=== PATIENT | male | born 1960 | race Caucasian/White ===

== ENCOUNTER → 2020-01-11 14:47 | Outpatient (BNVA) | payer OTHER, SELFPAY | PROVIDERS: PCP Family Medicine; Referring Provider Family Medicine; Visit Provider Internal Medicine Cardiovascular Disease | DX: I71.2 Thoracic aortic aneurysm, without rupture (principal); R53.83 Other fatigue; I25.10 Atherosclerotic heart disease of native coronary artery without angina pectoris; I77.9 Disorder of arteries and arterioles, unspecified; E78.5 Hyperlipidemia, unspecified; Z88.0 Allergy status to penicillin; Z88.8 Allergy status to other drugs, medicaments and biological substances; Z79.899 Other long term (current) drug therapy | CPT/HCPCS: 93005 ==

== ENCOUNTER → 2021-02-07 08:16 | Outpatient (REF) | payer OTHER, SELFPAY ==
--- NOTE | 2021-02-07 08:21 | CA_ITS ---
Transthoracic Echocardiogram Patient (Last, First, Middle): Tj Guajardo L Gender: Male Date of : 1960 Age: 60 Procedure Date: 02/07/2021 Procedure Type: Transthoracic Echocardiogram Location: OP Height: 157.48 cm Weight: 79.38 kg BSA: 1.81 m2 Heart Rate: bpm BP: 127 / 50 mmHg Phlebotomist Prn: TAJ Referring MD: Maikel Barone MD Nib Inspector: Maikel Barone MD Symptoms: I71.2 - Thoracic aortic aneurysm, without rupture Study Quality: Fair ECG Rhythm: Sinus Conclusions: - 1. Normal LV systolic and diastolic function 2. Trivial aortic regurgitation 3. Mildly dilated ascending aorta at 4 cm 4. Normal RV systolic pressure 5. No pericardial effusion Findings Left Ventricle Normal left ventricular size, thickness, and systolic function. The visually estimated ejection fraction is between 60-65%. Spectral Doppler is indicative of a normal filling pattern. Right Ventricle Normal right ventricular cavity size and systolic function. Atria Both atria are normal in size. Interatrial shunt cannot be excluded. Aortic Valve The aortic valve was not well visualized. There is no aortic valve stenosis. There is trace (trivial) aortic valve regurgitation. Mitral Valve Likely normal mitral valve structure and function. There is trace mitral valve regurgitation. There is no mitral valve stenosis. Pulmonic Valve The pulmonic valve was not well visualized. Tricuspid Valve Likely normal tricuspid valve structure and function. There is trace tricuspid valve regurgitation. The right ventricular systolic pressure is normal. The right ventricular systolic pressure is 22 mmHg. Normal right atrial pressure. There is no evidence of pulmonary hypertension. Great Vessels The pulmonary artery was not well visualized. There is mild dilatation of the ascending aorta measuring 4.00 cm. Venous The inferior vena cava is normal in size and collapses greater than 50% with inspiration. Pericardium/Pleural There is no evidence of pericardial effusion. Prior Study Comparison No significant change compared to prior study dated: 01/26/2019. Measurements 2D Linear Measurements IVSd: 0.98 0.6-0.9/0.6-1.0 cm LVIDd: 4.36 3.9-5.3/4.2-5.9 cm LVIDd Index: 2.41 2.4-3.2/2.2-3.1 cm/m2 LVIDs: 2.72 2.0-3.6 cm LVPWd: 1.21 0.7-1.1 cm Ao Root: 3.20 2.1-3.5 cm LA Diam: 2.70 2.7-3.8/3.0-4.0 cm LAIDs Index: 1.49 1.5-2.3 cm/m2 LV Mass: 206.05 67-162/88-224 g LV Mass Index: 113.84 43-95/49-115 g/m2 LVOT Diam: 2.20 3.0+(-)1.3 cm 2D Systolic Function EF 4C: 62.90 >55% EF 2C: 62.30 >55% EF BiP: 62.40 >55% Mitral Valve MV Pk E: 0.66 MV PK A: 0.64 MV Decel Time: 241.00 E/A: 1.00 E'Lateral: 10.40 E'Medial: 8.81 E/E' Med: 7.40 E/E' Lat: 6.30 PHT: 71.00 MVA PHT: 3.10 Decel [place]: 2.72 Aortic Valve AoV Pk Allan: 1.40 AoV Pk Grad: 8.00 AI Pk Allan: 3.87 AI [place]: 0.66 LVOT LVOT Pk Allan: 0.98 LVOT Mn Allan: 0.67 LVOT VTI: 0.22 LVOT Pk Grad: 4.00 LVOT Mn Grad: 2.00 LVOT Diam: 2.20 LVOT Area: 3.80 Diastolic Function MV Pk E: 0.66 MV Pk A: 0.64 E/A: 1.00 E'Medial: 8.81 E/E' Med: 7.40 E' Laterial: 10.40 E/E' Lat: 6.30 Tricuspid Valve TR Pk Allan: 2.17 TR Pk Grad: 19.00 RA Press: 3.00 RVSP: 22.00 Great Vessels Aorta Ao Root-2D: 3.20 2.0-3.7 cm Ao Asc: 4.00 2.1-3.4 cm Ao Arch: 2.70 Updated in Other Vendor System with Status of Final Maikel Barone MD electronically signed on 02/09/2021 9:56:22 AM with status of Final
== END ==
LOC: HO.CARD 08:16
PROVIDERS: PCP Family Medicine; Visit Provider Internal Medicine Cardiovascular Disease
DX: I71.2 Thoracic aortic aneurysm, without rupture (principal); I25.10 Atherosclerotic heart disease of native coronary artery without angina pectoris
CPT/HCPCS: 93306

== ENCOUNTER → 2021-02-21 11:15 | Outpatient (BNVA) | payer OTHER, SELFPAY | PROVIDERS: PCP Family Medicine; Visit Provider Internal Medicine Cardiovascular Disease | DX: I71.2 Thoracic aortic aneurysm, without rupture (principal); I25.10 Atherosclerotic heart disease of native coronary artery without angina pectoris; R60.0 Localized edema | CPT/HCPCS: 93005 ==

== ENCOUNTER → 2021-08-16 09:00 | Outpatient (BNVA) | payer OTHER, SELFPAY | PROVIDERS: PCP Family Medicine; Visit Provider Internal Medicine Cardiovascular Disease | DX: Z13.89 Encounter for screening for other disorder (principal) | CPT/HCPCS: 93005 ==

== ENCOUNTER → 2021-09-04 14:00 | Outpatient (BNVA) | payer OTHER, SELFPAY | PROVIDERS: PCP Family Medicine; Visit Provider Internal Medicine Cardiovascular Disease | DX: I71.2 Thoracic aortic aneurysm, without rupture (principal); I25.10 Atherosclerotic heart disease of native coronary artery without angina pectoris | CPT/HCPCS: 93005 ==

== ENCOUNTER 2021-12-10 12:33 | Outpatient (REF) | payer OTHER, SELFPAY ==
--- NOTE | ~2021-12-10 | US_ITS ---
EXAMINATION: US EXTRACRANIAL CAROTID DUPLEX, BILATERAL CLINICAL INFORMATION: Transient ischemic attack COMPARISON: 01/19/2018 TECHNIQUE: Real-time ultrasound and Doppler techniques (integrating B-mode 2-D vascular images, Doppler spectral analysis and color-flow Doppler imaging) were utilized to interrogate the extracranial carotid arteries, the vertebral arteries and proximal subclavian arteries bilaterally. The degree of stenosis is determined by criteria similar to NASCET. FINDINGS: Right Side: 1. There is mild atherosclerotic plaque seen in the bifurcation/proximal ICA region. 2. The common carotid artery PSV proximally is 108 cm/s and distally 80.8 cm/s. 3. The proximal internal carotid artery velocities are 101 cm/s systolic and 35.4 cm/s diastolic. 4. The proximal external carotid artery PSV is 140 cm/s. 5. The vertebral artery shows antegrade flow. 6. The subclavian artery waveforms are normal. Left Side: 1. There is minimal atherosclerotic plaque seen in the bifurcation/proximal ICA region. 2. The common carotid artery PSV proximally is 114 cm/s and distally 99.8 cm/s. 3. The proximal internal carotid artery velocities are 85.6 cm/s systolic and 28.3 cm/s diastolic. 4. The proximal external carotid artery PSV is 136 cm/s. 5. The vertebral artery shows 44 flow. 6. The subclavian artery waveforms are normal. US/US carotid duplex BI IMPRESSION: 1. RIGHT: Minimal, non-hemodynamically significant stenosis of the proximal right internal carotid artery corresponding to a 0-49% stenosis by velocity criteria. 2. LEFT: Minimal, non-hemodynamically significant stenosis of the proximal left internal carotid artery corresponding to a 0-49% stenosis by velocity criteria. 3. There is no change in the category severity of disease when compared to the previous study dated 12/19/2017.
== END 2021-12-10 12:34 | disposition home or self-care (01) ==
LOC: HO.HMGCX 12:33
PROVIDERS: PCP Family Medicine; Visit Provider Psychiatry & Neurology Neurology
DX: R47.9 Unspecified speech disturbances (principal); Z86.73 Personal history of transient ischemic attack (TIA), and cerebral infarction without residual deficits
CPT/HCPCS: 93880

== ENCOUNTER → 2021-12-11 14:39 | Outpatient (REF) | payer OTHER, SELFPAY | LOC: HO.SL 14:39 | PROVIDERS: PCP Family Medicine; Visit Provider Psychiatry & Neurology Neurology | DX: G47.9 Sleep disorder, unspecified (principal); G47.10 Hypersomnia, unspecified; R06.83 Snoring | CPT/HCPCS: 95806 ==

== ENCOUNTER → 2022-02-04 12:43 | Outpatient (REF) | payer OTHER, SELFPAY ==
--- NOTE | 2022-02-04 12:46 | CA_ITS ---
Transthoracic Echocardiogram Patient (Last, First, Middle): Tj Guajardo L Gender: Male Date of : 1960 Age: 61 Procedure Date: 02/04/2022 Procedure Type: Transthoracic Echocardiogram Location: OP Height: 157.48 cm Weight: 90.72 kg BSA: 1.91 m2 Heart Rate: 66 bpm BP: 138 / 72 mmHg Associate Publisher: BRYANT Referring MD: Maikel Barone MD Symptoms: I71.2 - Thoracic aortic aneurysm, without rupture Study Quality: Adequate w contrast ECG Rhythm: Sinus Conclusions: - The left ventricular systolic function is normal. The visually estimated ejection fraction is between 60-65%. - No obvious valvular pathology seen on this study. - There is mild dilatation of the ascending aorta (4-4.1cm). Findings Procedure Information Contrast agent, definity, is being given per protocol without apparent complications. Left Ventricle Normal left ventricular cavity size. The left ventricular systolic function is normal. The visually estimated ejection fraction is between 60-65%. There is no evidence of regional wall motion abnormalities. Diastolic function is normal for age. There is mild septal asymmetric hypertrophy. Right Ventricle Normal right ventricular cavity size and systolic function. Atria Both atria are normal in size. Aortic Valve There is mild calcification of the aortic valve. There is no aortic valve stenosis. There is no aortic valve regurgitation. Mitral Valve The mitral valve appears normal. There is no mitral valve regurgitation. There is no mitral valve stenosis. Pulmonic Valve The pulmonic valve is likely normal. Great Vessels The aortic arch is normal in size. There is mild dilatation of the ascending aorta. Venous The inferior vena cava is normal in size and collapses greater than 50% with inspiration. Pericardium/Pleural There is no evidence of pericardial effusion. Prior Study Comparison No significant change compared to prior study dated: 02/07/2021. Recommendations, Care & Conclusions No obvious valvular pathology seen on this study. Measurements 2D Linear Measurements IVSd: 1.20 0.6-0.9/0.6-1.0 cm LVIDd: 3.61 3.9-5.3/4.2-5.9 cm LVIDd Index: 1.89 2.4-3.2/2.2-3.1 cm/m2 LVIDs: 2.61 2.0-3.6 cm LVPWd: 0.95 0.7-1.1 cm LA Diam: 3.20 2.7-3.8/3.0-4.0 cm LAIDs Index: 1.68 1.5-2.3 cm/m2 LV Mass: 149.51 67-162/88-224 g LV Mass Index: 78.28 43-95/49-115 g/m2 LVOT Diam: 2.00 3.0+(-)1.3 cm 2D Systolic Function EF 4C: 79.80 >55% EF 2C: 79.90 >55% Mitral Valve MV Pk E: 0.78 MV PK A: 0.77 MV Decel Time: 223.00 E/A: 1.00 E'Lateral: 8.92 E'Medial: 5.87 E/E' Med: 13.40 E/E' Lat: 8.80 PHT: 65.00 MVA PHT: 3.38 Decel [place]: 3.52 Aortic Valve AoV Pk Allan: 1.29 AoV Pk Grad: 7.00 LVOT LVOT Pk Allan: 1.29 LVOT Mn Allan: 0.90 LVOT VTI: 0.24 LVOT Pk Grad: 7.00 LVOT Mn Grad: 4.00 LVOT Diam: 2.00 LVOT Area: 3.14 Diastolic Function MV Pk E: 0.78 MV Pk A: 0.77 E/A: 1.00 E'Medial: 5.87 E/E' Med: 13.40 E' Laterial: 8.92 E/E' Lat: 8.80 Right Ventricle TAPSE (mm): 20.90 TVS' Allan: 12.40 Tricuspid Valve RA Press: 3.00 Great Vessels Aorta Sinus of Valsalva: 3.30 2.0-3.5 cm Ao Asc: 4.00 2.1-3.4 cm Ao Arch: 2.60 Ao Desc: 2.10 Pulmonary Veins Pulm Vein S/D 1.10 Pulmonary Valve PV Pk Allan: 1.15 Peak PV Grad: 5.00 Updated in Other Vendor System with Status of Final Lalo Oneill MD electronically signed on 02/05/2022 12:34:59 PM with status of Final
== END ==
LOC: HO.CARD 12:43
PROVIDERS: Visit Provider Internal Medicine Cardiovascular Disease
DX: I71.20 Thoracic aortic aneurysm, without rupture, unspecified (principal)
CPT/HCPCS: 93306; Q9957

== ENCOUNTER → 2022-05-06 20:30 | Outpatient (REF) | payer OTHER, SELFPAY | LOC: HO.SL 20:30 | PROVIDERS: Visit Provider Psychiatry & Neurology Neurology | DX: G47.9 Sleep disorder, unspecified (principal); G47.10 Hypersomnia, unspecified; G47.61 Periodic limb movement disorder; Z86.73 Personal history of transient ischemic attack (TIA), and cerebral infarction without residual deficits | CPT/HCPCS: 95810 ==

== ENCOUNTER → 2022-06-28 13:42 | Outpatient (BNVA) | payer OTHER, SELFPAY | PROVIDERS: PCP Family Medicine; Visit Provider Psychiatry & Neurology Neurology | DX: Z13.89 Encounter for screening for other disorder (principal) ==

== ENCOUNTER 2023-01-03 10:22 | Outpatient (AMB) | payer OTHER, SELFPAY ==
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
[2023-01-03 10:28] VITALS: BP 122/82; PULSE 61; RESP 16; O2SAT 94; BMI 35.7
== END 2023-01-03 11:06 | disposition home or self-care (01) ==
PROVIDERS: Visit Provider Psychiatry & Neurology Neurology
DX: I69.354 Hemiplegia and hemiparesis following cerebral infarction affecting left non-dominant side (principal); F06.70 Mild neurocognitive disorder due to known physiological condition without behavioral disturbance; F80.1 Expressive language disorder; R51.9 Headache, unspecified; G89.29 Other chronic pain; G47.9 Sleep disorder, unspecified; G47.10 Hypersomnia, unspecified; R06.83 Snoring; G51.0 Bell's palsy
CPT/HCPCS: 99214

== ENCOUNTER → 2023-01-03 10:22 | Outpatient (BNVA) | payer OTHER, SELFPAY | PROVIDERS: Visit Provider Psychiatry & Neurology Neurology | DX: R47.9 Unspecified speech disturbances (principal); Z86.73 Personal history of transient ischemic attack (TIA), and cerebral infarction without residual deficits; F09 Unspecified mental disorder due to known physiological condition; R51.9 Headache, unspecified; G89.29 Other chronic pain ==

== ENCOUNTER → 2023-01-16 19:30 | Outpatient (REF) | payer OTHER, SELFPAY | LOC: HO.SL 19:30 | PROVIDERS: PCP Family Medicine; Visit Provider Psychiatry & Neurology Neurology | DX: G47.10 Hypersomnia, unspecified (principal); G47.9 Sleep disorder, unspecified; R06.83 Snoring; R09.89 Other specified symptoms and signs involving the circulatory and respiratory systems | CPT/HCPCS: 95810 ==

== ENCOUNTER → 2023-01-16 21:55 | Outpatient (BNV) | payer OTHER, SELFPAY | PROVIDERS: PCP Family Medicine; Visit Provider Psychiatry & Neurology Neurology | DX: G47.61 Periodic limb movement disorder (principal) | CPT/HCPCS: 95810 ==

== ENCOUNTER → 2023-02-24 12:39 | Outpatient (REF) | payer OTHER, SELFPAY ==
--- NOTE | 2023-02-24 12:41 | CA_ITS ---
Transthoracic Echocardiogram Patient (Last, First, Middle): Tj Guajardo L Gender: Male Date of : 1960 Age: 62 Procedure Date: 02/24/2023 Procedure Type: Transthoracic Echocardiogram Location: OP Height: 157.48 cm Weight: 88.45 kg BSA: 1.89 m2 Heart Rate: bpm BP: 124 / 74 mmHg Snapper On: JOHN/SEAN Referring MD: Maikel Barone MD Symptoms: I71.2 - Thoracic aortic aneurysm, without rupture Study Quality: Fair ECG Rhythm: Sinus Conclusions: - The left ventricular systolic function is normal. The calculated ejection fraction is 62% by biplane method. - Trace to mild aortic regurgitation. - There is mild dilatation of the ascending aorta measuring 4.00 cm. Findings Left Ventricle Normal left ventricular cavity size. The left ventricular systolic function is normal. The calculated ejection fraction is 62% by biplane method. There is no evidence of regional wall motion abnormalities. Diastolic function is normal for age. There is mild septal asymmetric hypertrophy. LV peak GLS 16.6%. Right Ventricle Normal right ventricular cavity size and systolic function. Atria Both atria are normal in size. Aortic Valve There is a normal trileaflet aortic valve. There is mild calcification of the aortic valve. There is no aortic valve stenosis. Trace to mild aortic regurgitation. Mitral Valve The mitral valve appears normal. There is no mitral valve regurgitation. There is no mitral valve stenosis. Pulmonic Valve The pulmonic valve is likely normal. Tricuspid Valve There is no tricuspid valve regurgitation. Tricuspid regurgitation envelope is inadequate for calculation of right ventricular systolic pressure. Great Vessels There is mild dilatation of the ascending aorta measuring 4.00 cm. Venous The inferior vena cava is normal in size and collapses greater than 50% with inspiration. Pericardium/Pleural There is no evidence of pericardial effusion. Prior Study Comparison No significant change compared to prior study dated: 02/04/2022. Measurements 2D Linear Measurements IVSd: 1.21 0.6-0.9/0.6-1.0 cm LVIDd: 4.29 3.9-5.3/4.2-5.9 cm LVIDd Index: 2.27 2.4-3.2/2.2-3.1 cm/m2 LVIDs: 3.42 2.0-3.6 cm LVPWd: 0.73 0.7-1.1 cm LA Diam: 2.70 2.7-3.8/3.0-4.0 cm LAIDs Index: 1.43 1.5-2.3 cm/m2 LV Mass: 169.00 67-162/88-224 g LV Mass Index: 89.42 43-95/49-115 g/m2 LVOT Diam: 2.00 3.0+(-)1.3 cm 2D Systolic Function EF 4C: 60.20 >55% EF 2C: 64.90 >55% EF BiP: 62.30 >55% Mitral Valve MV Pk E: 0.66 MV PK A: 0.68 MV Decel Time: 253.00 E/A: 1.00 E'Lateral: 8.49 E'Medial: 5.22 E/E' Med: 12.70 E/E' Lat: 7.80 PHT: 74.00 MVA PHT: 2.97 Decel [place]: 2.62 Aortic Valve AoV Pk Allan: 1.32 AoV Mn Allan: 0.94 AoV VTI: 0.29 AoV Pk Grad: 7.00 Aov Mn Grad: 4.00 CASSIE Cont.VTI: 2.28 LVOT LVOT Pk Allan: 1.04 LVOT Mn Allan: 0.70 LVOT VTI: 0.21 LVOT Pk Grad: 4.00 LVOT Mn Grad: 2.00 LVOT Diam: 2.00 LVOT Area: 3.14 Diastolic Function MV Pk E: 0.66 MV Pk A: 0.68 E/A: 1.00 E'Medial: 5.22 E/E' Med: 12.70 E' Laterial: 8.49 E/E' Lat: 7.80 Right Ventricle TAPSE (mm): 22.60 TVS' Allan: 12.80 Tricuspid Valve RA Press: 3.00 Great Vessels Aorta Sinus of Valsalva: 3.30 2.0-3.[address] [place]: 2.57 1.7-3.4 cm Ao Asc: 4.00 2.1-3.4 cm Updated in Other Vendor System with Status of Final Lalo nOeill MD electronically signed on 02/25/2023 12:51:44 PM with status of Final
== END ==
LOC: HO.CARD 12:39
PROVIDERS: PCP Family Medicine; Visit Provider Internal Medicine Cardiovascular Disease
DX: I71.20 Thoracic aortic aneurysm, without rupture, unspecified (principal)
CPT/HCPCS: 93306; 93356

== ENCOUNTER → 2023-02-24 12:41 | Outpatient (BNV) | payer OTHER, SELFPAY | PROVIDERS: PCP Family Medicine; Visit Provider Internal Medicine | DX: I35.1 Nonrheumatic aortic (valve) insufficiency (principal) | CPT/HCPCS: 93306 ==

== ENCOUNTER 2023-03-18 09:33 | Outpatient (AMB) | payer OTHER, SELFPAY ==
--- NOTE | 2023-03-18 09:40 | MHC.OFFVIS ---
Intake Vital Signs 03/18/23 09:41 Height 5 ft 2 in Weight 189 lb 9.561 oz BMI 34.7 BP 124/82 Blood Pressure Location Lt brachial Position Sitting Pulse 66 Intake Visit Reasons: 1 year follow-up with ekg Intake Note: 1 year follow-up with ekg after echo Installer Helper Required: No Puncher And Fastener: Puncher And Fastener Present Accompanied by: Spouse Allergies duloxetine Allergy (Mild, Verified 01/03/23 10:27) Chest Pain hydrochlorothiazide Allergy (Mild, Verified 01/03/23 10:27) Palpitations morphine [Morphine] Allergy (Mild, Unverified 01/03/23 10:27) NAUSEA & VOMITING TO NARCOTICS, nausea, vomiting melatonin Allergy (Unknown, Verified 01/03/23 10:27) migraines nebivolol [Bystolic] Allergy (Unknown, Verified 01/03/23 10:27) hypotension nortriptyline Allergy (Unknown, Verified 01/03/23 10:27) dizziness oxycodone [Percocet] Allergy (Unknown, Verified 01/03/23 10:27) nausea,vomiting penicillin V Allergy (Unknown, Verified 01/03/23 10:27) hives topiramate Allergy (Unknown, Verified 01/03/23 10:27) dizziness meperidine [From Demerol] Adverse Reaction (Mild, Unverified 01/03/23 10:27) NAUSEA & VOMITING TO NARCOTICS Medication List - Last Reconciled 03/18/23 by Maikel Barone MD albuterol sulfate 90 mcg/actuation (ProAir HFA) 1 inh inhalation QID allopurinol 300 mg PO DAILY aspirin 81 mg PO DAILY buspirone 7.5 mg PO BID cyclobenzaprine 5 mg PO BEDTIME epinephrine IM gabapentin 200 mg (2 x 100 mg) PO BEDTIME 30 days ketorolac 10 mg PO TID PRN losartan 25 mg PO DAILY magnesium oxide 400 mg PO BEDTIME meclizine 25 mg PO DAILY PRN ondansetron HCl 4 mg PO Q8H riboflavin (vitamin B2) 400 mg PO DAILY rosuvastatin 20 mg PO DAILY sertraline 200 mg PO DAILY HPI HPI Comments History of Present Illness Details Doc comes for follow-up, accompanied by his . He was admitted in December with UTI related sepsis related to procedure. He subsequently another UTI. Patient denies any cardiac complaints. Blood pressure is generally well controlled. He is most recent echocardiogram shows stable ascending aortic aneurysm at 4 cm. Has leg edema mostly in the right lower extremity being followed by vascular surgery. Denies any exertional chest pain. No heart failure symptoms. [facility] Medical History Snoring Cerebrovascular accident Anxiety Depression Cognitive dysfunction Sleep disorder GERD (gastroesophageal reflux disease) Chronic headaches Kidney stones Thoracic aortic aneurysm PVCs (premature ventricular contractions) CAD (coronary artery disease) Hyperlipidemia Left-sided carotid artery disease CAD (coronary artery disease) Thoracic aortic aneurysm Surgical History History of lithotripsy S/P right knee surgery H/O elbow surgery S/P left knee surgery Hx of cardiac cath (~2012) Family History Father Dementia Mother Heart disease Brother CVD (cardiovascular disease) Social History Alcohol intake: never Patient Tobacco Use Status: Former Tobacco user Tobacco use type: Cigarette Gender identity: Male Review of Systems Const Denies chills, Denies fatigue, Denies fever(s), Denies frequent falls, Denies weakness, Denies weight gain and Denies weight loss ENT Denies dizziness Card Denies chest pain, Denies leg edema, Denies lightheadedness, Denies palpitations, Denies dyspnea, Denies dyspnea on exertion, Denies orthopnea and Denies other (loss of consciousness) Resp Denies cough, Denies dyspnea and Denies dyspnea on exertion GI Denies hematochezia and Denies change in stool character Musc Denies abnormal gait, Denies muscle weakness, Denies numbness, Denies radiating pain into limb and Denies tingling Neuro Denies abnormal gait, Denies dizziness, Denies frequent falls, Denies numbness, Denies tingling and Denies weakness Endo Denies fatigue and Denies palpitations Physical Exam Vital Signs: Last Vital Signs Pulse 66 03/18/23 09:41 BP 124/82 03/18/23 09:41 BMI result Body Mass Index 34.7 Const General: cooperative, healthy appearing, comfortable, no acute distress, well developed, alert and awake Nutritional Appearance: obese Orientation/consciousness: patient oriented x3 Limitations: no limitations Eyes General: appearance normal, both eyes and all related structures Neck Neck: Yes full ROM, Yes trachea midline, Yes supple and Yes no JVD Carotids: other ( No carotid bruit) Chest Chest palpation & inspection: normal inspection of the chest Resp Effort & Inspection: normal respiratory effort Auscultation: clear to auscultation bilaterally Cardio Jugular venous distension: no JVD Rate: regular rate Rhythm: regular rhythm Heart sounds: S1 normal heart sound present and S2 normal heart sound present Peripheral pulses: Peripheral pulses 2+ throughout GI Inspection: Yes normal to inspection Auscultation: normal bowel sounds Skin General skin exam: no rashes or lesions noted, elasticity normal and turgor normal Neuro General: patient oriented x3 and no focal motor deficits Extrem General: Yes no clubbing, cyanosis or edema Psych Appearance: grossly normal Office Procedures EKG Details: EKG shows normal sinus rhythm with low-voltage QRS with Q-waves in lead 3 and AVF consistent with pseudo infarct pattern inferior wall due to body habitus [id number], Complete Assessment & Plan Assessment & Plan (1) Thoracic aortic aneurysm: Code(s): I71.2 - Thoracic aortic aneurysm, without rupture Plan: Patient with mild thoracic aortic aneurysm which has remained stable at least last 5 years. Will follow every 2 years now. Management of ascending aortic aneurysm was discussed. No surgical intervention recommended. Continue aggressive blood pressure control at this point in time. (2) CAD (coronary artery disease): Code(s): I25.10 - Atherosclerotic heart disease of [place] coronary artery without angina pectoris Plan: CAD nonobstructive with no current cardiac symptoms. Continue low-dose aspirin therapy. Continue high-intensity statin therapy. Target goal LDL closer to 60 mg/dL. Continue heart healthy lifestyle with regular physical activity. Continue participate in weight loss. Continue aggressive blood pressure control. See below (3) Labile blood pressure: Code(s): R09.89 - Other specified symptoms and signs involving the circulatory and respiratory systems Plan: Labile blood pressure which has been difficult control, currently controlled on low-dose losartan therapy. Stress mitigation strategies was discussed. Low-salt diet was discussed. Advised to maintain adequate hydration. Follow up in the clinic in 2 years time, sooner p.r.n.. Thank you for allowing me to partake in his care Coding Level of Care Code Est Pt Level 4 (28481) Diagnoses Thoracic aortic aneurysm I71.2 CAD (coronary artery disease) I25.10 Labile blood pressure R09.89 CPT Codes EKG - CPT: 28619-[id number], Complete ([id number])
[2023-03-18 09:41] VITALS: BP 124/82; PULSE 66; BMI 34.7
== END 2023-03-18 10:01 | disposition home or self-care (01) ==
PROVIDERS: PCP Family Medicine; Visit Provider Internal Medicine Cardiovascular Disease
DX: I71.20 Thoracic aortic aneurysm, without rupture, unspecified (principal); I25.10 Atherosclerotic heart disease of native coronary artery without angina pectoris; R09.89 Other specified symptoms and signs involving the circulatory and respiratory systems
CPT/HCPCS: 93010; 99214

== ENCOUNTER → 2023-03-18 09:33 | Outpatient (BNVA) | payer OTHER, SELFPAY | PROVIDERS: PCP Family Medicine; Visit Provider Internal Medicine Cardiovascular Disease | DX: I71.20 Thoracic aortic aneurysm, without rupture, unspecified (principal); I25.10 Atherosclerotic heart disease of native coronary artery without angina pectoris; R09.89 Other specified symptoms and signs involving the circulatory and respiratory systems; Z79.82 Long term (current) use of aspirin; Z79.899 Other long term (current) drug therapy | CPT/HCPCS: 93005 ==

== ENCOUNTER 2023-08-12 10:14 | Outpatient (AMB) | payer MEDICAID, SELFPAY ==
[2023-08-12 10:30] VITALS: BP 138/82; BMI 34.7
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
== END 2023-08-12 11:03 | disposition home or self-care (01) ==
PROVIDERS: PCP Family Medicine; Visit Provider Psychiatry & Neurology Neurology
DX: I69.328 Other speech and language deficits following cerebral infarction (principal); I69.318 Other symptoms and signs involving cognitive functions following cerebral infarction; R51.9 Headache, unspecified; G89.29 Other chronic pain; G47.9 Sleep disorder, unspecified; G25.81 Restless legs syndrome; G47.61 Periodic limb movement disorder
CPT/HCPCS: 99214; G2211

== ENCOUNTER → 2023-08-12 10:14 | Outpatient (BNVA) | payer MEDICAID, SELFPAY | PROVIDERS: PCP Family Medicine; Visit Provider Psychiatry & Neurology Neurology | DX: R51.9 Headache, unspecified (principal); G89.29 Other chronic pain; R47.9 Unspecified speech disturbances; G25.81 Restless legs syndrome; G47.61 Periodic limb movement disorder; G47.9 Sleep disorder, unspecified; F09 Unspecified mental disorder due to known physiological condition; Z86.73 Personal history of transient ischemic attack (TIA), and cerebral infarction without residual deficits | CPT/HCPCS: 99212 ==

== ENCOUNTER 2024-02-02 07:21 | Outpatient (AMB) | payer MEDICARE, MEDICAID, SELFPAY ==
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
[2024-02-02 07:33] VITALS: BP 134/88; BMI 34.7
== END 2024-02-02 08:08 | disposition home or self-care (01) ==
PROVIDERS: PCP Family Medicine; Visit Provider Psychiatry & Neurology Neurology
DX: G43.E19 Chronic migraine with aura, intractable, without status migrainosus (principal); R47.9 Unspecified speech disturbances; Z86.73 Personal history of transient ischemic attack (TIA), and cerebral infarction without residual deficits; G25.81 Restless legs syndrome; G47.61 Periodic limb movement disorder; R41.89 Other symptoms and signs involving cognitive functions and awareness
CPT/HCPCS: 99214; G2211

== ENCOUNTER → 2024-02-02 07:21 | Outpatient (BNVA) | payer MEDICARE, MEDICAID, SELFPAY | PROVIDERS: PCP Family Medicine; Visit Provider Psychiatry & Neurology Neurology | DX: G43.E19 Chronic migraine with aura, intractable, without status migrainosus (principal); G47.61 Periodic limb movement disorder; G25.81 Restless legs syndrome; R47.9 Unspecified speech disturbances; F09 Unspecified mental disorder due to known physiological condition; Z86.73 Personal history of transient ischemic attack (TIA), and cerebral infarction without residual deficits | CPT/HCPCS: 99212 ==

== ENCOUNTER 2024-02-24 13:14 | Outpatient (AMB) | payer MEDICARE, MEDICAID, SELFPAY ==
--- NOTE | 2024-02-24 13:15 | MHC.OFFVIS ---
Intake Visit Reasons: BOTOX Intake Note: Patient presents for botox Allergies duloxetine Allergy (Mild, Verified 02/02/24 07:38) Chest Pain hydrochlorothiazide Allergy (Mild, Verified 02/02/24 07:38) Palpitations morphine [Morphine] Allergy (Mild, Unverified 02/02/24 07:38) NAUSEA & VOMITING TO NARCOTICS, nausea, vomiting melatonin Allergy (Unknown, Verified 02/02/24 07:38) migraines nebivolol [Bystolic] Allergy (Unknown, Verified 02/02/24 07:38) hypotension nortriptyline Allergy (Unknown, Verified 02/02/24 07:38) dizziness oxycodone [Percocet] Allergy (Unknown, Verified 02/02/24 07:38) nausea,vomiting penicillin V Allergy (Unknown, Verified 02/02/24 07:38) hives topiramate Allergy (Unknown, Verified 02/02/24 07:38) dizziness meperidine [From Demerol] Adverse Reaction (Mild, Unverified 02/02/24 07:38) NAUSEA & VOMITING TO NARCOTICS HPI Comments Details: ? 63y/o male comes for treatment of migraines with botox. ??? Most frequent reported adverse reactions following injection of botox for chronic migraine include neck pain (9%), headache(5%), eyelid ptosis(4%), migraine(4%), muscular weakness(4%), musculuskeletal stiffness(4%), bronchitis(3%), injection site pain (3%), musculoskeletal pain(3%), myalgia(3%), facial paresis(2%), HTN(2%) and muscle spasms(2%) were discussed in detail. ??? Botulinum toxin typeA 200units Lot no [id number] expiration Nov 2025 was diluted with 4 cc of normal saline . ??? Muscles injected- ??? Frontalis 4 sites ??? Procerus 1 site ??? Historiographer- 2 sites ??? Temporalis- 8 sites ??? Occipitalis- 6 sites ??? Cervical paraspinals- 4 sites ??? Trapezius- 6 sites- 10 units each ??? 5 units each in 31 site ??? Total use- 185units ??? Discarded-15units FOR[facility]LY [facility], [facility] Medical History Chronic migraine with aura Restless legs syndrome (RLS) Snoring Cerebrovascular accident Anxiety Depression Cognitive dysfunction Sleep disorder GERD (gastroesophageal reflux disease) Chronic headaches Kidney stones Thoracic aortic aneurysm PVCs (premature ventricular contractions) CAD (coronary artery disease) Hyperlipidemia Left-sided carotid artery disease CAD (coronary artery disease) Thoracic aortic aneurysm Surgical History History of lithotripsy S/P right knee surgery H/O elbow surgery S/P left knee surgery Hx of cardiac cath (~2012) Family History Father Dementia Mother Heart disease Brother CVD (cardiovascular disease) Social History Alcohol intake: never Patient Tobacco Use Status: Former Tobacco user Tobacco use type: Cigarette Gender identity: Male Review of Systems ENT Reports Normal hearing present Neuro Reports Normal hearing present Physical Exam Const General: cooperative, comfortable and anxious Nutritional Appearance: obese Orientation/consciousness: patient oriented x3 HEENT Head: Yes normal to inspection, Yes normocephalic and Yes atraumatic Eyes Pupils: Equal, round and reactive pupils present Neuro Other: speech is better General: patient oriented x3 and gait normal Cranial nerves: Yes CN's II-XII intact bilaterally, Yes Facial sensation intact/muscles of mastication intact, Yes Equal, round and reactive pupils present, Yes Bilaterally intact EOM present, Yes Nystagmus not present, Yes Normal facial strength present, Yes Midline tongue present, Yes Symmetric palate elevation present, Yes Normal hearing present and Yes Ability to bilaterally elevate shoulders present Gait exam (Neuro): Normal gait present Motor exam (neuro): 5/5 motor strength present throughout and Normal motor muscle tone present throughout Psych Affect: Anxious affect present and Depressed mood present Office Procedures Botulinum toxin Injection 14812 - Migraine Procedure code (CPT) selection complete Office Meds onabotulinumtoxinA 200 unit solution for injection Performing Provider: Mahogany Townsend MD Performing Location: [facility] Administered by: Mahogany Townsend MD on 02/24/24 13:58 Dose Route Admin Location Dispensed Lot Number Expiration Date [facility] Industrial Relations Counselor 185 unit subcut 200 units [id number] ALLERGAN/BOTOX Comments: see HPI Assessment & Plan Assessment & Plan (1) Chronic migraine with aura: Code(s): G43.E09 - Chronic migraine with aura, not intractable, without status migrainosus Category: Medical Qualifiers: Status migrainosus presence: without status migrainosus Intractability: intractable Qualified Code(s): G43.E19 - Chronic migraine with aura, intractable, without status migrainosus Plan Patient tolerated the procedure well He will call with any side effects Orders: Orders AMB Botulinum toxin Injection Today G43.E19 - Chronic migraine with aura, intractable, without status migrainosus Medications: New onabotulinumtoxinA 200 units subcut ONCE 1 ea 0RF migraine G43.E19 - Chronic migraine with aura, intractable, without status migrainosus Coding Level of Care Code Est Pt Level 1 (49035) Diagnoses Intractable chronic migraine with aura and without status migrainosus G43.E19 Status migrainosus presence: without status migrainosus Intractability: intractable CPT Codes Botox Injection - Botox 3: 88139 - Migraine ([id number])
== END 2024-02-24 13:36 | disposition home or self-care (01) ==
PROVIDERS: PCP Family Medicine; Visit Provider Psychiatry & Neurology Neurology
DX: G43.E19 Chronic migraine with aura, intractable, without status migrainosus (principal)
CPT/HCPCS: 64615

== ENCOUNTER → 2024-02-24 13:14 | Outpatient (BNVA) | payer MEDICARE, MEDICAID, SELFPAY | PROVIDERS: PCP Family Medicine; Visit Provider Psychiatry & Neurology Neurology | DX: G43.E19 Chronic migraine with aura, intractable, without status migrainosus (principal) | CPT/HCPCS: 64615; 99211; J0585 ==

== ENCOUNTER 2024-05-20 13:20 | Outpatient (AMB) | payer MEDICARE, MEDICAID, SELFPAY ==
--- NOTE | 2024-05-20 13:30 | A.OFFVIS_ITS ---
Vital Signs 05/20/24 13:31 05/20/24 13:52 05/20/24 13:53 05/20/24 13:55 Height 5 ft 1 in Weight 191 lb 12.835 oz BMI 36.2 BP 124/68 134/66 129/65 127/69 Blood Pressure Location Lt brachial Lt brachial Lt brachial Lt brachial Position Sitting Supine Sitting Standing Pulse 62 67 66 Pulse Source Pulse Oximeter Pulse Oximeter Pulse Oximeter Intake Visit Reasons: f/u erratic bp and increased sob Allergies duloxetine Allergy (Mild, Verified 02/02/24 07:38) Chest Pain hydrochlorothiazide Allergy (Mild, Verified 02/02/24 07:38) Palpitations morphine [Morphine] Allergy (Mild, Unverified 02/02/24 07:38) NAUSEA & VOMITING TO NARCOTICS, nausea, vomiting melatonin Allergy (Unknown, Verified 02/02/24 07:38) migraines nebivolol [Bystolic] Allergy (Unknown, Verified 02/02/24 07:38) hypotension nortriptyline Allergy (Unknown, Verified 02/02/24 07:38) dizziness oxycodone [Percocet] Allergy (Unknown, Verified 02/02/24 07:38) nausea,vomiting penicillin V Allergy (Unknown, Verified 02/02/24 07:38) hives topiramate Allergy (Unknown, Verified 02/02/24 07:38) dizziness meperidine [From Demerol] Adverse Reaction (Mild, Unverified 02/02/24 07:38) NAUSEA & VOMITING TO NARCOTICS Medication List - Last Reconciled 05/20/24 by Jose Juan Lake NP albuterol sulfate 90 mcg/actuation (ProAir HFA) 1 inh inhalation QID allopurinol 300 mg PO DAILY aspirin 81 mg PO DAILY buspirone 7.5 mg PO BID coenzyme Q10 (Co Q-10) 200 mg PO DAILY cyclobenzaprine 5 mg PO BEDTIME epinephrine IM gabapentin 100 mg PO .qhs ketorolac 10 mg PO TID PRN losartan 50 mg PO DAILY magnesium oxide 400 mg PO BEDTIME meclizine 25 mg PO DAILY PRN ondansetron HCl 4 mg PO Q8H riboflavin (vitamin B2) 400 mg PO DAILY rosuvastatin 20 mg PO DAILY sertraline 150 mg PO DAILY HPI Comments Details: This is a 64-year-old male patient with a history of hypertension, coronary artery disease, aortic aneurysm, and obesity presenting with complaints of shortness of breath on exertion and dizziness. Patient reports that his blood pressure has also been fluctuating ranging from the 120s to 150s systolic. He was previously on losartan 25 mg but his primary care provider increased the dosage to 50 mg yesterday. The patient describes that his dizziness is nonpositional and random in nature. In addition he has been experiencing pins and needles sensation throughout his body for which he is under the care of neurology. The patient denies any other associated symptoms of exertional chest pain, palpitations, fatigue, orthopnea, PND, leg edema, presyncope, or syncope. Patient reports being compliant with his medications. FORMERLY [facility] Medical History Chronic migraine with aura Restless legs syndrome (RLS) Snoring Cerebrovascular accident Anxiety Depression Cognitive dysfunction Sleep disorder GERD (gastroesophageal reflux disease) Chronic headaches Kidney stones Thoracic aortic aneurysm PVCs (premature ventricular contractions) CAD (coronary artery disease) Hyperlipidemia Left-sided carotid artery disease CAD (coronary artery disease) Thoracic aortic aneurysm Surgical History History of lithotripsy S/P right knee surgery H/O elbow surgery S/P left knee surgery Hx of cardiac cath (~2012) Family History Father Dementia Mother Heart disease Brother CVD (cardiovascular disease) Social History Alcohol intake: never Patient Tobacco Use Status: Former Tobacco user Tobacco use type: Cigarette Gender identity: Male Review of Systems Const Denies weakness ENT Denies dizziness Card Denies chest pain, Denies chest pain with activity, Denies syncope, Denies rapid heart rate, Denies pedal edema, Denies edema, Denies leg edema, Reports lightheadedness, Denies palpitations, Reports dyspnea, Denies dyspnea on exertion and Denies orthopnea Resp Denies cough, Reports dyspnea and Denies dyspnea on exertion GI Denies hematochezia and Denies change in stool character Musc Denies abnormal gait, Denies muscle cramps, Denies muscle weakness, Denies numbness, Denies radiating pain into limb and Denies tingling Neuro Denies abnormal gait, Denies dizziness, Denies syncope, Denies numbness, Denies tingling and Denies weakness Endo Denies palpitations Physical Exam Vital Signs: Last Vital Signs Pulse 66 05/20/24 13:55 BP 127/69 05/20/24 13:55 BMI result Body Mass Index 36.2 Const General: cooperative, healthy appearing, comfortable and no acute distress Orientation/consciousness: patient oriented x3 HEENT Head: Yes normal to inspection Neck Neck: Yes normal visual inspection, Yes trachea midline and Yes supple Chest Chest palpation & inspection: normal inspection of the chest Resp Effort & Inspection: normal respiratory effort Auscultation: clear to auscultation bilaterally, no crackles, no rales, no rhonchi and no wheezes Cardio Jugular venous distension: no JVD Palpation: normal PMI Rate: regular rate Rhythm: regular rhythm Heart sounds: S1 normal heart sound present, S2 normal heart sound present, no click, no gallops, no murmurs and no rubs Peripheral pulses: Peripheral pulses 2+ throughout GI Inspection: Yes normal to inspection Palpation (GI): Soft to palpation Auscultation: normal bowel sounds Skin General skin exam: no rashes or lesions noted Neuro General: patient oriented x3 Extrem General: Yes normal to inspection, No no pedal edema and No calf tenderness Psych Appearance: grossly normal Mental Status: mental status grossly normal Speech and movement: Normal speech and movement present Office Procedures EKG Details: EKG today shows normal sinus rhythm, rate 63 beats per minute, low-voltage QRS, nonspecific T-wave changes, [place], [place] [id number]-[id number], Complete Assessment & Plan Assessment & Plan (1) Dyspnea: Code(s): R06.00 - Dyspnea, unspecified Category: Medical (2) Dizziness: Code(s): R42 - Dizziness and giddiness Category: Medical (3) Thoracic aortic aneurysm: Code(s): I71.2 - Thoracic aortic aneurysm, without rupture Category: Medical (4) CAD (coronary artery disease): Code(s): I25.10 - Atherosclerotic heart disease of [place] coronary artery without angina pectoris Category: Medical (5) Labile blood pressure: Code(s): R09.89 - Other specified symptoms and signs involving the circulatory and respiratory systems Category: Medical Plan 02/24/2023-echo study showed a normal EF of 62%, trace to mild aortic regurgitation, mild dilation of the ascending aorta at 4 cm. Patient's symptoms are concerning given his significant risk factors. We will proceed with an exercise stress test to evaluate for any ischemic changes. Additionally, we will repeat an echocardiogram to look for any wall motion abno rmalities, valvular dysfunction, and to monitor the aortic aneurysm. The patient is clinically euvolemic today. His orthostatic blood pressures were negative. Continue losartan 50 mg daily with a goal less than 130/80. Patient's most recent LDL at his PCP was 67, within the goal of less than 70. Continue Crestor. The patient mentioned that a previous provider had recommended a loop recorder due to concerns about a potential arrhythmia. No records of this. However, we will proceed with a 3 day Holter monitor to assess for any arrhythmic activity. Advised with the patient to continue with his weight loss management through diet and exercise. Patient will follow up with completion of these tests. In the interim, patient will call us with any concerns or change in symptoms. This note was generated using voice recognition software. While every effort has been made to ensure accuracy and proper internet e commerce specialist, there may be occasional errors that could affect the content or meaning of the described symptoms. Orders: Orders ECG 3 day holter monitor Today R00.2 - Palpitations, R06.00 - Dyspnea, unspecified AMB EKG-In Office Today R42 - Dizziness and giddiness CA echo transthoracic complete Today I71.2 - Thoracic aortic aneurysm, without rupture CA stress test Today R06.00 - Dyspnea, unspecified Coding Level of Care Code Est Pt Level 4 (62416) Complex EM visit Add On G2211 Diagnoses Dyspnea R06.00 Dizziness R42 Thoracic aortic aneurysm I71.2 CAD (coronary artery disease) I25.10 Labile blood pressure R09.89 CPT Codes EKG - CPT: 77531-[id number], Complete ([id number]) Time Spent (min) 34 Comment Time spent in reviewing the chart, test results, assessment, counseling and documentation.
[2024-05-20 13:31] VITALS: BP 124/68; BMI 36.2
[2024-05-20 13:52] VITALS: BP 134/66; PULSE 62
[2024-05-20 13:53] VITALS: BP 129/65; PULSE 67
[2024-05-20 13:55] VITALS: BP 127/69; PULSE 66
--- OUTSIDE RECORDS SUMMARY | 2024-05-20 16:09 | XMS_ITS | Encounter Summary ---
Author Organization [facility], Address [address] [place] [address] Phone Care Team Providers Care Information Technology Instructor Name Role Phone Emely Cid MD Primary Care Provider [phone] Encounter Details Date Type Department Care Team (Late st Contact Info) Description 04/24/2023 Documentation Only [facility], [address] [place] [phone] Gina York [address] [place] [phone] Social History Tobacco Use Types Packs/Day Years Used Date Smoking Tobacco: Former Cigarettes 3 18 0 03/17/1976 - 07/15/1989 Smokeless Tobacco: Never Alcohol Use Standard Drinks/Week Comments Not Currently 4 (1 standard drink = 0.6 oz pur e alcohol) Week Sex and Gender Information Value Date Recorded Sex Assigned at Not on file Legal Sex Male 5:13 PM EST Gender Identity Not on file Sexual Orientation Not on file documented as of this encounter Plan of Treatment Not on file documented as of this encounter Visit Diagnoses Not on filedocumented in this encounter Care Teams Information Technology Instructor Relationship Specialty Start Date End Date Emely Cid MD [address] [place] [phone] PCP - General Family Medicine 09/11/22 documented as of this encounter
--- OUTSIDE RECORDS SUMMARY | 2024-05-20 16:09 | XMS_ITS | Clinical Summary ---
Author Organization [facility], Address [address] [address] Phone Care Team Providers Care Chief Operations Officer Name Role Phone Emely Cid MD Primary Care Provider Allergies Active Allergy Reactions Criticality Noted Date Comments Atorvastatin Other (see comments) 12/06/2020 Bee Venom Anaphylaxis High 12/13/2022 Celecoxib 03/20/2021 Desipramine Medium 12/06/2020 Other reaction(s): Urinary Retention Fluticasone 12/06/2020 Fluticasone-Salmeterol 12/13/2022 Other reaction(s): headaches Gabapentin 12/06/2020 Hydrochlorothiazide 12/06/2020 Melatonin 12/13/2022 Other reaction(s): migraines Meloxicam Hives Medium 12/06/2020 Meperidine GI intolerance 02/10/2018 Morphine GI intolerance 02/10/2018 Nebivolol Other (see comments) Medium 12/06/2020 Nebivolol Hcl 12/13/2022 Other reaction(s): low bp Nortriptyline 12/06/2020 Other reaction(s): extreme diziness Oxycodone-Acetaminophen 12/06/2020 Penicillins Anaphylaxis High 02/10/2018 Other reaction(s): anaphlaxis Topiramate 12/06/2020 Other reaction(s): extreme dizziness Medications acetaminophen-c odeine (TYLENOL with CODEINE #3) 300-30 MG per tablet Take 1 tablet by mouth every 6 (six) hours if needed 12/02/2022 Active allopurinol (ZYLOPRIM) 300 MG tablet Take 300 mg by mouth 1 (one) time each day 11/15/2022 Active aspirin (ST CHAN) 81 MG EC tablet Take 81 mg by mouth in the morning. 05/01/2021 Active busPIRone (BUSPAR) 7.5 MG tablet TAKE 1 TO 2 TABLETS BY MOUTH AT BEDTIME 09/24/2022 Active coenzyme Q-10 200 MG capsule Take 200 mg by mouth in the morning. Active gabapentin (NEURONTIN) 100 MG capsule Take 200 mg by mouth every night 11/29/2022 Active losartan (COZAAR) 25 MG tablet Take 25 mg by mouth 1 (one) time each day 11/07/2022 Active magnesium oxide 400 (240 Mg) MG tablet Take 1 tablet by mouth at bed time 11/29/2022 Active phenazopyridine (PYRIDIUM) 200 MG tablet TAKE 1 TABLET BY MOUTH THREE TIMES DAILY FOR 7 DAYS 12/02/2022 Active rosuvastatin (CRESTOR) 20 MG tablet Take 20 mg by mouth 1 (one) time each day 11/22/2022 Active sertraline (ZOLOFT) 100 MG tablet Take 100 mg by mouth 1 (one) time each day 11/07/2022 Active tamsulosin (Flomax) 0.4 MG 24 hr capsule Take 0.4 mg by mouth 02/28/2017 Active Riboflavin 400 MG capsule Take by mouth Active Active Problems Problem Noted Date Diagnosed Date Nephrolithiasis 12/13/2022 Hypertension 12/13/2022 Immunizations Name Administration Dates Next Due Influenza (IM) Preservative Free 01/15/2015,12/15 Influenza Split Preservative Free ID 12/04/2011 Influenza, Quadrivalent, Preservative Free 12/02,11/01/2016,01/04/2016 Influenza, Quadrivalent, With Preservative 11/16,11/24/2018,10/29/2017 Influenza, Unspecified 12/22/2013 Pfizer SARS-COV-2 07/30/2020,07/09/2020 Shingrix 10/24/2019,05/17/2019 Td 08/23/2020 Tdap 03/21/2010 Family History Medical History Relation Comments Cancer Brother Dementia Father Heart disease Father Hypertension Father Anemia Mother Heart disease Mother Hypertension Mother Autoimmune disease Sister Relation Status Comments Brother Father Mother Sister Social History Tobacco Use Types Packs/Day Years Used Date Smoking Tobacco: Former Cigarettes 3 18 0 03/17/1976 - 07/15/1989 Smokeless Tobacco: Never Tobacco Cessation:Counseling Given: Not Answered Alcohol Use Standard Drinks/Week Comments Not Currently 4 (1 standard drink = 0.6 oz pur e alcohol) Week Sex and Gender Information Value Date Recorded Sex Assigned at Not on file Legal Sex Male 5:13 PM EST Gender Identity Not on file Sexual Orientation Not on file Plan of Treatment Health Maintenance Due Date Last Done Comments Pneumococcal Vaccine: Pediatrics (0 to 5 Years) and At-Risk Patients (6 to 64 Years) (1 of 2 - PCV) 1968 Colorectal Cancer Screening: Annual FOBT 2011 Colorectal Cancer Screening: Colonoscopy 2011 Colorectal Cancer Screening: Sigmoidoscopy 2011 Influenza Vaccine (#1) 2023 0, 11/24/2018, 12/02/2017, Additional history exists Hepatitis B Vaccine Aged Out No longe r eligible based on patient's age to complete this topic Insurance [address] [place] [id number] Care Teams Chief Operations Officer Relationship Specialty Start Date End Date Emely Cid MD [address] [place] [address] PCP - General Family Medicine 09/11/22
--- OUTSIDE RECORDS SUMMARY | 2024-05-20 16:09 | XMS_ITS | Encounter Summary ---
Author Organization [facility], Address [address] [place] [address] Phone Care Team Providers Care Global Climate Change Analyst Name Role Phone Emely Cid MD Primary Care Provider [phone] Encounter Details Date Type Department Care Team (Late st Contact Info) Description 12/13/2022 Documentation Only [facility], [address] [place] [phone] Lis Martinez [address] [place] [phone] Social History Tobacco Use Types Packs/Day Years [...] on filedocumented in this encounter Care Teams Global Climate Change Analyst Relationship Specialty Start Date End Date Emely Cid MD [address] [place] [address] PCP - General Family Medicine 09/11/22 documented as of this encounter
--- OUTSIDE RECORDS SUMMARY | 2024-05-20 16:09 | XMS_ITS | Encounter Summary ---
Author Organization [facility], Address [address] [place] [address] Phone Care Team Providers Care Newspaper Reporter Name Role Phone Emely Cid MD Primary Care Provider [phone] Encounter Details Date Type Department Care Team (Late st Contact Info) Description 09/13/2022 Documentation Only [facility], - [address] [place] [address] Emely Cid MD [address] [place] [phone] Social History Tobacco Use Types Packs/Day Years Used Date Smoking Tobacco: Never Assessed Sex and Gender Information Value Date Recorded Sex Assigned at Not on file Legal Sex Male 5:13 PM EST Gender Identity Not on file Sexual Orientation Not on file documented as of this encounter Plan of Treatment Not on file documented as of this encounter Visit Diagnoses Not on filedocumented in this encounter Care Teams Newspaper Reporter Relationship Specialty Start Date End Date Emely Cid MD [address] [place] [phone] PCP - General Family Medicine 09/11/22 documented as of this encounter
== END 2024-05-20 14:28 | disposition home or self-care (01) ==
PROVIDERS: PCP Family Medicine
DX: R06.00 Dyspnea, unspecified (principal); R42 Dizziness and giddiness; I71.20 Thoracic aortic aneurysm, without rupture, unspecified; I25.10 Atherosclerotic heart disease of native coronary artery without angina pectoris; R09.89 Other specified symptoms and signs involving the circulatory and respiratory systems
CPT/HCPCS: 93010; 99214; G2211

== ENCOUNTER → 2024-05-20 13:20 | Outpatient (BNVA) | payer MEDICARE, MEDICAID, SELFPAY | PROVIDERS: PCP Family Medicine | DX: I10 Essential (primary) hypertension (principal); I25.10 Atherosclerotic heart disease of native coronary artery without angina pectoris; I71.20 Thoracic aortic aneurysm, without rupture, unspecified; E66.9 Obesity, unspecified; R06.00 Dyspnea, unspecified; R42 Dizziness and giddiness; R09.89 Other specified symptoms and signs involving the circulatory and respiratory systems; R00.2 Palpitations; Z68.36 Body mass index [BMI] 36.0-36.9, adult | CPT/HCPCS: 93005; 99212 ==

== ENCOUNTER 2024-06-08 08:15 | Outpatient (AMB) | payer MEDICARE, MEDICAID, SELFPAY ==
--- NOTE | 2024-06-08 08:23 | MHC.OFFVIS ---
Intake Visit Reasons: Botox Allergies duloxetine Allergy (Mild, Verified 02/02/24 07:38) Chest Pain hydrochlorothiazide Allergy (Mild, Verified 02/02/24 07:38) Palpitations morphine [Morphine] Allergy (Mild, Unverified 02/02/24 07:38) NAUSEA & VOMITING TO NARCOTICS, nausea, vomiting melatonin Allergy (Unknown, Verified 02/02/24 07:38) migraines nebivolol [Bystolic] Allergy (Unknown, Verified 02/02/24 07:38) hypotension nortriptyline Allergy (Unknown, Verified 02/02/24 07:38) dizziness oxycodone [Percocet] Allergy (Unknown, Verified 02/02/24 07:38) nausea,vomiting penicillin V Allergy (Unknown, Verified 02/02/24 07:38) hives topiramate Allergy (Unknown, Verified 02/02/24 07:38) dizziness meperidine [From Demerol] Adverse Reaction (Mild, Unverified 02/02/24 07:38) NAUSEA & VOMITING TO NARCOTICS [facility] Medical History Chronic migraine with aura Restless legs syndrome (RLS) Snoring Cerebrovascular accident Anxiety Depression Cognitive dysfunction Sleep disorder GERD (gastroesophageal reflux disease) Chronic headaches Kidney stones Thoracic aortic aneurysm PVCs (premature ventricular contractions) CAD (coronary artery disease) Hyperlipidemia Left-sided carotid artery disease CAD (coronary artery disease) Thoracic aortic aneurysm Surgical History History of lithotripsy S/P right knee surgery H/O elbow surgery S/P left knee surgery Hx of cardiac cath (~2012) Family History Father Dementia Mother Heart disease Brother CVD (cardiovascular disease) Social History Alcohol intake: never Patient Tobacco Use Status: Former Tobacco user Tobacco use type: Cigarette Gender identity: Male Coding
--- NOTE | 2024-06-08 08:24 | MHC.OFFVIS ---
Vital Signs 06/08/24 08:27 Height 5 ft 1 in Weight 193 lb BMI 36.5 Intake Visit Reasons: Botox Intake Note: Patient presents for botox injection Practice supplied Allergies duloxetine Allergy (Mild, Verified 06/08/24 08:27) Chest Pain hydrochlorothiazide Allergy (Mild, Verified 06/08/24 08:27) Palpitations morphine [Morphine] Allergy (Mild, Unverified 06/08/24 08:27) NAUSEA & VOMITING TO NARCOTICS, nausea, vomiting melatonin Allergy (Unknown, Verified 06/08/24 08:27) migraines nebivolol [Bystolic] Allergy (Unknown, Verified 06/08/24 08:27) hypotension nortriptyline Allergy (Unknown, Verified 06/08/24 08:27) dizziness oxycodone [Percocet] Allergy (Unknown, Verified 06/08/24 08:27) nausea,vomiting penicillin V Allergy (Unknown, Verified 06/08/24 08:27) hives topiramate Allergy (Unknown, Verified 06/08/24 08:27) dizziness meperidine [From Demerol] Adverse Reaction (Mild, Unverified 06/08/24 08:27) NAUSEA & VOMITING TO NARCOTICS PFSH Medical History Chronic migraine with aura Restless legs syndrome (RLS) Snoring Cerebrovascular accident Anxiety Depression Cognitive dysfunction Sleep disorder GERD (gastroesophageal reflux disease) Chronic headaches Kidney stones Thoracic aortic aneurysm PVCs (premature ventricular contractions) CAD (coronary artery disease) Hyperlipidemia Left-sided carotid artery disease CAD (coronary artery disease) Thoracic aortic aneurysm Surgical History History of lithotripsy S/P right knee surgery H/O elbow surgery S/P left knee surgery Hx of cardiac cath (~2012) Family History Father Dementia Mother Heart disease Brother CVD (cardiovascular disease) Social History Alcohol intake: never Patient Tobacco Use Status: Former Tobacco user Tobacco use type: Cigarette Gender identity: Male Coding
[2024-06-08 08:27] VITALS: BMI 36.5
--- NOTE | 2024-06-08 08:31 | MHC.OFFVIS ---
Vital Signs 06/08/24 08:27 Height 5 ft 1 in Weight 193 lb BMI 36.5 Intake Visit Reasons: Botox Allergies duloxetine Allergy (Mild, Verified 06/08/24 08:27) Chest Pain hydrochlorothiazide Allergy (Mild, Verified 06/08/24 08:27) Palpitations morphine [Morphine] Allergy (Mild, Unverified 06/08/24 08:27) NAUSEA & VOMITING TO NARCOTICS, nausea, vomiting melatonin Allergy (Unknown, Verified 06/08/24 08:27) migraines nebivolol [Bystolic] Allergy (Unknown, Verified 06/08/24 08:27) hypotension nortriptyline Allergy (Unknown, Verified 06/08/24 08:27) dizziness oxycodone [Percocet] Allergy (Unknown, Verified 06/08/24 08:27) nausea,vomiting penicillin V Allergy (Unknown, Verified 06/08/24 08:27) hives topiramate Allergy (Unknown, Verified 06/08/24 08:27) dizziness meperidine [From Demerol] Adverse Reaction (Mild, Unverified 06/08/24 08:27) NAUSEA & VOMITING TO NARCOTICS Medication List - Last Reconciled 06/08/24 by Mahogany Townsend MD albuterol sulfate 90 mcg/actuation (ProAir HFA) 1 inh inhalation QID allopurinol 300 mg PO DAILY aspirin 81 mg PO DAILY buspirone 7.5 mg PO BID coenzyme Q10 (Co Q-10) 200 mg PO DAILY cyclobenzaprine 5 mg PO BEDTIME epinephrine IM gabapentin 100 mg PO .qhs ketorolac 10 mg PO TID PRN losartan 50 mg PO DAILY magnesium oxide 400 mg PO BEDTIME meclizine 25 mg PO DAILY PRN ondansetron HCl 4 mg PO Q8H riboflavin (vitamin B2) 400 mg PO DAILY rosuvastatin 20 mg PO DAILY sennosides (senna) 8.6 - 17.2 mg PO Q OTHER DAY sertraline 150 mg PO DAILY HPI Comments Details: ??64y/o male comes for treatment of migraines with botox. Most frequent reported adverse reactions following injection of botox for chronic migraine include neck pain (9%), headache(5%), eyelid ptosis(4%), migraine(4%), muscular weakness(4%), musculuskeletal stiffness(4%), bronchitis(3%), injection site pain (3%), musculoskeletal pain(3%), myalgia(3%), facial paresis(2%), HTN(2%) and muscle spasms(2%) were discussed in detail. Migraine days prior to botox- 20 How long do the migraines last-2-3 days Intensity of lgmscejn-4-17 ER visits related to dxwvogwu-8-1 Effectiveness of botox from last two treatment(s)- this is his first treatment Botulinum toxin typeA 200units Lot no [id number] expiration June 2023 was diluted with 4 cc of normal saline . Muscles injected- Frontalis 4 sites Procerus 1 site Piece Dyeing Machine Tender- 2 sites Temporalis- 8 sites Occipitalis- 6 sites Cervical paraspinals- 4 sites Trapezius- 6 sites- 10 units each 5 units each in 31 site Total use- 185units Discarded-15units [facility] Medical History Chronic migraine with aura Restless legs syndrome (RLS) Snoring Cerebrovascular accident Anxiety Depression Cognitive dysfunction Sleep disorder GERD (gastroesophageal reflux disease) Chronic headaches Kidney stones Thoracic aortic aneurysm PVCs (premature ventricular contractions) CAD (coronary artery disease) Hyperlipidemia Left-sided carotid artery disease CAD (coronary artery disease) Thoracic aortic aneurysm Surgical History History of lithotripsy S/P right knee surgery H/O elbow surgery S/P left knee surgery Hx of cardiac cath (~2012) Family History Father Dementia Mother Heart disease Brother CVD (cardiovascular disease) Social History Alcohol intake: never Patient Tobacco Use Status: Former Tobacco user Tobacco use type: Cigarette Gender identity: Male Review of Systems ENT Reports Normal hearing present Neuro Reports Normal hearing present Physical Exam Vital Signs: BMI result Body Mass Index 36.5 Const General: cooperative, comfortable and anxious Nutritional Appearance: obese Orientation/consciousness: patient oriented x3 HEENT Head: Yes normal to inspection, Yes normocephalic and Yes atraumatic Eyes Pupils: Equal, round and reactive pupils present Neuro Other: speech is better General: patient oriented x3 and gait normal Cranial nerves: Yes CN's II-XII intact bilaterally, Yes Facial sensation intact/muscles of mastication intact, Yes Equal, round and reactive pupils present, Yes Bilaterally intact EOM present, Yes Nystagmus not present, Yes Normal facial strength present, Yes Midline tongue present, Yes Symmetric palate elevation present, Yes Normal hearing present and Yes Ability to bilaterally elevate shoulders present Gait exam (Neuro): Normal gait present Motor exam (neuro): 5/5 motor strength present throughout and Normal motor muscle tone present throughout Psych Affect: Anxious affect present and Depressed mood present Office Procedures Botulinum toxin Injection 11951 - Migraine Procedure code (CPT) selection complete Office Meds onabotulinumtoxinA 200 unit solution for injection Performing Provider: Mahogany Townsend MD Performing Location: [facility] Administered by: Mahogany Townsend MD on 06/08/24 08:46 Dose Route Admin Location Dispensed Lot Number Expiration Date [facility] Crew Trainer 200 unit subcut 200 units [id number] 06/15/26 6927-2781-83 ALLERGAN/BOTOX Comments: see HPI Assessment & Plan Assessment & Plan (1) Chronic migraine with aura: Code(s): G43.E09 - Chronic migraine with aura, not intractable, without status migrainosus Category: Medical Qualifiers: Status migrainosus presence: without status migrainosus Intractability: intractable Qualified Code(s): G43.E19 - Chronic migraine with aura, intractable, without status migrainosus Plan Patinet tolerated the procedure well He will call with any side effects Orders: Orders AMB Botulinum toxin Injection Today G43.E19 - Chronic migraine with aura, intractable, without status migrainosus Medications: New onabotulinumtoxinA 200 units subcut ONCE 1 ea 0RF Migraine G43.E19 - Chronic migraine with aura, intractable, without status migrainosus Coding Level of Care Code Est Pt Level 1 (19340) Diagnoses Intractable chronic migraine with aura and without status migrainosus G43.E19 Status migrainosus presence: without status migrainosus Intractability: intractable CPT Codes Botox Injection - Botox 3: 00565 - Migraine ([id number])
== END 2024-06-08 08:45 | disposition home or self-care (01) ==
LOC: HO.HSMS 08:16
PROVIDERS: PCP Family Medicine; Visit Provider Psychiatry & Neurology Neurology
DX: G43.E19 Chronic migraine with aura, intractable, without status migrainosus (principal)
CPT/HCPCS: 64615

== ENCOUNTER → 2024-06-08 08:15 | Outpatient (BNVA) | payer MEDICARE, MEDICAID, SELFPAY | PROVIDERS: PCP Family Medicine; Visit Provider Psychiatry & Neurology Neurology | DX: G43.E19 Chronic migraine with aura, intractable, without status migrainosus (principal) | CPT/HCPCS: 64615; 99211; J0585 ==

== ENCOUNTER → 2024-06-17 07:46 | Outpatient (REF) | payer MEDICARE, MEDICAID, SELFPAY ==
--- NOTE | 2024-06-17 07:48 | CA_ITS ---
Transthoracic Echocardiogram Patient (Last, First, Middle): Tj Guajardo L Gender: Male Date of : 1960 Age: 64 Procedure Date: 06/17/2024 Procedure Type: Transthoracic Echocardiogram Location: OP Height: 154.94 cm Weight: 87.54 kg BSA: 1.86 m2 Heart Rate: 65 bpm BP: 127 / 68 mmHg Mixed Crop Farmer: SB/RC Referring MD: Jose Juan Lake NP Symptoms: I71.2 - Thoracic aortic aneurysm, without rupture Study Quality: Fair ECG Rhythm: Sinus Conclusions: - The left ventricular systolic function is normal. The calculated ejection fraction is 62% by biplane method. - No obvious valvular pathology seen on this study. - There is mild dilatation of the ascending aorta measuring 4.10 cm. Findings Procedure Information The quality of the study was technically difficult. The study quality is limited by lung artifact. Left Ventricle Normal left ventricular cavity size. The left ventricular systolic function is normal. The calculated ejection fraction is 62% by biplane method. There is no evidence of regional wall motion abnormalities. Diastolic function is normal for age. There is mild septal asymmetric hypertrophy. Right Ventricle Normal right ventricular cavity size and systolic function. Atria Both atria are normal in size. Aortic Valve There is a normal trileaflet aortic valve. There is no aortic valve stenosis. There is no aortic valve regurgitation. Mitral Valve The mitral valve appears normal. There is no mitral valve regurgitation. There is no mitral valve stenosis. Pulmonic Valve The pulmonic valve is likely normal. Tricuspid Valve Normal tricuspid valve structure. There is no tricuspid valve regurgitation. Tricuspid regurgitation envelope is inadequate for calculation of right ventricular systolic pressure. Great Vessels The aortic arch is normal in size. There is mild dilatation of the ascending aorta measuring 4.10 cm. Venous The inferior vena cava is normal in size and collapses less than 50% with inspiration. Pericardium/Pleural There is no evidence of pericardial effusion. Prior Study Comparison No significant change compared to prior study dated: 02/24/2023. Recommendations, Care & Conclusions No obvious valvular pathology seen on this study. Measurements 2D Linear Measurements IVSd: 1.03 0.6-0.9/0.6-1.0 cm LVIDd: 4.05 3.9-5.3/4.2-5.9 cm LVIDd Index: 2.18 2.4-3.2/2.2-3.1 cm/m2 LVIDs: 2.60 2.0-3.6 cm LVPWd: 0.76 0.7-1.1 cm LA Diam: 3.10 2.7-3.8/3.0-4.0 cm LAIDs Index: 1.67 1.5-2.3 cm/m2 LV Mass: 137.95 67-162/88-224 g LV Mass Index: 74.17 43-95/49-115 g/m2 LVOT Diam: 1.90 3.0+(-)1.3 cm 2D Systolic Function EF 4C: 56.90 >55% EF 2C: 63.60 >55% EF BiP: 61.60 >55% Mitral Valve MV Pk E: 0.73 MV PK A: 0.81 MV Decel Time: 235.00 E/A: 0.90 E'Lateral: 9.36 E'Medial: 6.20 E/E' Med: 11.80 E/E' Lat: 7.80 PHT: 69.00 MVA PHT: 3.19 Decel Peach: 3.12 Aortic Valve AoV Pk Allan: 1.26 AoV Pk Grad: 6.00 CASSIE: 2.77 LVOT LVOT Pk Allan: 1.18 LVOT Mn Allan: 0.84 LVOT VTI: 0.25 LVOT Pk Grad: 6.00 LVOT Mn Grad: 3.00 LVOT Diam: 1.90 LVOT Area: 2.84 Diastolic Function MV Pk E: 0.73 MV Pk A: 0.81 E/A: 0.90 E'Medial: 6.20 E/E' Med: 11.80 E' Laterial: 9.36 E/E' Lat: 7.80 Right Ventricle TAPSE (mm): 18.50 TVS' Allan: 12.00 Tricuspid Valve RA Press: 3.00 Great Vessels Aorta Sinus of Valsalva: 3.20 2.0-3.5 cm Ao Asc: 4.10 2.1-3.4 cm Ao Arch: 3.40 Pulmonary Valve PV Pk Allan: 0.77 Peak PV Grad: 2.00 Updated in Other Vendor System with Status of Final Lalo Oneill MD electronically signed on 06/19/2024 10:25:37 AM with status of Final
--- OUTSIDE RECORDS SUMMARY | 2024-06-17 07:48 | XMS_ITS | Clinical Summary ---
Author Organization [facility], Address [address] [address] Phone Care Team Providers Care On Air Personality Name Role Phone Emely Cid MD Primary [...] age to complete this topic Insurance Unit [address] [place] [id number] Care Teams On Air Personality Relationship Specialty Start Date End Date Emely Cid MD [address] [place] [address] PCP - General Family Medicine 09/11/22
--- OUTSIDE RECORDS SUMMARY | 2024-06-17 07:48 | XMS_ITS | Encounter Summary ---
Author Organization [facility] [place], Address [address] [place] [address] Phone Care Team Providers Care Towel Sewer Name Role Phone Emely Cid MD Primary Care Provider [phone] Encounter Details Date Type Department Care Team (Late st Contact Info) Description 09/13/2022 Documentation Only [facility], - [address] [place] [address] Emely Cid MD [address] [place] [phone] Social History Tobacco Use Types Packs/Day Years [...] on filedocumented in this encounter Care Teams Towel Sewer Relationship Specialty Start Date End Date Emely Cid MD [address] [place] [phone] PCP - General Family Medicine 09/11/22 documented as of this encounter
--- OUTSIDE RECORDS SUMMARY | 2024-06-17 07:48 | XMS_ITS | Encounter Summary ---
Author Organization [facility], Address [address] [place] [address] Phone Care Team Providers Care Director Search Name Role Phone Emely Cid MD Primary Care Provider Encounter Details Date Type Department Care Team (Late st Contact Info) Description 04/24/2023 Documentation Only [facility], [address] [place] [phone] Gina York [address] [place] [phone] Social History Tobacco Use Types Packs/Day Years [...] on filedocumented in this encounter Care Teams Director Search Relationship Specialty Start Date End Date Emely Cid MD [address] [place] [phone] PCP - General Family Medicine 09/11/22 documented as of this encounter
== END ==
LOC: HO.CARD 07:46
PROVIDERS: PCP Family Medicine
DX: I71.20 Thoracic aortic aneurysm, without rupture, unspecified (principal); R00.2 Palpitations; R06.00 Dyspnea, unspecified
CPT/HCPCS: 93242; 93306

== ENCOUNTER → 2024-06-17 07:48 | Outpatient (BNV) | payer MEDICARE, MEDICAID, SELFPAY | PROVIDERS: PCP Family Medicine; Visit Provider Internal Medicine | DX: I36.1 Nonrheumatic tricuspid (valve) insufficiency (principal) | CPT/HCPCS: 93306 ==

== ENCOUNTER 2024-09-07 07:51 | Outpatient (AMB) | payer MEDICARE, MEDICAID, SELFPAY ==
--- OUTSIDE RECORDS SUMMARY | 2024-09-07 07:54 | XMS_ITS | Encounter Summary ---
Author Organization [facility] [place], Address [address] [place] [address] Phone Care Team Providers Care Junior Manufacturing Engineer Name Role Phone Emely Cid MD Primary Care Provider Encounter Details Date Type Department Care Team (Late st Contact Info) Description 12/13/2022 Documentation Only [facility], [address] [place] [phone] Lis Martinez [address] [place] [phone] Social History Tobacco Use Types Packs/Day Years [...] on filedocumented in this encounter Care Teams Junior Manufacturing Engineer Relationship Specialty Start Date End Date Emely Cid MD [address] [place] [address] PCP - General Family Medicine 09/11/22 documented as of this encounter
--- NOTE | 2024-09-07 07:55 | MHC.OFFVIS ---
Vital Signs 09/07/24 08:34 Height 5 ft 1 in BP 124/82 Blood Pressure Location Rt brachial Position Sitting Pulse 62 Pulse Source Pulse Oximeter Pulse Oximetry (%) 96 Oxygen Delivery Method Room Air Intake Visit Reasons: Botox Intake Note: Patient presents for botox injection. pharmacy supplied Allergies duloxetine Allergy (Mild, Verified 09/07/24 08:35) Chest Pain hydrochlorothiazide Allergy (Mild, Verified 09/07/24 08:35) Palpitations morphine (Morphine) Allergy (Mild, Unverified 09/07/24 08:35) NAUSEA & VOMITING TO NARCOTICS, nausea, vomiting melatonin Allergy (Unknown, Verified 09/07/24 08:35) migraines nebivolol (Bystolic) Allergy (Unknown, Verified 09/07/24 08:35) hypotension nortriptyline Allergy (Unknown, Verified 09/07/24 08:35) dizziness oxycodone (Percocet) Allergy (Unknown, Verified 09/07/24 08:35) nausea,vomiting penicillin V Allergy (Unknown, Verified 09/07/24 08:35) hives topiramate Allergy (Unknown, Verified 09/07/24 08:35) dizziness meperidine (From Demerol) Adverse Reaction (Mild, Unverified 09/07/24 08:35) NAUSEA & VOMITING TO NARCOTICS Medication List - Last Reconciled 09/07/24 by Mahogany Townsend MD albuterol sulfate 90 mcg/actuation (ProAir HFA) 1 inh inhalation QID allopurinol 300 mg PO DAILY aspirin 81 mg PO DAILY buspirone 7.5 mg PO BID coenzyme Q10 (Co Q-10) 200 mg PO DAILY cyclobenzaprine 5 mg PO BEDTIME epinephrine IM gabapentin 100 mg PO .qhs ketorolac 10 mg PO TID PRN losartan 50 mg PO BID magnesium oxide 400 mg PO BEDTIME meclizine 25 mg PO DAILY PRN ondansetron HCl 4 mg PO Q8H riboflavin (vitamin B2) 400 mg PO DAILY rosuvastatin 20 mg PO DAILY sennosides (senna) 8.6 - 17.2 mg PO Q OTHER DAY sertraline 150 mg PO DAILY HPI Comments Details: ??64y/o male comes for treatment of migraines with botox. Most frequent reported adverse reactions following injection of botox for chronic migraine include neck pain (9%), headache(5%), eyelid ptosis(4%), migraine(4%), muscular weakness(4%), musculuskeletal stiffness(4%), bronchitis(3%), injection site pain (3%), musculoskeletal pain(3%), myalgia(3%), facial paresis(2%), HTN(2%) and muscle spasms(2%) were discussed in detail. Migraine days prior to botox- 20 How long do the migraines last-2-3 days Intensity of zcfdwbko-2-89 ER visits related to suwsxddw-5-2 Effectiveness of botox from last two treatment(s)- this is his first treatment Botulinum toxin typeA 200units Lot no [id number] expiration June 2023 was diluted with 4 cc of normal saline . Muscles injected- Frontalis 4 sites Procerus 1 site Grocery Carrier- 2 sites Temporalis- 8 sites Occipitalis- 6 sites Cervical paraspinals- 4 sites Trapezius- 6 sites- 10 units each 5 units each in 31 site Total use- 185units Discarded-15units [facility] Medical History Chronic migraine with aura Restless legs syndrome (RLS) Snoring Cerebrovascular accident Anxiety Depression Cognitive dysfunction Sleep disorder GERD (gastroesophageal reflux disease) Chronic headaches Kidney stones Thoracic aortic aneurysm PVCs (premature ventricular contractions) CAD (coronary artery disease) Hyperlipidemia Left-sided carotid artery disease CAD (coronary artery disease) Thoracic aortic aneurysm Surgical History History of lithotripsy S/P right knee surgery H/O elbow surgery S/P left knee surgery Hx of cardiac cath (~2012) Family History Father Dementia Mother Heart disease Brother CVD (cardiovascular disease) Social History Alcohol intake: never Patient Tobacco Use Status: Former Tobacco user Tobacco use type: Cigarette Gender identity: Male Review of Systems ENT Reports Normal hearing present Neuro Reports Normal hearing present Physical Exam Vital Signs: Last Vital Signs Pulse 62 09/07/24 08:34 BP 124/82 09/07/24 08:34 Pulse Ox 96 09/07/24 08:34 Oxygen Delivery Method Room Air 09/07/24 08:34 Const General: cooperative, comfortable and anxious Nutritional Appearance: obese Orientation/consciousness: patient oriented x3 HEENT Head: Yes normal to inspection, Yes normocephalic and Yes atraumatic Eyes Pupils: Equal, round and reactive pupils present Neuro Other: speech is better General: patient oriented x3 and gait normal Cranial nerves: Yes CN's II-XII intact bilaterally, Yes Facial sensation intact/muscles of mastication intact, Yes Equal, round and reactive pupils present, Yes Bilaterally intact EOM present, Yes Nystagmus not present, Yes Normal facial strength present, Yes Midline tongue present, Yes Symmetric palate elevation present, Yes Normal hearing present and Yes Ability to bilaterally elevate shoulders present Gait exam (Neuro): Normal gait present Motor exam (neuro): 5/5 motor strength present throughout and Normal motor muscle tone present throughout Psych Affect: Anxious affect present and Depressed mood present Office Procedures Botulinum toxin Injection 49349 - Migraine Procedure code (CPT) selection complete Office Meds onabotulinumtoxinA 200 unit solution for injection Performing Provider: Mahogany Townsend MD Performing Location: [facility] Administered by: Mahogany Townsend MD on 09/07/24 09:59 Dose Route Admin Location Dispensed Lot Number Expiration Date [facility] Logistics Clerk 185 unit subcut 200 units [id number] ALLERGAN/BOTOX Total Dispensed Waste 200 units 7.5 % Assessment & Plan Assessment & Plan (1) Chronic migraine with aura: Code(s): G43.E09 - Chronic migraine with aura, not intractable, without status migrainosus Category: Medical Qualifiers: Status migrainosus presence: without status migrainosus Intractability: intractable Qualified Code(s): G43.E19 - Chronic migraine with aura, intractable, without status migrainosus Plan Patinet tolerated the procedure well He will call with any side effects Orders: Orders AMB Botulinum toxin Injection Today G43.E19 - Chronic migraine with aura, intractable, without status migrainosus Coding Level of Care Code Est Pt Level 1 (30199) Diagnoses Intractable chronic migraine with aura and without status migrainosus G43.E19 Status migrainosus presence: without status migrainosus Intractability: intractable CPT Codes Botox Injection - Botox 3: 93486 - Migraine ([id number])
[2024-09-07 08:34] VITALS: BP 124/82; PULSE 62; O2SAT 96
== END 2024-09-07 08:51 | disposition home or self-care (01) ==
LOC: HO.HSMS 07:51
PROVIDERS: PCP Family Medicine; Visit Provider Psychiatry & Neurology Neurology
DX: G43.E19 Chronic migraine with aura, intractable, without status migrainosus (principal)
CPT/HCPCS: 64615

== ENCOUNTER → 2024-09-07 07:51 | Outpatient (BNVA) | payer MEDICARE, MEDICAID, SELFPAY | PROVIDERS: PCP Family Medicine; Visit Provider Psychiatry & Neurology Neurology | DX: G43.E19 Chronic migraine with aura, intractable, without status migrainosus (principal) | CPT/HCPCS: 64615; 99211; J0585 ==

== ENCOUNTER → 2024-09-28 07:39 | Outpatient (REF) | payer MEDICARE, MEDICAID, SELFPAY ==
--- OUTSIDE RECORDS SUMMARY | 2024-09-28 07:41 | XMS_ITS | Encounter Summary ---
Author Organization [facility] [place], Address [address] [place] [address] Phone Care Team Providers Care Manager Rn Name Role Phone Emely Cid MD Primary Care Provider Encounter Details Date Type Department Care Team (Late st Contact Info) Description 12/13/2022 Documentation Only [facility], [address] [place] [phone] Lis Martinez [address] [place] [phone] Social History Tobacco Use Types Packs/Day Years [...] on filedocumented in this encounter Care Teams Manager Rn Relationship Specialty Start Date End Date Emely Cid MD [address] [place] [address] PCP - General Family Medicine 09/11/22 documented as of this encounter
--- NOTE | 2024-09-28 07:42 | CA_ITS ---
Acquisition Time: 2024-09-28 08:02:41 Total Exercise Time: 00:06:24 Test Indications: Dyspnea,Dizzy Spells Medications: SEE H&P Protocol: KIERSTEN Max HR: 112 BPM 70% of Pred: 158 BPM Max BP: 128/74 mmHG Max Work Load: 7.4 METS Exercise stress test with exercise 6 mins 24 secs of Kiersten Protocol, achieving 65% MPHR, with rports of SOB and fatigue, no chest pain, with isolated PVCs, with normotensive response to exercise. Nondiagnostic EKG for ischemia due to suboptimal HR. In recovery, pt feeling back to baseline. Will order pharmacological stress test. Test reviewed with Dr. Oneill. Referred By: Jose Juan Lake Electronically Signed By: Jose Juan Lake
== END ==
LOC: HO.CARD 07:39
PROVIDERS: PCP Family Medicine
DX: R06.00 Dyspnea, unspecified (principal)
CPT/HCPCS: 93017

== ENCOUNTER → 2024-09-28 07:42 | Outpatient (BNV) | payer MEDICARE, MEDICAID, SELFPAY | PROVIDERS: PCP Family Medicine | DX: R06.02 Shortness of breath (principal); I49.3 Ventricular premature depolarization | CPT/HCPCS: 93016; 93018 ==

== ENCOUNTER → 2024-10-07 08:45 | Outpatient (REF) | payer MEDICARE, MEDICAID, SELFPAY ==
--- NOTE | ~2024-10-07 | NM_ITS ---
Lexiscan Myocardial perfusion study Indication: Abnormal stress test evaluate for myocardial ischemia Technique: The patient was brought in for a Lexiscan perfusion study on 10/07/2024 and was injected 0.4 mg of Lexiscan intravenously. Within a minute of this injection 30 mCi of sestamibi was given intravenously. Images were obtained using the SPECT gamma camera interlaced with the gating device. Images were obtained in supine position. Resting perfusion study was performed on 10/08/2024. Patient was administered 30 mCi of sestamibi intravenously at rest. Images were then obtained in supine position. Images obtained without without CT attenuation. Total DLP 112 mGy-cm Images were processed with the software and compared side to side in short axis, horizontal long axis and vertical long axis views. Findings: The stress perfusion study showed nonattenuated images show mildly reduced uptake in the basal and mid inferolateral as well as basal and mid inferior wall of the LV myocardium. Remainder of the LV myocardium is normally perfused. Attenuated corrected images show mildly reduced uptake in the apex of the LV myocardium.. The gated study shows normal LV systolic function with calculated LVEF of 53%. LV cavity is normal in size. The gated study shows normal systolic wall thickening and contraction of segments. Resting study shows no change in perfusion pattern compared to stress perfusion study. Gating at rest reveals normal systolic wall motion with ejection fraction at 57%. The findings are consistent with known reversible defect suggestive of ischemia. Likely normal myocardial perfusion. NM/NM cardiolite stress test Impression: 1. Myocardial perfusion imaging study shows likely normal myocardial perfusion 2. Gated LVEF is 57% 3. Transient ischemic dilatation not present Nondiagnostic changes on EKG. Electronically signed by: Maikel Barone MD 10/08/2024 01:50 PM EDT
--- NOTE | 2024-10-07 08:49 | CA_ITS ---
Acquisition Time: 2024-10-07 09:07:10 Total Exercise Time: 00:02:00 Test Indications: CAD PVC'S Medications: SEE H&P Protocol: LEXISCAN Max HR: 104 BPM 65% of Pred: 158 BPM Max BP: 122/68 mmHG Max Work Load: 1.6 METS Pharmacological stress test with Lexiscan while pt walked slow on treadmill, with reports of SOB and lightheadedness, without any arrythmias, with normotensive repsonse to injection. Nondiagnostic EKG for ischemia. In recovery, pt feeling back to baseline. Nuclear images pending. Test reviewed with Dr. Chaney. Referred By: Jose Juan Lake Electronically Signed By: Jose Juan Lake
--- OUTSIDE RECORDS SUMMARY | 2024-10-07 09:10 | XMS_ITS | Encounter Summary ---
Author Organization [facility], Address [address] [place] [address] Phone Care Team Providers Care Care Professionals Name Role Phone Emely Cid MD Primary Care Provider Encounter Details Date Type Department Care Team (Late st Contact Info) Description 12/13/2022 Documentation Only [facility], [address] [place] [phone] Lis Martinez [address] [place] [phone] Social History Tobacco Use Types Packs/Day Years [...] on filedocumented in this encounter Care Teams Care Professionals Relationship Specialty Start Date End Date Emely Cid MD [address] [place] [address] PCP - General Family Medicine 09/11/22 documented as of this encounter
--- OUTSIDE RECORDS SUMMARY | 2024-10-07 09:11 | XMS_ITS | Encounter Summary ---
Author Organization [facility] Address [address] [place] [address] [place] [address] Phone Care Team Providers Care Labor Supervisor Name Role Phone Emely Cid MD Unavailable Bravo Coulter MD, [place] Unavailable Melissa Mendez MD Unavailable [phone] Conrado De Luna MD Unavailable [phone] Manpreet Cali CAUSTIC STRENGTH INSPECTOR Unavailable Derek Webster MD Unavailable [phone] Emely Cid MD Primary Care Provider [phone] Emely Cid MD Primary Care Provider Reason for Referral * MRI/CAT Scan - Closed Specialty Diagnoses / Procedures Referred By Zeeshan rick Referred To Contact Radiology Diagnoses Kidney stone Pre-op exam Unspecified renal colic Generalized abdominal pain Procedures CT Abdomen/Pelvis CT Abdomen/Pelvis Rosalia Mcclelland MD Phone: tel: fax: [email or web address] Referral ID Status Reason Start Date Expiration Date Visits Re quested Visits Authorized [id number] Closed 04/14/2019 06/13/2019 1 1 Encounter Details Date Type Department Care Team (Late st Contact Info) Description 04/14/2019 Ancillary Orders Virtual Department [address] [place] [address] Rosalia Mcclelland MD [address] [place] [address], [address] [place] [phone] [email or web address] Kidney stone; Pre-op exam; Unspecified renal colic; Generalized abdominal pain Social History Tobacco Use Types Packs/Day Years Used Date Smoking Tobacco: Unknown Smokeless Tobacco: Never Alcohol Use Standard Drinks/Week Comments No 0 (1 standard drink = 0.6 oz pur e alcohol) Sex and Gender Information Value Date Recorded Sex Assigned at Male 02/10/2018 9:05 AM EST Legal Sex Male 5:54 PM EST Gender Identity Male 02/10/2018 9:05 AM EST Sexual Orientation Straight 02/10/2018 9: 05 AM EST documented as of this encounter Plan of Treatment Not on file documented as of this encounter Results * CT ABDOMEN/PELVIS WITHOUT CONTRAST (04/15/2019 8:53 AM EST) Anatomical Region Laterality Modality Abdomen, Pelvis Computed Tomogra phy 04/15/2019 9:42 AM EST Impressions 04/15/2019 9:50 AM EST Right nephrolithiasis as above. No ureteral calculi. TOTAL CTDIvol: 7.8 mGy POS - [id number] Narrative 04/15/2019 9:50 AM EST HISTORY: Nephrolithiasis. Renal colic COMPARISON: Radiographs November 18, 2018. CT abdomen and pelvis October 29, 2017 TECHNIQUE: Unenhanced CT obtained from above the kidneys through the inferior pubic rami. Sagittal and coronal reformats generated. Automated exposure control utilized. FINDINGS: Unenhanced imaging has diminished sensitivity for inflammatory or neoplastic processes. Costophrenic angles: No findings of concern. Liver and spleen: No findings of concern in the included portions. Biliary tree and pancreas: Status post cholecystectomy. No worrisome biliary dilatation. No pancreatic finding of concern. Adrenals and : No adrenal masses. No renal masses for unenhanced technique. The upper pole the right kidney there is a very faint calcification consistent with early stone. Towards the interpolar region is a 4 x 5 mm non-obstructing stone in the lower pole is a 1 mm stone, at 3 mm stone and a 2 mm stone. No definite stones are seen on the left. No ureteral stones. No bladder stone. Prostate does not appear prominently enlarged. Visualized testicle is unremarkable. Bowel: A few scattered diverticula. Note is for colitis or diverticulitis. No gross small bowel pathology identified. Nodes: No adenopathy detected for technique. Vascular: Some regional atherosclerotic changes of the aorta and iliacs but no dominant aneurysm or iliac aneurysm is seen. Soft tissues: No findings of concern. Bones: Minor SI joint degenerative change. Slight disc height loss L3-4. No compression deformity or bony destructive lesions identified. Fairly prominent impingement change noted anteriorly at the proximal right femur. Procedure Note Aysha Marshall MD - 04/15/2019 HISTORY: Nephrolithiasis. Renal colic COMPARISON: Radiographs November 18, 2018. CT abdomen and pelvis 2017 TECHNIQUE: Unenhanced CT obtained from above the kidneys through theinferior pubic rami. Sagittal and coronal reformats generated. Automatedexposure control utilized. FINDINGS: Unenhanced imaging has diminished sensitivity for inflammatory orneoplastic processes. Costophrenic angles: No findings of concern. Liver and spleen: No findings of concern in the included portions. Biliary tree and pancreas: Status post cholecystectomy. No worrisomebiliary dilatation. No pancreatic finding of concern. Adrenals and : No adrenal masses. No renal masses for unenhancedtechnique. The upper pole the right kidney there is a very faintcalcification consistent with early stone. Towards the interpolar regionis a 4 x 5 mm non-obstructing stone in the lower pole is a 1 mm stone, at3 mm stone and a 2 mm stone. No definite stones are seen on the left. Noureteral stones. No bladder stone. Prostate does not appear prominentlyenlarged. Visualized testicle is unremarkable. Bowel: A few scattered diverticula. Note is for colitis or diverticulitis.No gross small bowel pathology identified. Nodes: No adenopathy detected for technique. Vascular: Some regional atherosclerotic changes of the aorta and iliacsbut no dominant aneurysm or iliac aneurysm is seen. Soft tissues: No findings of concern. Bones: Minor SI joint degenerative change. Slight disc height loss L3-4.No compression deformity or bony destructive lesions identified. Fairlyprominent impingement change noted anteriorly at the proximal rightfemur. IMPRESSION: Right nephrolithiasis as above. No ureteral calculi. TOTAL CTDIvol: 7.8 mGy POS - [id number] Rosalia Mcclelland MD IMG CT ABD/PELVIS Final Result documented in this encounter Visit Diagnoses Diagnosis Kidney stone Calculus of kidney Pre-op exam Unspecified renal colic Generalized abdominal pain Abdominal pain, generalized Kidney stone Calculus of kidney Pre-op exam Unspecified renal colic Generalized abdominal pain Abdominal pain, generalized documented in this encounter Care Teams Labor Supervisor Relationship Specialty Start Date End Date Emely Cid MD PCP - General 01/21/17 02/25/23 Emely Cid MD [address] [place] [phone] [email or web address] [email or web address] - General Family Medicine 02/26/23 Emely Cid MD Historical LMR Provider 01/02/17 Bravo Coulter MD, [place] [address] [place] [address] Historical LMR Provider 01/02/17 03/24/21 Melissa Mendez MD [address] [place] [address] Historical LMR Provider 01/02/17 Conrado De Luna MD [address] [facility], [address] [place] [address] Historical LMR Provider 01/02/17 03/24/21 Manpreet Cali CAUSTIC STRENGTH INSPECTOR [address] [facility], 2nd [place] [address] Historical LMR Provider 01/02/17 03/24/21 Derek Webster MD [address] [place] [address] [email or web address] Historical LMR Provider 01/02/17 03/24/21 documented as of this encounter Additional Source Comments The information contained in this document represents components of the legal health record. It is not the complete legal health record.[facility]
== END ==
LOC: HO.CARD 08:45
PROVIDERS: PCP Family Medicine
DX: R94.39 Abnormal result of other cardiovascular function study (principal); I25.10 Atherosclerotic heart disease of native coronary artery without angina pectoris
CPT/HCPCS: 78452; 93017; A9500; J0280; J2785

== ENCOUNTER → 2024-10-07 08:49 | Outpatient (BNV) | payer MEDICARE, MEDICAID, SELFPAY | PROVIDERS: PCP Family Medicine | DX: R06.02 Shortness of breath (principal); R42 Dizziness and giddiness | CPT/HCPCS: 78452; 93016; 93018 ==

== ENCOUNTER 2024-10-21 14:36 | Outpatient (AMB) | payer MEDICARE, MEDICAID, SELFPAY ==
--- OUTSIDE RECORDS SUMMARY | 2024-10-21 14:39 | XMS_ITS | Encounter Summary ---
Author Organization [facility], Address [address] [place] [address] Phone Care Team Providers Care Brazing Machine Operator Name Role Phone Emely Cid MD Primary Care Provider [phone] Encounter Details Date Type Department Care Team (Late st Contact Info) Description 12/13/2022 Documentation Only [facility], [address] [place] [phone] Lis Martinez [address] [place] [phone] Social History Tobacco Use Types Packs/Day Years [...] on filedocumented in this encounter Care Teams Brazing Machine Operator Relationship Specialty Start Date End Date Emely Cid MD [address] [place] [address] PCP - General Family Medicine 09/11/22 documented as of this encounter
--- OUTSIDE RECORDS SUMMARY | 2024-10-21 14:39 | XMS_ITS | Encounter Summary ---
Author Organization [facility] Address [address] [place] [address] [place] [address] Phone Care Team Providers Care Joint Terminal Attack Controller Name Role Phone Emely Cid MD Unavailable Bravo Coulter MD, [place] Unavailable Melissa Mendez MD Unavailable [phone] Conrado De Luna MD Unavailable [phone] Manpreet Cali CYLINDER PRESS OPERATOR Unavailable Derek Webster MD Unavailable [phone] Emely Cid MD Primary Care Provider [phone] Emely Cid MD Primary Care Provider [phone] Reason for Referral * MRI/CAT Scan - Closed Specialty Diagnoses / Procedures Referred By Zeeshan rick Referred To Contact Radiology Diagnoses Kidney stone Pre-op exam Unspecified renal colic Generalized abdominal pain Procedures CT Abdomen/Pelvis CT Abdomen/Pelvis Rosalia Mcclelland MD Phone: tel: fax: [email or web address] Referral ID Status Reason Start Date Expiration Date Visits Re quested Visits Authorized [id number] Closed 04/14/2019 06/13/2019 1 1 Encounter Details Date Type Department Care Team (Late st Contact Info) Description 04/14/2019 Ancillary Orders Virtual Department [address] [place] [address] Rosalia Mcclelland MD [address] [place] [address], [address] [place] [phone] [email or web address] Kidney stone; Pre-op exam; Unspecified [...] generalized documented in this encounter Care Teams Joint Terminal Attack Controller Relationship Specialty Start Date End Date Emely Cid MD PCP - General 01/21/17 02/25/23 Emely Cid MD [address] [place] [phone] [email or web address] PCP - General Family Medicine 02/26/23 Emely Cid MD Historical LMR Provider 01/02/17 Bravo Coulter MD, MS [address] [place] [address] Historical LMR Provider 01/02/17 03/24/21 Melissa Mendez MD [address] [place] [address] Historical LMR Provider 01/02/17 Conrado De Luna MD [address] [facility], [address] [place] [address] [email or web address] Historical LMR Provider 01/02/17 03/24/21 Manpreet Cali CYLINDER PRESS OPERATOR [address] [facility], 2nd [place] [address] [email or web address] Historical LMR Provider 01/02/17 03/24/21 Derek Webster MD [address] [place] [address] [email or web address] Historical LMR Provider 01/02/17 03/24/21 documented as of this encounter Additional Source Comments The information contained in this document represents components of the legal health record. It is not the complete legal health record.[facility]
--- NOTE | 2024-10-21 15:30 | MHC.OFFVIS ---
Vital Signs 10/21/24 15:32 Height 5 ft 1 in Weight 189 lb 9.561 oz BMI 35.8 BP 110/60 Blood Pressure Location Rt brachial Position Sitting Pulse 60 Pulse Source Pulse Oximeter Intake Visit Reasons: f/up after testing Intake Note: f/dd-zwutdaw-amht, stress Digital Artist Required: No Accompanied by: Spouse Allergies duloxetine Allergy (Mild, Verified 09/07/24 08:35) Chest Pain hydrochlorothiazide Allergy (Mild, Verified 09/07/24 08:35) Palpitations morphine (Morphine) Allergy (Mild, Unverified 09/07/24 08:35) NAUSEA & VOMITING TO NARCOTICS, nausea, vomiting melatonin Allergy (Unknown, Verified 09/07/24 08:35) migraines nebivolol (Bystolic) Allergy (Unknown, Verified 09/07/24 08:35) hypotension nortriptyline Allergy (Unknown, Verified 09/07/24 08:35) dizziness oxycodone (Percocet) Allergy (Unknown, Verified 09/07/24 08:35) nausea,vomiting penicillin V Allergy (Unknown, Verified 09/07/24 08:35) hives topiramate Allergy (Unknown, Verified 09/07/24 08:35) dizziness meperidine (From Demerol) Adverse Reaction (Mild, Unverified 09/07/24 08:35) NAUSEA & VOMITING TO NARCOTICS Medication List - Last Reconciled 10/21/24 by Jose uJan Lake NP albuterol sulfate 90 mcg/actuation (ProAir HFA) 1 inh inhalation QID allopurinol 300 mg PO DAILY aspirin 81 mg PO DAILY buspirone 7.5 mg PO BID coenzyme Q10 (Co Q-10) 200 mg PO DAILY cyclobenzaprine 5 mg PO BEDTIME epinephrine IM gabapentin 100 mg PO .qhs 90 days MDD 100mg ketorolac 10 mg PO TID PRN losartan 50 mg PO BID magnesium oxide 400 mg PO BEDTIME meclizine 25 mg PO DAILY PRN ondansetron HCl 4 mg PO Q8H riboflavin (vitamin B2) 400 mg PO DAILY rosuvastatin 20 mg PO DAILY sennosides (senna) 8.6 - 17.2 mg PO Q OTHER DAY sertraline 150 mg PO DAILY HPI Comments Details: This is a 64-year-old male patient coming in for a follow-up visit, accompanied by his . Patient with a history of hypertension, nonobstructive coronary artery disease, and aortic aneurysm. Patient was previously seen in the office where he has been reporting some shortness of breath, palpitations, and feeling fatigued following which patient underwent a stress test, echo study, and a Holter study. Today, patient is here to review the results for it. Patient continues to report ongoing exertional shortness of breath, dizziness, and feeling fatigued. Patient states that he feels frustrated because he is usually very active and is able to do more than he is able to now. Patient states that now due to the fatigue when he gets the symptoms he usually has to sit down or rest. Patient is denying any orthopnea, PND, leg edema, presyncope, or syncope. Patient is reporting compliance with all his medications. [facility] Medical History Chronic migraine with aura Restless legs syndrome (RLS) Snoring Cerebrovascular accident Anxiety Depression Cognitive dysfunction Sleep disorder GERD (gastroesophageal reflux disease) Chronic headaches Kidney stones Thoracic aortic aneurysm PVCs (premature ventricular contractions) CAD (coronary artery disease) Hyperlipidemia Left-sided carotid artery disease CAD (coronary artery disease) Thoracic aortic aneurysm Surgical History History of lithotripsy S/P right knee surgery H/O elbow surgery S/P left knee surgery Hx of cardiac cath (~2012) Family History Father Dementia Mother Heart disease Brother CVD (cardiovascular disease) Social History Alcohol intake: never Patient Tobacco Use Status: Former Tobacco user Tobacco use type: Cigarette Gender identity: Male Review of Systems Const Denies chills, Denies fatigue, Denies fever(s), Denies frequent falls, Denies weakness, Denies weight gain and Denies weight loss ENT Denies dizziness Card Denies chest pain, Denies leg edema, Denies lightheadedness, Denies palpitations, Denies dyspnea and Denies dyspnea on exertion Resp Denies cough, Denies dyspnea and Denies dyspnea on exertion GI Denies hematochezia Musc Denies abnormal gait, Denies muscle weakness, Denies numbness, Denies radiating pain into limb and Denies tingling Neuro Denies abnormal gait, Denies dizziness, Denies frequent falls, Denies numbness, Denies tingling and Denies weakness Endo Denies fatigue and Denies palpitations Physical Exam Vital Signs: Last Vital Signs Pulse 60 10/21/24 15:32 BP 110/60 10/21/24 15:32 BMI result Body Mass Index 35.8 Const General: cooperative, healthy appearing, comfortable and no acute distress Orientation/consciousness: patient oriented x3 HEENT Head: Yes normal to inspection Neck Neck: Yes normal visual inspection, Yes trachea midline and Yes supple Chest Chest palpation & inspection: normal inspection of the chest Resp Effort & Inspection: normal respiratory effort Auscultation: clear to auscultation bilaterally, no crackles, no rales, no rhonchi and no wheezes Cardio Jugular venous distension: no JVD Palpation: normal PMI Rate: regular rate Rhythm: regular rhythm Heart sounds: S1 normal heart sound present, S2 normal heart sound present, no click, no gallops, no murmurs and no rubs Peripheral pulses: Peripheral pulses 2+ throughout GI Inspection: Yes normal to inspection Palpation (GI): Soft to palpation Auscultation: normal bowel sounds Skin General skin exam: no rashes or lesions noted Neuro General: patient oriented x3 Extrem General: Yes normal to inspection, No no pedal edema and No calf tenderness Psych Appearance: grossly normal Mental Status: mental status grossly normal Speech and movement: Normal speech and movement present Assessment & Plan Assessment & Plan (1) Dyspnea: Code(s): R06.00 - Dyspnea, unspecified Category: Medical (2) Dizziness: Code(s): R42 - Dizziness and giddiness Category: Medical (3) CAD (coronary artery disease): Code(s): I25.10 - Atherosclerotic heart disease of [place] coronary artery without angina pectoris Category: Medical (4) Thoracic aortic aneurysm: Code(s): I71.2 - Thoracic aortic aneurysm, without rupture Category: Medical (5) Labile blood pressure: Code(s): R09.89 - Other specified symptoms and signs involving the circulatory and respiratory systems Category: Medical Plan Patient had undergone a cardiac catheterization back in 2018 that showed nonobstructive coronary artery disease. 06/17/2024-echo study showed a normal LV systolic function with the ejection fraction at 62%, with mild dilation of the ascending aorta measuring at 4.10 cm. 06/17/2024-patient underwent Holter study that showed a baseline normal sinus rhythm with an average heart rate of 63 beats per minute. Patient's reported symptoms of shortness of breath, dizziness, and palpitations correlated with a sinus rhythm. 10/07/2024-patient underwent myocardial perfusion study that showed normal perfusion. Given ongoing symptoms and multiple risk factors, we will proceed with a coronary CTA to assess the extent of coronary artery disease and ischemic changes. We will monitor the aortic aneurysm periodically. Blood pressure today is well-controlled. Patient brings a log of blood pressures from home and systolic pressure stable ranging between 110s - 120s. Continue current regimen without any changes medications. Most recent LDL within goal. Continue statin therapy with an LDL goal less than 70. Advised heart healthy diet, regular exercise as tolerated, med compliance, and aggressive management of vascular risk factors. Follow up after completion of the coronary CTA. The interim, patient will call the office with any concerns or change in symptoms. Advised to seek ER care in case of exertional chest pain not resolved with rest. This note was generated using voice recognition software. While every effort has been made to ensure accuracy and proper photoengraving etcher, there may be occasional errors that could affect the content or meaning of the described symptoms. Orders: Orders Basic Metabolic Panel Today I25.10 - Atherosclerotic heart disease of [place] coronary artery without angina pectoris CT Cardiac Coronary Angio Today I25.10 - Atherosclerotic heart disease of [place] coronary artery without angina pectoris Coding Level of Care Code Est Pt Level 4 (10485) Complex EM visit Add On G2211 Diagnoses Dyspnea R06.00 Dizziness R42 CAD (coronary artery disease) I25.10 Thoracic aortic aneurysm I71.2 Labile blood pressure R09.89 Time Spent (min) 32 Comment Time spent in reviewing the chart, test results, assessment, counseling and documentation.
[2024-10-21 15:32] VITALS: BP 110/60; PULSE 60; BMI 35.8
== END 2024-10-21 16:07 | disposition home or self-care (01) ==
LOC: HO.HCS 14:37
PROVIDERS: PCP Family Medicine
DX: R06.00 Dyspnea, unspecified (principal); R42 Dizziness and giddiness; I25.10 Atherosclerotic heart disease of native coronary artery without angina pectoris; I71.20 Thoracic aortic aneurysm, without rupture, unspecified; R09.89 Other specified symptoms and signs involving the circulatory and respiratory systems
CPT/HCPCS: 99214; G2211

== ENCOUNTER → 2024-10-21 14:36 | Outpatient (BNVA) | payer MEDICARE, MEDICAID, SELFPAY | PROVIDERS: PCP Family Medicine | DX: I25.10 Atherosclerotic heart disease of native coronary artery without angina pectoris (principal); I71.20 Thoracic aortic aneurysm, without rupture, unspecified; R06.00 Dyspnea, unspecified; R42 Dizziness and giddiness; R09.89 Other specified symptoms and signs involving the circulatory and respiratory systems | CPT/HCPCS: 99212 ==

== ENCOUNTER 2024-10-28 11:14 | Outpatient (REF) | payer MEDICARE, MEDICAID, SELFPAY ==
[2024-10-28 12:17] LABS: Anion Gap 11 (12-20); Blood Urea Nitrogen 15 mg/dL (9-16); Calcium 9.2 mg/dL (8.4-10.2); Carbon Dioxide 27 mmol/L (22-29); Chloride 108 mmol/L (96-108); Estimated Glomerular Filt Rate > 60; Potassium 4.3 mmol/L (3.3-5.1); Sodium 142 mmol/L (135-145)
--- OUTSIDE RECORDS SUMMARY | 2024-10-28 12:22 | XMS_ITS | Encounter Summary ---
Author Organization [facility] Address [address] [place] [address] [place] [address] Phone Care Team Providers Care Molded Rubber Goods Cutter Name Role Phone Emely Cid MD Unavailable Bravo Coulter MD, [place] Unavailable Melissa Mendez MD Unavailable Conrado De Luna MD Unavailable [phone] Manpreet Cali DINING ROOM COORDINATOR Unavailable Derek Webster MD Unavailable [phone] Emely Cid MD Primary Care Provider [phone] Emely Cid MD Primary Care Provider Reason for Referral * MRI/CAT Scan - Closed Specialty Diagnoses / Procedures Referred By Zeeshan rick Referred To Contact Radiology Diagnoses Kidney stone Pre-op exam Unspecified renal colic Generalized abdominal pain Procedures CT Abdomen/Pelvis CT Abdomen/Pelvis Rosalia Mcclelland MD Phone: tel: fax: [email or web address] Referral ID Status Reason Start Date Expiration Date Visits Re quested Visits Authorized [id number] Closed 04/14/2019 06/13/2019 1 1 Encounter Details Date Type Department Care Team (Late st Contact Info) Description 04/14/2019 Ancillary Orders Virtual Department [address] [place] [address] Rosalia Mcclelland MD [address] [place] [address], [address] [place] [address] [email or web address] Kidney stone; Pre-op exam; Unspecified [...] generalized documented in this encounter Care Teams Molded Rubber Goods Cutter Relationship Specialty Start Date End Date Emely Cid MD PCP - General 01/21/17 02/25/23 Emely Cid MD [address] [place] [phone] [email or web address] PCP - General Family Medicine 02/26/23 Emely Cid MD Historical LMR Provider 01/02/17 Bravo Coulter MD, MS [address] [place] [address] Historical LMR Provider 01/02/17 03/24/21 Melissa Mendez MD [address] [place] [address] Historical LMR Provider 01/02/17 Conrado De Luna MD [address] [facility], [address] [place] [address] [email or web address] Historical LMR Provider 01/02/17 03/24/21 Manpreet Cali DINING ROOM COORDINATOR 15 [facility], 2nd [place] [address] [email or web address] Historical LMR Provider 01/02/17 03/24/21 Derek Webster MD [address] [place] [address] [email or web address] Historical LMR Provider 01/02/17 03/24/21 documented as of this encounter Additional Source Comments The information contained in this document represents components of the legal health record. It is not the complete legal health record.[facility]
--- OUTSIDE RECORDS SUMMARY | 2024-10-28 12:22 | XMS_ITS | Encounter Summary ---
Author Organization [facility], Address [address] [place] [address] Phone Care Team Providers Care Finish Opener Name Role Phone Emely Cid MD Primary Care Provider Encounter Details Date Type Department Care Team (Late st Contact Info) Description 12/13/2022 Documentation Only [facility], [address] [place] [phone] Lis Martinez [address] [place] [phone] Social History Tobacco Use Types Packs/Day Years [...] on filedocumented in this encounter Care Teams Finish Opener Relationship Specialty Start Date End Date Emely Cid MD [address] [place] [address] PCP - General Family Medicine 09/11/22 documented as of this encounter
== END 2024-10-28 11:15 | disposition home or self-care (01) ==
LOC: HO.LAB 11:14
PROVIDERS: PCP Family Medicine
DX: I25.10 Atherosclerotic heart disease of native coronary artery without angina pectoris (principal)
CPT/HCPCS: 36415; 80048

== ENCOUNTER 2024-12-08 10:57 | Outpatient (REF) | payer MEDICARE, MEDICAID, SELFPAY ==
[2024-12-08 13:03] LABS: Anion Gap 11 (12-20); Blood Urea Nitrogen 17 mg/dL (9-16); Calcium 9.2 mg/dL (8.4-10.2); Carbon Dioxide 24 mmol/L (22-29); Chloride 110 mmol/L (96-108); Estimated Glomerular Filt Rate > 60; Potassium 3.8 mmol/L (3.3-5.1); Sodium 141 mmol/L (135-145)
--- OUTSIDE RECORDS SUMMARY | 2024-12-08 14:10 | XMS_ITS | Encounter Summary ---
Author Organization [facility] Address [address] [place] [address] [place] [address] Phone Care Team Providers Care Risk Control Officer Name Role Phone Emely Cid MD Unavailable Bravo Coulter MD, [place] Unavailable Melissa Mendez MD Unavailable Conrado De Luna MD Unavailable [phone] Manpreet Cali PRINCIPAL SOFTWARE ENGINEER Unavailable [phone] Derek Webster MD Unavailable [phone] Emely Cid MD Primary Care Provider [phone] Emely Cid MD Primary Care Provider Reason for Referral * MRI/CAT Scan - Closed Specialty Diagnoses / Procedures Referred By Zeeshan rick Referred To Contact Radiology Diagnoses Kidney stone Pre-op exam Unspecified renal colic Generalized abdominal pain Procedures CT Abdomen/Pelvis CT Abdomen/Pelvis Rosalia Mcclelland MD Phone: tel: fax: [email or web address] Referral ID Status Reason Start Date Expiration Date Visits Re quested Visits Authorized [id number] Closed 04/14/2019 06/13/2019 1 1 Encounter Details Date Type Department Care Team (Late st Contact Info) Description 04/14/2019 Ancillary Orders Virtual Department [address] [place] [address] Rosalia Mcclelland MD [address] [place] [address], [address] [place] [address] [email or web address] Kidney stone; Pre-op exam; Unspecified [...] generalized documented in this encounter Care Teams Risk Control Officer Relationship Specialty Start Date End Date Emely Cid MD PCP - General 01/21/17 02/25/23 Emely Cid MD [address] [place] [phone] [email or web address] PCP - General Family Medicine 02/26/23 Emely Cid MD Historical LMR Provider 01/02/17 Bravo Coulter MD, MS [address] [place] [address] Historical LMR Provider 01/02/17 03/24/21 Melissa Mendez MD [address] [place] [address] Historical LMR Provider 01/02/17 Conrado De Luna MD [address] [facility], [address] [place] [address] [email or web address] Historical LMR Provider 01/02/17 03/24/21 Manpreet Cali PRINCIPAL SOFTWARE ENGINEER [address] [facility], 2nd [place] [address] [email or web address] Historical LMR Provider 01/02/17 03/24/21 Derek Webster MD [address] [place] [address] [email or web address] Historical LMR Provider 01/02/17 03/24/21 documented as of this encounter Additional Source Comments The information contained in this document represents components of the legal health record. It is not the complete legal health record.[facility]
--- OUTSIDE RECORDS SUMMARY | 2024-12-08 14:10 | XMS_ITS | Encounter Summary ---
Author Organization [facility] Address [address] [place] [address] [place] [address] Phone Care Team Providers Care Skills Instructor Name Role Phone Emely Cid MD Unavailable [phone] Bravo Coulter MD, [place] Unavailable [phone] Melissa Mendez MD Unavailable [phone] Conrado De Luna MD Unavailable [phone] Manpreet Cali CNP Unavailable Derek Webstre MD Unavailable [phone] Emely Cid MD Primary Care Provider [phone] Emely Cid MD Primary Care Provider [phone] Encounter Details Date Type Department Care Team (Late st Contact Info) Description 09/15/2018 Transcribe Orders Virtual Department [address] [place] [address] Rosalia Mcclelland MD [address] [facility], [address] [place] [address] [email or web address] Calculus of kidney (Primary Dx); Cyst of kidney, acquired Social History Tobacco Use Types Packs/Day Years [...] documented as of this encounter Results * XR ABDOMEN 1 VIEW (11/18/2018 8:32 AM EDT) Anatomical Region Laterality Modality Abdomen Radiographic Francisca ging 11/18/2018 8:49 AM EDT Impressions 11/18/2018 8:54 AM EDT Limited evaluation of the right renal fossa due to superimposed stool. No radiopaque urinary tract calculi identified. POS - [id number] Narrative 11/18/2018 8:54 AM EDT HISTORY: As above. COMPARISON: CT abdomen pelvis 10/29/2017. ABDOMEN RADIOGRAPH FINDINGS: Two supine views obtained. Image heart is normal. Lung bases are clear. Stable mild left hemidiaphragm elevation. Right upper quadrant cholecystectomy clips. Moderate right colonic stool volume. No bowel distention. Mild lower thoracic spine multilevel disc space narrowing and bilateral iliac crest enthesopathy. Stool obscures the right renal fossa. No radiopaque urinary tract calculi. Procedure Note Len Grande MD - 11/18/2018 HISTORY: As above. COMPARISON: CT abdomen pelvis 10/29/2017. ABDOMEN RADIOGRAPH FINDINGS: Two supine views obtained. Image heart is normal. Lung bases are clear.Stable mild left hemidiaphragm elevation. Right upper quadrantcholecystectomy clips. Moderate right colonic stool volume. No boweldistention. Mild lower thoracic spine multilevel disc space narrowing andbilateral iliac crest enthesopathy. Stool obscures the right renal fossa.No radiopaque urinary tract calculi. IMPRESSION: Limited evaluation of the right renal fossa due to superimposed stool. Noradiopaque urinary tract calculi identified. POS - [id number] Rosalia Mcclelland MD IMG XR ABDOMEN Final Re sult * US Kidneys and Bladder (11/18/2018 8:28 AM EDT) Anatomical Region Laterality Modality Abdomen, Kidney Ultrasound 11/18/2018 8:38 AM EDT Impressions 11/18/2018 9:25 AM EDT Nephrolithiasis bilaterally. Peripheral calcification near the upper pole right renal cyst is probably a small focus of nephrolithiasis rather than calcification associated with the cyst based on prior imaging. This otherwise has no suspicious features. Small pre-void volume with 20 cc or 14% post-void residual. POS [id number] Edited by: Jessy Wheeler on 11/18/2018 9:07 AM Narrative 11/18/2018 9:25 AM EDT COMPARISON: 10/01/2017. CAT abdomen and pelvis 10/29/2017 and MRI abdomen 02/11/2018. FINDINGS: Kidneys: Right kidney measured at 12.2 cm in length and left 11.8 cm. Right renal cyst is again noted, now measuring up to 1.3 cm. A tiny stone is seen at its periphery. Based on the prior CT appearance this is quite likely an incidental adjacent small stone rather than associated calcification within the cyst based on the prior CT and MR appearance. There is a second stone in the lower pole of the right kidney measuring up to 7 mm sonographically, and over estimation. No masses seen on the left. There is a small interpolar focus which may reflect a 2 mm focus of early nephrolithiasis, without prior CT correlate. There is no hydronephrosis. No perinephric fluid collection or renal cortical echogenicity finding of concern. Bladder: Pre-void volume is small at 150 cc. There is a 20 cc or 14% post-void residual. No bladder stone or mass is identified. Ureteral jets are documented bilaterally. Procedure Note Aysha Marshall MD - 11/18/2018 COMPARISON: 10/01/2017. CAT abdomen and pelvis 10/29/2017 and MRI [id number]/2018. FINDINGS: Kidneys: Right kidney measured at 12.2 cm in length and left 11.8 cm.Right renal cyst is again noted, now measuring up to 1.3 cm. A tiny stoneis seen at its periphery. Based on the prior CT appearance this is quitelikely an incidental adjacent small stone rather than associatedcalcification within the cyst based on the prior CT and MR appearance.There is a second stone in the lower pole of the right kidney measuring upto 7 mm sonographically, and over estimation. No masses seen on the left.There is a small interpolar focus which may reflect a 2 mm focus of earlynephrolithiasis, without prior CT correlate. There is no hydronephrosis.No perinephric fluid collection or renal cortical echogenicity finding ofconcern. Bladder: Pre-void volume is small at 150 cc. There is a 20 cc or 14%post-void residual. No bladder stone or mass is identified. Ureteral jetsare documented bilaterally. IMPRESSION: Nephrolithiasis bilaterally. Peripheral calcification near the upper poleright renal cyst is probably a small focus of nephrolithiasis rather thancalcification associated with the cyst based on prior imaging. Thisotherwise has no suspicious features. Small pre-void volume with 20 cc or14% post-void residual. POS [id number] Edited by: Jessy Wheeler on 11/18/2018 9:07 AM Rosalia Mcclelland MD [facility] Final Re sult documented in this encounter Visit Diagnoses Diagnosis Calculus of kidney- Primary Cyst of kidney, acquired Acquired cyst of kidney Calculus of kidney Cyst of kidney, acquired Acquired cyst of kidney Calculus of kidney Cyst of kidney, acquired Acquired cyst of kidney documented in this encounter Care Teams Skills Instructor Relationship Specialty Start Date End Date Emely Cid MD [email or web address] PCP - General 01/21/17 02/25/23 Emely Cid MD [address] [place] [address] [email or web address] PCP - General Family Medicine 02/26/23 Emely Cid MD Historical LMR Provider 01/02/17 Bravo Coulter MD, MS [address] [place] [address] [email or web address] Historical LMR Provider 01/02/17 03/24/21 Melissa Mendez MD [address] [place] [address] [email or web address] Historical LMR Provider 01/02/17 Conrado De Luna MD [address] [facility], [address] [address] [email or web address] Historical LMR Provider 01/02/17 03/24/21 Manpreet Cali, CLIENT DELIVERY SPECIALIST [address] [place] [address] Historical LMR Provider 01/02/17 03/24/21 Derek Webster MD [address] [place] [address] [email or web address] Historical LMR Provider 01/02/17 03/24/21 documented as of this encounter Additional Source Comments The information contained in this document represents components of the legal health record. It is not the complete legal health record.[facility]
--- OUTSIDE RECORDS SUMMARY | 2024-12-08 14:10 | XMS_ITS | Encounter Summary ---
Author Organization [facility], Address [address] [place] [address] Phone Care Team Providers Care Tool Coordinator Name Role Phone Emely Cid MD Primary Care Provider Encounter Details Date Type Department Care Team (Late st Contact Info) Description 12/13/2022 Documentation Only [facility], [address] [place] [phone] Lis Martinez [address] [place] [phone] Social History Tobacco Use Types Packs/Day Years [...] on filedocumented in this encounter Care Teams Tool Coordinator Relationship Specialty Start Date End Date Emely Cid MD [address] [place] [address] PCP - General Family Medicine 09/11/22 documented as of this encounter
--- OUTSIDE RECORDS SUMMARY | 2024-12-08 14:10 | XMS_ITS | Encounter Summary ---
Author Organization [facility] Address [address] [facility] [address] [place] [address] Phone Care Team Providers Care Student Records Specialist Name Role Phone Emely Cid MD Unavailable [phone] Emely Cid MD Primary Care Provider [phone] Encounter Details Date Type Department Care Team (Latest Contact Info) Description 05/27/2024 Transcribe Orders [facility] [address] [address] Patricia Contreras, ROXANA [address] [place] [address] Constipation, unspecified constipation type (Primary Dx) Social History Tobacco Use Types Packs/Day Years Used Date Smoking Tobacco: Former Smokeless Tobacco: Never Alcohol Use Standard Drinks/Week Comments No 0 (1 standard drink = 0.6 oz pur e alcohol) Education Answer Date Recorded Are you interested in more education? Not on rosa e 07/13/2022 Are you concerned about learning? Not on file 07/13/2022 No 07/13/2022 No 07/13/2022 Digital Access Answer Date Recorded No 08/10/2022 No 08/10/2022 Reliable internet access at home? Not on file 08/10/2022 Device with a working camera? Not on file Intimate Partner Violence Answer Date R ecorded Are you denied basic needs s uch as food, clothing, or medical care? No 04/17/2024 In the past 12 months have y ou been in a relationship with a person who hurts, threatens, or tries to control you? No 04/17/2024 Are you denied basic needs s uch as food, clothing, or medical care? No 04/17/2024 In the past 12 months have y ou been in a relationship with a person who hurts, threatens, or tries to control you? No 04/17/2024 Sex and Gender Information Value Date Recorded Sex Assigned at Male 02/10/2018 9:05 AM EST Legal Sex Male 5:54 PM EST Gender Identity Male 02/10/2018 9:05 AM EST Sexual Orientation Straight 02/10/2018 9: 05 AM EST documented as of this encounter Plan of Treatment Not on file documented as of this encounter Results * Calprotectin, stool (06/15/2024 10:30 AM EDT) STOOL CALPROTECTIN 60 mcg/g [facility]/Kassy NOEL [facility] Comment: (NOTE) Reference Range: <50 Normal 50-120 Borderline >120 Elevated Calprotectin in Crohn's disease and ulcerative colitis can be five to several thousand times above the reference population (50 mcg/g or less). Levels are usually 50 mcg/g or less in healthy patients and with irritable bowel syndrome. Repeat testing in 4-6 weeks is suggested for borderline values. Stool (Stool) 06/15/2024 10: 30 AM EDT 06/15/2024 11:06 AM EDT us Patricia Contreras NP BODY FLUIDS AND STOOLS ORDERABLES Final Result LEATHA WILCOX/JOVANNY [facility] [id number] [place] [address], [facility] [phone] * C-Reactive Protein (05/27/2024 3:31 PM EDT) C REACTIVE PROTEIN <3.0 0.0 - 4.0 mg/L [facility] Blood 05/27/2024 3:31 PM EDT 05/27/2024 3:41 PM EDT us Patricia Contreras TIME ANALYSIS CLERK LAB BLOOD ORDER MIRTHA Final Result [address] [address] * (ABNORMAL) Comprehensive metabolic panel (05/27/2024 3:31 PM EDT) SODIUM 142 133 - 146 mmol/L [facility] POTASSIUM 4.2 3.3 - 5.1 mmol/L [facility] CHLORIDE 106 96 - 108 mmol/L [facility] CO2 26 21 - 35 mmol/L [facility] BUN 15 6 - 19 mg/dL [facility] CREATININE 0.80 0.5 - 1.5 mg/dL [facility] GLUCOSE 86 70 - 99 mg/dL [facility] ALBUMIN 4.5 3.9 - 4.8 g/dL [facility] TOTAL PROTEIN 6.9 6.5 - 8.0 g/dL [facility] CALCIUM 9.7 8.4 - 10.3 mg/dL [facility] ALKALINE PHOSPHATASE 121(H) 39 - 117 U/L [facility] TOTAL BILIRUBIN 0.5 0.0 - 1.2 mg/dL [facility] AST 25 0 - 37 U/L [facility] ALT 29 0 - 40 U/L [facility] GLOBULIN 2.4 1 - 4.8 g/dL [facility] EGFR 100 >59 mL/min/1.7 3m2 [facility] Comment:Estimated glomerular filtration rate calculated using the CKD-EPI refit equation. ANION GAP 14 10 - 20 mmol/L [facility] Blood 05/27/2024 3:31 PM EDT 05/27/2024 3:41 PM EDT us Patricia Contreras NP LAB BLOOD ORDER MIRTHA Final Result Performing Organization Address City/[facility]/ZIP Co de Phone Number [address] [address] * (ABNORMAL) CBC (05/27/2024 3:31 PM EDT) WBC 9.66 4.00 - 11.00 K/uL [facility] RBC 4.78 4.50 - 5.90 M/uL [facility] HGB 15.2 13.5 - 17.5 g/dL [facility] HCT 43.7 41.0 - 53.0 % [facility] PLT 219 150 - 450 K/uL [facility] MCV 91.4 80.0 - 100.0 fL [facility] MCH 31.8(H) 27.0 - 31.0 pg [facility] MCHC 34.8 32.0 - 36.0 g/dL [facility] RDW 13.1 11.5 - 14.5 % [facility] MPV 9.5 8.4 - 12.0 fL [facility] NRBC 0.00 0.00 /100 WBCs [facility] ABSOLUTE NRBC 0.00 0.00 K/uL [facility] Blood 05/27/2024 3:31 PM EDT 05/27/2024 3:41 PM EDT Patricia Contreras TIME ANALYSIS CLERK LAB BLOOD ORDER MIRTHA Final Result Performing Organization Address [facility] Co de Phone Number [address] [address] * Immunoglobulin A (05/27/2024 3:31 PM EDT) IgA 88 70 - 400 mg/dL [facility] Blood 05/27/2024 3:31 PM EDT 05/27/2024 3:41 PM EDT Patricia Carrollg TIME ANALYSIS CLERK LAB BLOOD ORDER MIRTHA Final Result Performing Organization Address [facility]/ZIP Co de Phone Number [address] [address] * Tissue transglutaminase IgA (05/27/2024 3:31 PM EDT) TTG IGA ANTIBODY <1.2 <4.0 (Negative) U/mL [facility] Blood 05/27/2024 3:31 PM EDT 05/27/2024 3:41 PM EDT us Patricia Contreras TIME ANALYSIS CLERK LAB BLOOD ORDER MIRTHA Final Result [facility] [address] [place] [address] documented in this encounter Visit Diagnoses Diagnosis Constipation, unspecified constipation type- Primary documented in this encounter Care Teams Student Records Specialist Relationship Specialty Start Date End Date Emely Cid MD [address] [place] [phone] [email or web address] PCP - General Family Medicine 02/26/23 Emely Cid MD Historical LMR Provider 01/02/17 documented as of this encounter Additional Source Comments The information contained in this document represents components of the legal health record. It is not the complete legal health record.[facility]
--- OUTSIDE RECORDS SUMMARY | 2024-12-08 14:10 | XMS_ITS | Encounter Summary ---
Author Organization [facility] Address [address] [place] [address] Phone Care Team Providers Care Spar Machine Operator Helper Name Role Phone Emely Cid MD Unavailable [phone] Emely Cid MD Primary Care Provider Emely Cid MD Primary Care Provider Encounter Details Date Type Department Care Team (Latest Contact Info) Description 09/20/2022 Transcribe Orders Virtual Department [address] [place] [address] Angelica Lin CNP [address] [place] [address], [address] [address] [email or web address] Calculus of ureter (Primary Dx) Social History Tobacco Use Types [...] with a working camera? Not on file Sex and Gender Information Value Date Recorded Sex Assigned at Male 02/10/2018 9:05 AM EST Legal Sex Male 5:54 PM EST Gender Identity Male 02/10/2018 9:05 AM EST Sexual Orientation Straight 02/10/2018 9: 05 AM EST documented as of this encounter Plan of Treatment Not on file documented as of this encounter Visit Diagnoses Diagnosis Calculus of ureter- Primary documented in this encounter Care Teams Spar Machine Operator Helper Relationship Specialty Start Date End Date Emely Cid MD PCP - General 01/21/17 02/25/23 Emely Cid MD [address] [place] [address] [email or web address] PCP - General Family Medicine 02/26/23 Emely Cid MD Historical LMR Provider 01/02/17 documented as of this encounter Additional Source Comments The information contained in this document represents components of the legal health record. It is not the complete legal health record.[facility]
--- OUTSIDE RECORDS SUMMARY | 2024-12-08 14:10 | XMS_ITS | Encounter Summary ---
Author Organization [facility] Address [address] [place] [address] [place] [address] Phone Care Team Providers Care Ed Teacher Name Role Phone Emely Cid MD Unavailable [phone] Bravo Coulter MD, [place] Unavailable Melissa Mendez MD Unavailable [phone] Conrado De Luna MD Unavailable [phone] Manpreet Cali CNP Unavailable [phone] Derek Webster MD Unavailable [phone] Emely Cid MD Primary Care Provider Emely Cid MD Primary Care Provider Encounter Details Date Type Department Care Team (Late st Contact Info) Description 04/14/2019 Ancillary Orders Virtual Department [address] [place] [address] Rosalia Mcclelland MD [facility], [address] [place], [place] [phone] [email or web address] Kidney stone; Pre-op exam Social History Tobacco Use Types Packs/Day Years [...] as of this encounter Visit Diagnoses Diagnosis Kidney stone Calculus of kidney Pre-op exam documented in this encounter Care Teams Ed Teacher Relationship Specialty Start Date End Date Emely Cid MD [email or web address] PCP - General 01/21/17 02/25/23 Emely Cid MD [address] [place] [phone] [email or web address] PCP - General Family Medicine 02/26/23 Emely Cid MD [email or web address] Historical LMR Provider 01/02/17 Bravo Coulter MD, MS [address] [place] [address] [email or web address] Historical LMR Provider 01/02/17 03/24/21 Melissa Mendez MD [address] [place] [address] Historical LMR Provider 01/02/17 Conrado De Luna MD [address] [place] [address], [facility] [address] [place] [address] Historical LMR Provider 01/02/17 03/24/21 Manpreet Cali CNP [address] [facility] [place] [address] [email or web address] Historical LMR Provider 01/02/17 03/24/21 Derek Webster MD [address] [address] [email or web address] Historical LMR Provider 01/02/17 03/24/21 documented as of this encounter Additional Source Comments The information contained in this document represents components of the legal health record. It is not the complete legal health record.[facility]
--- OUTSIDE RECORDS SUMMARY | 2024-12-08 14:10 | XMS_ITS | Encounter Summary ---
Author Organization [facility] Address [address] [place] [address] Phone Care Team Providers Care Senior Physician Name Role Phone Emely Cid MD Unavailable [phone] Emely Cid MD Primary Care Provider [phone] Encounter Details Date Type Department Care Team (Late st Contact Info) Description 04/17/2024 Procedure Pass [facility], Ct Scan - [address] [address] Social History Tobacco Use Types Packs/Day Years [...] AM EST documented as of this encounter Functional Status * Calculated C-SSRS Risk Score (Lifetime/Recent) Answer Date of Assessment Author No Risk Indicated 04/17/2024 11:41 AM Britta Jones RN * [place] Suicide Severity Rating Scale (Screener/Recent Self-Report) Question Answer Date of Assessment Author 1. Wish to be (Past 1 Month) No 025 11:41 AM Britta Nicole, RN 2. Non-Specific Active Suici shawn Thoughts (Past 1 Month) No 04/17/2024 11:41 AM Claudine Nicole RN 6. Suicidal Behavior (Lifetime) No 11:41 AM Britta Nicole RN documented as of this encounter Plan of Treatment Not on file documented as of this encounter Visit Diagnoses Not on filedocumented in this encounter Care Teams Senior Physician Relationship Specialty Start Date End Date Emely Cid MD [address] [place] [phone] [email or web address] PCP - General Family Medicine 02/26/23 Emely Cid MD [email or web address] Historical LMR Provider 01/02/17 documented as of this encounter Additional Source Comments The information contained in this document represents components of the legal health record. It is not the complete legal health record.[facility]
--- OUTSIDE RECORDS SUMMARY | 2024-12-08 14:10 | XMS_ITS | Encounter Summary ---
Author Organization [facility] Address [address] [place] [address] [place] [address] Phone Care Team Providers Care Planning Coordinator Name Role Phone Emely Cid MD Unavailable Bravo Coulter MD, [place] Unavailable Melissa Mendez MD Unavailable Conrado De Luna MD Unavailable [phone] Manpreet Cali CNP Unavailable [phone] Derek Webster MD Unavailable [phone] Emely Cid MD Primary Care Provider Emely Cid MD Primary Care Provider [phone] Encounter Details Date Type Department Care Team (Latest Contact Info) Description 09/04/2020 Ancillary Orders Virtual Department [address] [place] [address] Kendell Cid PA [address] [place] [address] [email or web address] Cervical radiculopathy; Lumbar radiculopathy Social History Tobacco Use Types Packs/Day Years [...] as of this encounter Results * XR LUMBOSACRAL SPINE 4 OR MORE VIEWS (09/25/2020 2:51 PM EDT) Anatomical Region Laterality Modality L-spine Computed Radiogr aphy 09/25/2020 3:28 PM EDT Impressions 09/25/2020 3:31 PM EDT Stable mild L3-4 disc disease and L5-S1 facet arthropathy. Narrative 09/25/2020 3:31 PM EDT HISTORY: As above. COMPARISON: CT abdomen pelvis 04/15/2019. LUMBAR SPINE RADIOGRAPH FINDINGS: 5 images obtained. No acute fracture or malalignment. Multilevel endplate spurring and mild L3-4 disc space narrowing. Mild L5-S1 facet arthropathy. No spondylolysis or compression fractures. No destructive or suspicious bone lesions. Mild aortic atherosclerosis. Right upper quadrant cholecystectomy clips. Procedure Note Severo Dennis MD - 09/25/2020 HISTORY: As above. COMPARISON: CT abdomen pelvis 04/15/2019. LUMBAR SPINE RADIOGRAPH FINDINGS: 5 images obtained. No acute fracture or malalignment. Multilevel endplate spurring and mildL3-4 disc space narrowing. Mild L5-S1 facet arthropathy. No spondylolysisor compression fractures. No destructive or suspicious bone lesions. Mildaortic atherosclerosis. Right upper quadrant cholecystectomy clips. IMPRESSION: Stable mild L3-4 disc disease and L5-S1 facet arthropathy. Kendell ADAMS IMG XR SPINE Final Resul t * XR CERVICAL SPINE 4-5 VIEWS (09/25/2020 2:49 PM EDT) Anatomical Region Laterality Modality C-spine Computed Radiogr aphy 09/25/2020 3:25 PM EDT Impressions 09/25/2020 3:28 PM EDT Multilevel disc disease and left-sided neural foraminal stenosis as above. Narrative 09/25/2020 3:28 PM EDT HISTORY: As above. COMPARISON: None. CERVICAL SPINE RADIOGRAPH FINDINGS: 6 images obtained. Straightening of the spine with loss of lordosis which may be due to spasm. No acute fracture or malalignment. Multilevel mild anterior wedging and endplate spurring. Mild C3-4 and C4-5 and moderate C5-6 and C6-7 disc space narrowing. Mild multilevel facet arthropathy. Right neural foramina are patent. Moderate left C3-4 and C4-5 and mild C5-6 neural foraminal narrowing. No cervical ribs. No destructive or suspicious bone lesions. Minimal right carotid atherosclerosis. Prevertebral soft tissues are normal. Imaged lung apices are clear. Procedure Note Severo Dennis MD - 09/25/2020 HISTORY: As above. COMPARISON: None. CERVICAL SPINE RADIOGRAPH FINDINGS: 6 images obtained. Straightening of the spine with loss of lordosis which may be due tospasm. No acute fracture or malalignment. Multilevel mild anterior wedgingand endplate spurring. Mild C3-4 and C4-5 and moderate C5-6 and C6-7 discspace narrowing. Mild multilevel facet arthropathy. Right neural foraminaare patent. Moderate left C3-4 and C4-5 and mild C5-6 neural foraminalnarrowing. No cervical ribs. No destructive or suspicious bone lesions.Minimal right carotid atherosclerosis. Prevertebral soft tissues arenormal. Imaged lung apices are clear. IMPRESSION: Multilevel disc disease and left-sided neural foraminal stenosis asabove. Kendell ADAMS IMHomero XR SPINE Final Resul t documented in this encounter Visit Diagnoses Diagnosis Cervical radiculopathy Brachial neuritis or radiculitis nos Lumbar radiculopathy Thoracic or lumbosacral neuritis or radiculitis, unspecified Cervical radiculopathy Brachial neuritis or radiculitis nos Lumbar radiculopathy Thoracic or lumbosacral neuritis or radiculitis, unspecified documented in this encounter Care Teams Planning Coordinator Relationship Specialty Start Date End Date Emely Cid MD PCP - General 01/21/17 02/25/23 Emely Cid MD [address] [place] [phone] [email or web address] PCP - General Family Medicine 02/26/23 Emely Cid MD Historical LMR Provider 01/02/17 Bravo Coulter MD, MS [address] [place] [address] [email or web address] Historical LMR Provider 01/02/17 03/24/21 Melissa Mendez MD [address] [place] [address] Historical LMR Provider 01/02/17 Conrado De Luna MD [address] [facility], [facility] [address] [place] [address] Historical LMR Provider 01/02/17 03/24/21 Manpreet Cali, AMMONIUM NITRATE CRYSTALLIZER [address] [place] [address] Historical LMR Provider 01/02/17 03/24/21 Derek Webster MD [address] [place] [phone] [email or web address] Historical LMR Provider 01/02/17 03/24/21 documented as of this encounter Additional Source Comments The information contained in this document represents components of the legal health record. It is not the complete legal health record.[facility]
--- OUTSIDE RECORDS SUMMARY | 2024-12-08 14:10 | XMS_ITS | Encounter Summary ---
Author Organization [facility] Address [address] [place] [address] Phone Care Team Providers Care Tissue Inserter Name Role Phone Emely Cid MD Unavailable [phone] Emely Cid MD Primary Care Provider [phone] Encounter Details Date Type Department Care Team (Late st Contact Info) Description 09/13/2024 Procedure Pass [facility], Ct Scan - [address] [address] Social History Tobacco Use Types Packs/Day Years [...] as food, clothing, or medical care? No 09/13/2024 In the past 12 months have y ou been in a relationship with a person who hurts, threatens, or tries to control you? No 09/13/2024 Are you denied basic needs s uch as food, clothing, or medical care? No 09/13/2024 In the past 12 months have y ou been in a relationship with a person who hurts, threatens, or tries to control you? No 09/13/2024 Sex and Gender Information Value Date Recorded Sex Assigned at Male 02/10/2018 9:05 AM EST Legal Sex Male 5:54 PM EST Gender Identity Male 02/10/2018 9:05 AM EST Sexual Orientation Straight 02/10/2018 9: 05 AM EST documented as of this encounter Functional Status * Calculated C-SSRS Risk Score (Lifetime/Recent) Answer Date of Assessment Author No Risk Indicated 09/13/2024 3:23 PM EDT Seda Fox RN * [place] Suicide Severity Rating Scale (Screener/Recent Self-Report) Question Answer Date of Assessment Author 1. Wish to be (Past 1 Month) No 09/13/2024 3:23 PM Brett Arroyo RN 2. Non-Specific Active Suicidal Thoughts (Past 1 Month) No 09/13/2024 3:23 PM EDT Brett Conrad RN 6. Suicidal Behavior (Lifetime) No 09/13/2024 3:23 PM Brett Arroyo RN documented as of this encounter Plan of Treatment Not on file documented as of this encounter Visit Diagnoses Not on filedocumented in this encounter Care Teams Tissue Inserter Relationship Specialty Start Date End Date Emely Cid MD [address] [place] [phone] [email or web address] PCP - General Family Medicine 02/26/23 Emely Cid MD .[email or web address] Historical LMR Provider 01/02/17 documented as of this encounter Additional Source Comments The information contained in this document represents components of the legal health record. It is not the complete legal health record.[facility]
--- OUTSIDE RECORDS SUMMARY | 2024-12-08 14:10 | XMS_ITS | Encounter Summary ---
Author Organization [facility] Address [address] [place] [address] [place] [address] Phone Care Team Providers Care Dumper Operator Name Role Phone Emely Cid MD Unavailable [phone] Bravo Coulter MD, [place] Unavailable [phone] Melissa Mendez MD Unavailable [phone] Conrado De Luna MD Unavailable [phone] Manpreet Cali CNP Unavailable [phone] Derek Webster MD Unavailable [phone] Emely Cid MD Primary Care Provider [phone] Emely Cid MD Primary Care Provider [phone] Reason for Referral * MRI/CAT Scan - Closed Specialty Diagnoses / Procedures [facility] Referred To Contact Radiology Diagnoses Mild cognitive impairment, so stated Procedures MRI Brain CHG MRI BRAIN Emely Cid MD Phone: tel: fax: [email or web address] Referral ID Status Reason Start Date Expiration Date Visits Re quested Visits Authorized [id number] Closed 12/13/2020 06/11/2021 1 1 Encounter Details Date Type Department Care Team (Late st Contact Info) Description 12/13/2020 Transcribe Orders Virtual Department [address] [place] [address] Emely Cid MD [address] [place] [address] [email or web address] Mild cognitive impairment, so stated (Primary Dx) Social History Tobacco Use Types [...] documented as of this encounter Results * MRI BRAIN WITHOUT CONTRAST (01/16/2021 5:11 PM EDT) Anatomical Region Laterality Modality Head Magnetic Resonan ce 01/16/2021 5:12 PM EDT Impressions 01/16/2021 5:26 PM EDT No discrete hemorrhage, mass, infarction detected. Abnormal white matter changes and mild prominence of perivascular spaces appear largely similar to prior study from 2017. No progressive lobar volume loss. Narrative 01/16/2021 5:26 PM EDT HISTORY: Short-term MR loss. Right-sided numbness. COMPARISON: CT brain December 04, 2019. MRI brain February 12, 2017 TECHNIQUE: Exam performed on a 1.5 Marva high-field MRI scanner. Axial T1, T2, susceptibility, T2 FLAIR and diffusion-weighted imaging with ADC map, sagittal T1 sequences were obtained. FINDINGS: Multiple areas of abnormal subcortical white matter signal alteration are again noted, frontal lobe predominant and largely similar to prior without a clear progression. Mild enlargement of some of the perivascular spaces again noted in the cerebral white matter, particularly over the convexities. Some similar changes seen in the cerebral peduncles. No abnormal cgtun-dguvz-mdkbk blood or fluid collection, mass, or mass effect is identified. Sulci and ventricles appear largely similar to prior study without progressive volume loss. Pituitary not enlarged. Cervical tonsils not ectopic. No orbital lesions identified. Polypoid thickening again noted in maxillary sinuses. Minor mucosal thickening in other paranasal sinuses. No fluid Left vertebral is again noted to be rudimentary. There appear to be preserved flow voids in the other major intracranial arteries and veins with most of the right posterior circulation fed via posterior communicating artery. No areas of restricted diffusion or worrisome susceptibility effect are identified. Procedure Note Reji Masters MD - 01/16/2021 HISTORY: Short-term MR loss. Right-sided numbness. COMPARISON: CT brain December 04, 2019. MRI brain February 12, 2017 TECHNIQUE: Exam performed on a 1.5 Marva high-field MRI scanner. AxialT1, T2, susceptibility, T2 FLAIR and diffusion-weighted imaging with ADCmap, sagittal T1 sequences were obtained. FINDINGS: Multiple areas of abnormal subcortical white matter signal alteration areagain noted, frontal lobe predominant and largely similar to prior withouta clear progression. Mild enlargement of some of the perivascular spacesagain noted in the cerebral white matter, particularly over theconvexities. Some similar changes seen in the cerebral peduncles. No abnormal issyj-xkdgc-omang blood or fluid collection, mass, or masseffect is identified. Sulci and ventricles appear largely similar to priorstudy without progressive volume loss. Pituitary not enlarged. Cervical tonsils not ectopic. No orbital lesions identified. Polypoid thickening again noted inmaxillary sinuses. Minor mucosal thickening in other paranasal sinuses. Nofluid Left vertebral is again noted to be rudimentary. There appear to bepreserved flow voids in the other major intracranial arteries and veinswith most of the right posterior circulation fed via posteriorcommunicating artery. No areas of restricted diffusion or worrisome susceptibility effect areidentified. IMPRESSION: No discrete hemorrhage, mass, infarction detected. Abnormal white matterchanges and mild prominence of perivascular spaces appear largely similarto prior study from 2017. No progressive lobar volume loss. us Emely Cid MD IMG MR HEAD/NECK Final Resu lt documented in this encounter Visit Diagnoses Diagnosis Mild cognitive impairment, so stated- Primary Mild cognitive impairment, so stated documented in this encounter Care Teams Dumper Operator Relationship Specialty Start Date End Date Emely Cid MD PCP - General 01/21/17 02/25/23 Emely Cid MD [address] [place] [phone] [email or web address] - General Family Medicine 02/26/23 Emely Cid MD Historical LMR Provider 01/02/17 Bravo Coulter MD, MS [address] [place] [address] [email or web address] Historical LMR Provider 01/02/17 03/24/21 Melissa Mendez MD [address] [place] [address] Historical LMR Provider 01/02/17 Conrado De Luna MD [address] [place] [address], [facility] [address] [place] [address] Historical LMR Provider 01/02/17 03/24/21 Manpreet Cali, COCONUT JELLY ROLLER [address] [place] [address] Historical LMR Provider 01/02/17 03/24/21 Derek Webster MD [address] [address] [email or web address] Historical LMR Provider 01/02/17 03/24/21 documented as of this encounter Additional Source Comments The information contained in this document represents components of the legal health record. It is not the complete legal health record.[facility]
--- OUTSIDE RECORDS SUMMARY | 2024-12-08 14:10 | XMS_ITS | Encounter Summary ---
Author Organization [facility] Address [address] [place] [address] [place] [address] Phone Care Team Providers Care Upper Extremity Surgeon Name Role Phone Emely Cid MD Unavailable [phone] Emely Cid MD Primary Care Provider [phone] Emely Cid MD Primary Care Provider Encounter Details Date Type Department Care Team (Late st Contact Info) Description 05/01/2021 Procedure Pass [facility] [address] [place] [address] Social History Tobacco Use Types Packs/Day Years [...] on filedocumented in this encounter Care Teams Upper Extremity Surgeon Relationship Specialty Start Date End Date Emely Cid MD PCP - General 01/21/17 02/25/23 Emely Cid MD [address] [place] [phone] [email or web address] PCP - General Family Medicine 02/26/23 Emely Cid MD [email or web address] Historical LMR Provider 01/02/17 documented as of this encounter Additional Source Comments The information contained in this document represents components of the legal health record. It is not the complete legal health record.[facility]
--- OUTSIDE RECORDS SUMMARY | 2024-12-08 14:10 | XMS_ITS | Encounter Summary ---
Author Organization [facility] Address [address] [place] [address] Phone Care Team Providers Care Space And Missile Defense Operations Name Role Phone Emely Cid MD Unavailable [phone] Emely Cid MD Primary Care Provider [phone] Emely Cid MD Primary Care Provider [phone] Encounter Details Date Type Department Care Team (Late st Contact Info) Description 04/30/2021 Procedure Pass [facility] [address] [place] [address] Social History Tobacco Use Types Packs/Day Years [...] Date of Assessment Author No Risk Indicated 04/30/2021 3:35 PM EST Frida Carreon, RN * [place] Suicide Severity Rating Scale (Screener/Recent Self-Report) Question Answer Date of Assessment Author 1. Wish to be (Past 1 Month) No 04/30/2021 3:35 PM Frida Bahena RN 2. Non-Specific Active Suicidal Thoughts (Past 1 Month) No 04/30/2021 3:35 PM Frida Bahena RN 6. Suicidal Behavior (Lifetime) No 04/30/2021 3:35 PM Frida Bahena RN documented as of this encounter Plan of Treatment Not on file documented as of this encounter Visit Diagnoses Not on filedocumented in this encounter Care Teams Space And Missile Defense Operations Relationship Specialty Start Date End Date Emely Cid MD [email or web address] PCP - General 01/21/17 02/25/23 Emely Cid MD [address] [place] [phone] [email or web address] - General Family Medicine 02/26/23 Emely Cid MD [email or web address] Historical LMR Provider 01/02/17 documented as of this encounter Additional Source Comments The information contained in this document represents components of the legal health record. It is not the complete legal health record.[facility]
--- OUTSIDE RECORDS SUMMARY | 2024-12-08 14:10 | XMS_ITS | Encounter Summary ---
Author Organization [facility] Address [facility] [address] [place] [address] Phone Care Team Providers Care Home Health Clinical Supervisor Name Role Phone Emely Cid MD Unavailable [phone] Emely Cid MD Primary Care Provider [phone] Emely Cid MD Primary Care Provider [phone] Encounter Details Date Type Department Care Team (Late st Contact Info) Description 07/30/2021 Procedure Pass [address] [place] [address] Social History Tobacco Use Types Packs/Day Years [...] AM EST documented as of this encounter Last Filed Vital Signs Vital Sign Reading Time Taken Comments Blood Pressure - - Pulse - - Temperature - - Respiratory Rate - - Oxygen Saturation - - Inhaled Oxygen Concentration - - Weight 86.2 kg (190 lb) 07/30/2021 3:52 PM EDT Height 157.5 cm (5' 2 ) 07/30/2021 3:52 PM EDT Body Mass Index 34.75 07/30/2021 3:52 PM EDT documented in this encounter Plan of Treatment Not on file documented as of this encounter Visit Diagnoses Not on filedocumented in this encounter Care Teams Home Health Clinical Supervisor Relationship Specialty Start Date End Date Emely Cid MD [email or web address] PCP - General 01/21/17 02/25/23 Emely Cid MD [address] [place] [phone] [email or web address] PCP - General Family Medicine 02/26/23 Emely Cid MD [email or web address] Historical LMR Provider 01/02/17 documented as of this encounter Additional Source Comments The information contained in this document represents components of the legal health record. It is not the complete legal health record.[facility]
--- OUTSIDE RECORDS SUMMARY | 2024-12-08 14:10 | XMS_ITS | Encounter Summary ---
Author Organization [facility] Address [address] [place] [address] Phone Care Team Providers Care Customer Program Specialist Name Role Phone Emely Cid MD Unavailable [phone] Emely Cid MD Primary Care Provider [phone] Emely Cid MD Primary Care Provider [phone] Encounter Details Date Type Department Care Team (Late st Contact Info) Description 04/30/2021 Procedure Pass [facility], [address] [address] Social History Tobacco Use Types Packs/Day Years [...] Risk Indicated 04/30/2021 3:35 PM EST Frida Carreon RN * [place] Suicide Severity Rating Scale (Screener/Recent Self-Report) Question Answer Date of Assessment Author 1. Wish to be (Past 1 Month) No 04/30/2021 3:35 PM Frida Bahena, ELOY 2. Non-Specific Active Suicidal Thoughts (Past 1 Month) No 04/30/2021 3:35 PM Frida Bahena RN 6. Suicidal Behavior (Lifetime) No 04/30/2021 3:35 PM Frida Bahena RN documented as of this encounter Plan of Treatment Not on file documented as of this encounter Visit Diagnoses Not on filedocumented in this encounter Care Teams Customer Program Specialist Relationship Specialty Start Date End Date Emely Cid MD [email or web address] PCP - General 01/21/17 02/25/23 Emely Cid MD [address] [place] [phone] [email or web address] [email or web address] - General Family Medicine 02/26/23 Emely Cid MD [email or web address] Historical LMR Provider 01/02/17 documented as of this encounter Additional Source Comments The information contained in this document represents components of the legal health record. It is not the complete legal health record.[facility]
--- OUTSIDE RECORDS SUMMARY | 2024-12-08 14:10 | XMS_ITS | Encounter Summary ---
Author Organization [facility] Address [address] [place] [address] Phone Care Team Providers Care Grapple Crew Leader Name Role Phone Emely Cid MD Unavailable [phone] Emely Cid MD Primary Care Provider [phone] Emely Cid MD Primary Care Provider [phone] Encounter Details Date Type Department Care Team (Late st Contact Info) Description 04/30/2021 Procedure Pass [facility], Ct Scan - [address] [address] Social History Tobacco Use Types Packs/Day Years [...] Indicated 04/30/2021 3:35 PM EST Frida Carreon, ELOY * [place] Suicide Severity Rating Scale (Screener/Recent Self-Report) Question Answer Date of Assessment Author 1. Wish to be (Past 1 Month) No 04/30/2021 3:35 PM Frida Bahena, ELOY 2. Non-Specific Active Suicidal Thoughts (Past 1 Month) No 04/30/2021 3:35 PM Frida Bahena RN 6. Suicidal Behavior (Lifetime) No 04/30/2021 3:35 PM Frida Bahena, ELOY documented as of this encounter Plan of Treatment Not on file documented as of this encounter Visit Diagnoses Not on filedocumented in this encounter Care Teams Grapple Crew Leader Relationship Specialty Start Date End Date Emely Cid MD [email or web address] PCP - General 01/21/17 02/25/23 Emely iCd MD [address] [place] [phone] [email or web address] PCP - General Family Medicine 02/26/23 Emely Cid MD [email or web address] Historical LMR Provider 01/02/17 documented as of this encounter Additional Source Comments The information contained in this document represents components of the legal health record. It is not the complete legal health record.[facility]
--- OUTSIDE RECORDS SUMMARY | 2024-12-08 14:10 | XMS_ITS | Encounter Summary ---
Author Organization [facility] Address [address] [facility] [address] [place] [address] Phone Care Team Providers Care External Grinder Name Role Phone Emely Cid MD Unavailable Bravo Coulter MD, [place] Unavailable [phone] Melissa Mendez MD Unavailable Conrado De Luna MD Unavailable [phone] Manpreet Cali CNP Unavailable [phone] Derek Webster MD Unavailable [phone] Emely Cid MD Primary Care Provider [phone] Emely Cid MD Primary Care Provider [phone] Encounter Details Date Type Department Care Team (Late st Contact Info) Description 12/04/2019 Procedure Pass [facility], Ct Scan - [address] [address] Social History Tobacco Use Types Packs/Day Years [...] on filedocumented in this encounter Care Teams External Grinder Relationship Specialty Start Date End Date Emely Cid MD PCP - General 01/21/17 02/25/23 Emely Cid MD [address] [place] [phone] [email or web address] PCP - General Family Medicine 02/26/23 Emely Cid MD Historical LMR Provider 01/02/17 Bravo Coulter MD, [place] [address] [place] [address] Historical LMR Provider 01/02/17 03/24/21 Melissa Mendez MD [address] [place] [address] Historical LMR Provider 01/02/17 Conrado De Luna MD 22 [facility], [facility] [address] [place] [address] Historical LMR Provider 01/02/17 03/24/21 Manpreet Cali, DRUGLESS DOCTOR [address] [place] [address] Historical LMR Provider 01/02/17 03/24/21 Derek Webster MD [address] [address] [email or web address] Historical LMR Provider 01/02/17 03/24/21 documented as of this encounter Additional Source Comments The information contained in this document represents components of the legal health record. It is not the complete legal health record.[facility]
--- OUTSIDE RECORDS SUMMARY | 2024-12-08 14:10 | XMS_ITS | Encounter Summary ---
Author Organization [facility] Address [address] [employer] [facility] [address] [place] [address] Phone Care Team Providers Care Help Desk Supervisor Name Role Phone Emely Cid MD Unavailable [phone] Bravo Coulter MD, [place] Unavailable Melissa Mendez MD Unavailable Conrado De Luna MD Unavailable [phone] Manpreet Cali CNP Unavailable Derek Webster MD Unavailable [phone] Emely Cid MD Primary Care Provider [phone] Emely Cid MD Primary Care Provider [phone] Encounter Details Date Type Department Care Team (Late st Contact Info) Description 12/13/2020 Procedure Pass [facility], [address] [address] Social History Tobacco Use Types Packs/Day Years [...] on filedocumented in this encounter Care Teams Help Desk Supervisor Relationship Specialty Start Date End Date Emely Cid MD PCP - General 01/21/17 02/25/23 Emely Cid MD [address] [place] [phone] [email or web address] PCP - General Family Medicine 02/26/23 Emely Cid MD Historical LMR Provider 01/02/17 Bravo Coulter MD, MS [address] [place] [address] Historical LMR Provider 01/02/17 03/24/21 Melissa Mendez MD [address] [place] [address] Historical LMR Provider 01/02/17 Conrado De Luna MD 22 [facility], [email or web address] [address] [place] [address] Historical LMR Provider 01/02/17 03/24/21 Manpreet Cali, DURALUMIN MECHANIC [address] [place] [address] Historical LMR Provider 01/02/17 03/24/21 Derek Webster MD [address] [address] [email or web address] Historical LMR Provider 01/02/17 03/24/21 documented as of this encounter Additional Source Comments The information contained in this document represents components of the legal health record. It is not the complete legal health record.[facility]
--- OUTSIDE RECORDS SUMMARY | 2024-12-08 14:10 | XMS_ITS | Encounter Summary ---
Author Organization [facility] Address [address] [place] [address] Phone Care Team Providers Care Boilermaker Industrial Boilers Name Role Phone Emely Cid MD Unavailable [phone] Emely Cid MD Primary Care Provider [phone] Encounter Details Date Type Department Care Team (Late st Contact Info) Description 04/17/2024 Procedure Pass [facility], Ct Scan - [address] [address] Social History Tobacco Use Types Packs/Day Years [...] 04/17/2024 11:41 AM Britta Jones RN * [place] Suicide Severity Rating Scale (Screener/Recent Self-Report) Question [...] on filedocumented in this encounter Care Teams Boilermaker Industrial Boilers Relationship Specialty Start Date End Date Emely Cid MD [address] [place] [phone] [email or web address] PCP - General Family Medicine 02/26/23 Emely Cid MD [email or web address] Historical LMR Provider 01/02/17 documented as of this encounter Additional Source Comments The information contained in this document represents components of the legal health record. It is not the complete legal health record.[facility]
--- OUTSIDE RECORDS SUMMARY | 2024-12-08 14:10 | XMS_ITS | Encounter Summary ---
Author Organization [facility] Address [address] [employer] [facility] [address] [place] [address] Phone Care Team Providers Care Tennis Court Attendant Name Role Phone Emely Cid MD Unavailable Bravo Coulter MD, [place] Unavailable [phone] Melissa Mendez MD Unavailable Conrado De Luna MD Unavailable [phone] Manpreet Cali CNP Unavailable [phone] Derek Webster MD Unavailable [phone] Emely Cid MD Primary Care Provider [phone] Emely Cid MD Primary Care Provider [phone] Encounter Details Date Type Department Care Team (Late st Contact Info) Description 03/20/2021 Procedure Pass [facility], [address] [address] Social History Tobacco Use Types Packs/Day Years [...] on filedocumented in this encounter Care Teams Tennis Court Attendant Relationship Specialty Start Date End Date Emely Cid MD PCP - General 01/21/17 02/25/23 Emely Cid MD [address] [place] [phone] [email or web address] PCP - General Family Medicine 02/26/23 Emely Cid MD Historical LMR Provider 01/02/17 Bravo Coulter MD, MS [address] [place] [address] Historical LMR Provider 01/02/17 03/24/21 Melissa Mendez MD [address] [place] [address] Historical LMR Provider 01/02/17 Conrado De Luna MD 22 [facility], [facility] [address] [place] [address] Historical LMR Provider 01/02/17 03/24/21 Manpreet Cali, TRIM AND BURR OPERATOR [address] [place] [address] Historical LMR Provider 01/02/17 03/24/21 Derek Webster MD [address] [address] [email or web address] Historical LMR Provider 01/02/17 03/24/21 documented as of this encounter Additional Source Comments The information contained in this document represents components of the legal health record. It is not the complete legal health record.[facility]
--- OUTSIDE RECORDS SUMMARY | 2024-12-08 14:10 | XMS_ITS | Encounter Summary ---
Author Organization [facility], Address [address] [place] [address] Phone Care Team Providers Care Skinner Pelts Name Role Phone Emely Cid MD Primary Care Provider Encounter Details Date Type Department Care Team (Late st Contact Info) Description 04/24/2023 Documentation Only [facility], [address] [place] [phone] Gina York [address] [place] [phone] Social History Tobacco Use Types Packs/Day Years [...] on filedocumented in this encounter Care Teams Skinner Pelts Relationship Specialty Start Date End Date Emely Cid MD [address] [place] [phone] PCP - General Family Medicine 09/11/22 documented as of this encounter
--- OUTSIDE RECORDS SUMMARY | 2024-12-08 14:10 | XMS_ITS | Encounter Summary ---
Author Organization [facility] Address [address] [place] [address] [place] [address] Phone Care Team Providers Care Vice President Of Procurement Name Role Phone Emely Cid MD Unavailable [phone] Emely Cid MD Primary Care Provider [phone] Emely Cid MD Primary Care Provider [phone] Reason for Referral * MRI/CAT Scan - Closed Specialty Diagnoses / Procedures Referred By Zeeshan rick Referred To Contact Radiology Diagnoses Facial weakness Procedures MRI Brain CHG MRI BRAIN Emely Cid MD Phone: tel: fax: [email or web address] Referral ID Status Reason Start Date Expiration Date Visits Re quested Visits Authorized [id number] Closed 07/26/2021 01/22/2022 1 1 Encounter Details Date Type Department Care Team (Late st Contact Info) Description 07/30/2021 Transcribe Orders [facility] Department [address] [place] [address] Emely Cid MD [address] [place] [address] [email or web address] Facial weakness (Primary Dx) Social History Tobacco Use Types [...] encounter Results * MRI BRAIN WITHOUT CONTRAST (08/01/2021 1:18 PM EDT) Anatomical Region Laterality Modality Head Magnetic Resonan ce 08/01/2021 1:32 PM EDT Impressions 08/01/2021 2:02 PM EDT No acute intracranial findings. Stable nonspecific white matter disease which may reflect chronic microangiopathy. Narrative 08/01/2021 2:02 PM EDT COMPARISON: MRI brain 05/01/2021. CT brain 04/30/2021. TECHNIQUE: Exam performed on a 1.5 Marva high-field MRI scanner. Axial T1, GRE, T2, FLAIR and diffusion-weighted imaging with ADC map, sagittal T1 and T2 FLAIR sequences were obtained. MRI BRAIN FINDINGS: Brain: No cerebellar tonsil herniation. Pituitary gland is not enlarged. No restricted diffusion to indicate acute or subacute ischemia. No intraparenchymal susceptibility artifact to indicate hemorrhage. No mass, mass effect, midline shift or extra-axial fluid collections. Stable multiple subcortical and deep white matter T2 hyperintense lesions and benign perivascular spaces. Ventricles: No hydrocephalus. Vasculature: Normal vascular flow-voids. Orbits: Normal. Mastoids/Middle Ear/Paranasal Sinuses: Trace ethmoid sinus mucosal thickening and small chronic maxillary sinus retention cysts. Soft Tissues: Unremarkable. Bone Marrow: Unremarkable. Procedure Note Severo Dennis MD - 08/01/2021 COMPARISON: MRI brain 05/01/2021. CT brain 04/30/2021. TECHNIQUE: Exam performed on a 1.5 Marva high-field MRI scanner. AxialT1, GRE, T2, FLAIR and diffusion-weighted imaging with ADC map, sagittalT1 and T2 FLAIR sequences were obtained. MRI BRAIN FINDINGS: Brain: No cerebellar tonsil herniation. Pituitary gland is not enlarged.No restricted diffusion to indicate acute or subacute ischemia. Nointraparenchymal susceptibility artifact to indicate hemorrhage. No mass,mass effect, midline shift or extra- axial fluid collections. Stablemultiple subcortical and deep white matter T2 hyperintense lesions andbenign perivascular spaces. Ventricles: No hydrocephalus. Vasculature: Normal vascular flow-voids. Orbits: Normal. Mastoids/Middle Ear/Paranasal Sinuses: Trace ethmoid sinus mucosalthickening and small chronic maxillary sinus retention cysts. Soft Tissues: Unremarkable. Bone Marrow: Unremarkable. IMPRESSION: No acute intracranial findings. Stable nonspecific white matter diseasewhich may reflect chronic microangiopathy. Emely Cid MD IMG MR HEAD/NECK Final Resu lt documented in this encounter Visit Diagnoses Diagnosis Facial weakness- Primary Facial weakness documented in this encounter Care Teams Vice President Of Procurement Relationship Specialty Start Date End Date Emely Cid MD [email or web address] PCP - General 01/21/17 02/25/23 Emely Cid MD [address] [place] [phone] [email or web address] PCP - General Family Medicine 02/26/23 Emely Cid MD [email or web address] Historical LMR Provider 01/02/17 documented as of this encounter Additional Source Comments The information contained in this document represents components of the legal health record. It is not the complete legal health record.[facility]
--- OUTSIDE RECORDS SUMMARY | 2024-12-08 14:10 | XMS_ITS | Clinical Summary ---
Author Organization [facility], Address [address] [address] Phone Care Team Providers Care Pointing Machine Operator Name Role Phone Emely Cid [...] Diagnosed Date Nephrolithiasis 12/13/2022 Hypertension 12/13/2022 Immunizations Immunization Administration Dates Next Due Influenza (IM) Preservative [...] Due Date Last Done Comments Pneumococcal Vaccine: 50+ Years (1 of 2 - PCV) 1981 Colorectal Cancer Screening: Annual FOBT 2011 Colorectal Cancer Screening: Colonoscopy 2011 Colorectal Cancer Screening: Sigmoidoscopy 2011 Influenza Vaccine (#1) 2024 0, 11/24/2018, 12/02/2017, Additional history exists Hepatitis B Vaccine Aged Out No longe r eligible based on patient's age to complete this topic Insurance , [address] [place] [address] [place] [address] Care Teams Pointing Machine Operator Relationship Specialty Start Date End Date Emely Cid MD [address] [place] [address] PCP - General Family Medicine 09/11/22
--- OUTSIDE RECORDS SUMMARY | 2024-12-08 14:10 | XMS_ITS | Encounter Summary ---
Author Organization [facility], Address [address] [place] [address] Phone Care Team Providers Care Deputy Bailiff Name Role Phone Emely Cid MD Primary Care Provider [phone] Encounter Details Date Type Department Care Team (Late st Contact Info) Description 09/13/2022 Documentation Only [facility], - [address] [place] [address] Emely Cid MD [address] [place] [phone] Social History Tobacco Use Types Packs/Day Years [...] on filedocumented in this encounter Care Teams Deputy Bailiff Relationship Specialty Start Date End Date Emely Cid MD [address] [place] [phone] PCP - General Family Medicine 09/11/22 documented as of this encounter
--- OUTSIDE RECORDS SUMMARY | 2024-12-08 14:10 | XMS_ITS | Encounter Summary ---
Author Organization [facility] Address [address] [place] [address] Phone Care Team Providers Care Brokerage Branch Manager Name Role Phone Emely Cid MD Unavailable [phone] Emely Cid MD Primary Care Provider [phone] Emely Cid MD Primary Care Provider [phone] Encounter Details Date Type Department Care Team (Late st Contact Info) Description 04/30/2021 Procedure Pass [facility], Ct Scan - [address] [address] Social History Tobacco Use Types Packs/Day Years [...] 3:35 PM EST Frida Carreon, ELOY * [place] Suicide Severity Rating Scale (Screener/Recent Self-Report) Question [...] on filedocumented in this encounter Care Teams Brokerage Branch Manager Relationship Specialty Start Date End Date Emely Cid MD PCP - General 01/21/17 02/25/23 Emely Cid MD [address] [place] [phone] [email or web address] PCP - General Family Medicine 02/26/23 Emely Cid MD [email or web address] Historical LMR Provider 01/02/17 documented as of this encounter Additional Source Comments The information contained in this document represents components of the legal health record. It is not the complete legal health record.[facility]
--- OUTSIDE RECORDS SUMMARY | 2024-12-08 14:11 | XMS_ITS | Encounter Summary ---
Author Organization [facility] Address [address] [employer] [facility] [address] [place] [address] Phone Care Team Providers Care Wire Inserter Name Role Phone Emely Cid MD Unavailable Bravo Coulter MD, [place] Unavailable [phone] Melissa Mendez MD Unavailable Conrado De Luna MD Unavailable [phone] Manpreet Cali CNP Unavailable Derek Webster MD Unavailable [phone] Emely Cid MD Primary Care Provider [phone] Emely Cid MD Primary Care Provider [phone] Encounter Details Date Type Department Care Team (Late st Contact Info) Description 02/11/2018 Procedure Pass [facility], [address] [address] Social History Tobacco Use Types Packs/Day Years [...] on filedocumented in this encounter Care Teams Wire Inserter Relationship Specialty Start Date End Date Emely Cid MD PCP - General 01/21/17 02/25/23 Emely Cid MD [address] [place] [phone] [email or web address] PCP - General Family Medicine 02/26/23 Emely Cid MD Historical LMR Provider 01/02/17 Bravo Coulter MD, MS [address] [place] [address] Historical LMR Provider 01/02/17 03/24/21 Melissa Mendez MD [address] [place] [address] Historical LMR Provider 01/02/17 Conrado De Luna MD 22 [facility], [address] [place] [address] Historical LMR Provider 01/02/17 03/24/21 Manpreet Cali, CONVENTIONS RESERVATIONIST [address] [place] [address] Historical LMR Provider 01/02/17 03/24/21 Derek Webster MD [address] [address] [email or web address] Historical LMR Provider 01/02/17 03/24/21 documented as of this encounter Additional Source Comments The information contained in this document represents components of the legal health record. It is not the complete legal health record.[facility]
--- OUTSIDE RECORDS SUMMARY | 2024-12-08 14:11 | XMS_ITS | Encounter Summary ---
Author Organization [facility] Address [address] [place] [address] [place] [address] Phone Care Team Providers Care Network Support Name Role Phone Emely Cid MD Unavailable Bravo Coulter MD, [place] Unavailable [phone] Melissa Mendez MD Unavailable Conrado De Luna MD Unavailable [phone] Manpreet Cali CNP Unavailable [phone] Derek Webster MD Unavailable [phone] Emely Cid MD Primary Care Provider Emely Cid MD Primary Care Provider Encounter Details Date Type Department Care Team (Late st Contact Info) Description 02/03/2017 Ancillary Orders Virtual Department [address] [place] [address] Emely Cid MD [address] [place], [place] [phone] Dizziness and giddiness Social History Tobacco Use Types Packs/Day Years [...] encounter Results * MRI BRAIN WITHOUT CONTRAST (02/12/2017 8:15 PM EST) Anatomical Region Laterality Modality Head Magnetic Resonan ce 02/13/2017 9:39 AM EST Impressions 02/13/2017 9:50 AM EST Mild to moderate T2/T2 FLAIR hyperintense change in the supratentorial white matter bilaterally most likely due to chronic small vessel ischemia. A demyelinating process, such as multiple sclerosis, is less likely. No other significant intracranial abnormalities. POS - [id number] Narrative 02/13/2017 9:50 AM EST HISTORY: Presyncope, migraines. COMPARISON: None. TECHNIQUE: Exam performed on a 1.5 Marva high-field MRI scanner. Axial T1, T2, T2*, T2 FLAIR and diffusion-weighted imaging with ADC map, sagittal T1 and T2 FLAIR sequences were obtained. FINDINGS: No evidence of intracranial hemorrhage, hematomas or masses. No evidence of acute infarction. There are more than 20 small T2/T2 FLAIR hyperintense foci within the deep and periventricular white matter. A few are more subcortically located within the white matter. No signal abnormalities in the corpus callosum, brainstem or cerebellar hemispheres. The ventricles are normal in size and configuration. Basal cisterns are patent. Small-moderate size retention cyst in the inferior aspect of left maxillary sinus. Small retention cysts in the inferior aspect of the right maxillary sinus. Procedure Note Keith Holley MD - 02/13/2017 HISTORY: Presyncope, migraines. COMPARISON: None. TECHNIQUE: Exam performed on a 1.5 Marva high-field MRI scanner. AxialT1, T2, T2*, T2 FLAIR and diffusion-weighted imaging with ADC map,sagittal T1 and T2 FLAIR sequences were obtained. FINDINGS: No evidence of intracranial hemorrhage, hematomas or masses. No evidenceof acute infarction. There are more than 20 small T2/T2 FLAIR hyperintense foci within the deepand periventricular white matter. A few are more subcortically locatedwithin the white matter. No signal abnormalities in the corpus callosum,brainstem or cerebellar hemispheres. The ventricles are normal in size and configuration. Basal cisterns arepatent. Small-moderate size retention cyst in the inferior aspect of leftmaxillary sinus. Small retention cysts in the inferior aspect of theright maxillary sinus. IMPRESSION: Mild to moderate T2/T2 FLAIR hyperintense change in the supratentorialwhite matter bilaterally most likely due to chronic small vessel ischemia.A demyelinating process, such as multiple sclerosis, is less likely. Noother significant intracranial abnormalities. POS - [id number] Emely Cid MD IMG MR HEAD/NECK Final Resu lt documented in this encounter Visit Diagnoses Diagnosis Dizziness and giddiness Dizziness and giddiness documented in this encounter Care Teams Network Support Relationship Specialty Start Date End Date Emely Cid MD [email or web address] PCP - General 01/21/17 02/25/23 Emely Cid MD [address] [place] [phone] [email or web address] PCP - General Family Medicine 02/26/23 Emely Cid MD Historical LMR Provider 01/02/17 Bravo Coulter MD, [place] [address] [place] [address] Historical LMR Provider 01/02/17 03/24/21 Melissa Mendez MD [address] [place] [address] Historical LMR Provider 01/02/17 Conrado De Luna MD [address] [facility], [address] [place] [address] [email or web address] Historical LMR Provider 01/02/17 03/24/21 Manpreet Cali CNP [address] [facility], 2nd [place] [address] [email or web address] Historical LMR Provider 01/02/17 03/24/21 Derek Webster MD [address] [place] [address] [email or web address] Historical LMR Provider 01/02/17 03/24/21 documented as of this encounter Additional Source Comments The information contained in this document represents components of the legal health record. It is not the complete legal health record.[facility]
--- OUTSIDE RECORDS SUMMARY | 2024-12-08 14:11 | XMS_ITS | Encounter Summary ---
Author Organization [facility] Address [address] [place] [address] [place] [address] Phone Care Team Providers Care Leather Flesher Name Role Phone Emely Cid MD Unavailable Bravo Coulter MD, [place] Unavailable [phone] Melissa Mendez MD Unavailable [phone] Conrado De Luna MD Unavailable [phone] Manpreet Cali CNP Unavailable Derek Webster MD Unavailable [phone] Emely Cid MD Primary Care Provider [phone] Emely Cid MD Primary Care Provider Encounter Details Date Type Department Care Team (Latest Contact Info) Description 10/22/2017 Transcribe Orders [facility] [address] [place] [address] Rosalia Mcclelland MD [facility], [address] [place] [address] [email or web address] Uric acid nephrolithiasis (Primary Dx) Social History Tobacco Use Types [...] documented as of this encounter Results * Creatinine/eGFR (10/22/2017 7:38 AM EDT) CREATININE 0.90 0.5 - 1.5 mg/dL [facility] EGFR 96 >59 mL/min/1.7 3m2 [facility] Comment:If patient is black, multiply result by 1.159. Estimated glomerular filtration rate calculated using the CKD-EPI equation. Blood 10/22/2017 7:38 AM EDT 10/22/2017 8:02 AM EDT Rosalia Mcclelland MD LAB BLOOD ORDERABLES Fin al Result Performing Organization Address [facility] Phone Number [address] [address] * BUN (10/22/2017 7:38 AM EDT) BUN 16 6 - 19 mg/dL [facility] Blood 10/22/2017 7:38 AM EDT 10/22/2017 8:02 AM EDT Rosalia Mcclelland MD LAB BLOOD ORDERABLES Fin al Result Performing Organization Address [facility] Phone Number [address] [address] documented in this encounter Visit Diagnoses Diagnosis Uric acid nephrolithiasis- Primary documented in this encounter Care Teams Leather Flesher Relationship Specialty Start Date End Date Emely Cid MD [email or web address] PCP - General 01/21/17 02/25/23 Emely Cid MD [address] [place] [phone] [email or web address] PCP - General Family Medicine 02/26/23 Emely Cid MD Historical LMR Provider 01/02/17 Bravo Coulter MD, MS [address] [place] [address] Historical LMR Provider 01/02/17 03/24/21 Melissa Mendez MD [address] [place] [address] Historical LMR Provider 01/02/17 Conrado De Luna MD [address] [place] [address], [address] [address] Historical LMR Provider 01/02/17 03/24/21 Manpreet Cali, COREMAKER SUPERVISOR [address] [place] [address] Historical LMR Provider 01/02/17 03/24/21 Derek Webster MD [address] [place] [address] [email or web address] Historical LMR Provider 01/02/17 03/24/21 documented as of this encounter Additional Source Comments The information contained in this document represents components of the legal health record. It is not the complete legal health record.[facility]
--- OUTSIDE RECORDS SUMMARY | 2024-12-08 14:11 | XMS_ITS | Encounter Summary ---
Author Organization [facility] Address [address] [place] [address] [place] [address] Phone Care Team Providers Care Office Clerk Routine Name Role Phone Emely Cid MD Unavailable [phone] Bravo Coulter MD, [place] Unavailable Melissa Mendez MD Unavailable [phone] Conrado De Luna MD Unavailable [phone] Manpreet Cali CNP Unavailable [phone] Derek Webster MD Unavailable [phone] Emely Cid MD Primary Care Provider [phone] Emely Cid MD Primary Care Provider [phone] Reason for Referral * MRI/CAT Scan - Closed Specialty Diagnoses / Procedures Referred By Zeeshan rick Referred To Contact Radiology Diagnoses Acquired cyst of kidney Procedures CT Abdomen/Pelvis Molly Sloan PA Phone: tel: fax: [email or web address] Referral ID Status Reason Start Date Expiration Date Visits Re quested Visits Authorized [id number] Closed 10/14/2017 12/13/2017 1 1 Encounter Details Date Type Department Care Team (Late st Contact Info) Description 10/14/2017 Ancillary Orders Virtual Department 30 [place] [address] Molly Sloan PA [address] [facility] [address] [place] [address] [email or web address] Acquired cyst of kidney Social History Tobacco Use Types Packs/Day Years [...] of this encounter Results * CT ABDOMEN/PELVIS WITH AND WITHOUT CONTRAST (10/29/2017 12:04 PM EDT) Anatomical Region Laterality Modality Abdomen, Pelvis Computed Tomogra phy 10/29/2017 12:1 6 PM EDT Impressions 10/29/2017 1:07 PM EDT 1. Right renal cyst with punctate peripheral calcification, but without appreciable solid components. Allowing to differences described above, size of the cyst is similar to prior studies as far back as 2015. A six-month follow-up CT study is recommended. 2. No new renal lesions. TOTAL CTDIvol: 18.3 mGy POS - [id number] Narrative 10/29/2017 1:07 PM EDT EXAM: CT ABDOMEN/PELVIS WITHOUT AND WITH INTRAVENOUS CONTRAST COMPARISON: Ultrasound of kidneys on October 01, 2017 describes chronic right upper pole cyst, equivocally larger and with possible peripheral calcifications.. Previous abdominal CT on June 02, 2015. Previous abdomen MRI on May 09, 2015. Previous CT study on June 23, 2012. TECHNIQUE: Water is used as an oral contrast agent. Pre-contrast views are obtained from the kidneys through the inferior pubic rami. Intravenous contrast is then administered and scanning obtained at ninety seconds from the dome of the liver to the iliac crests. Delayed scanning is then obtained from above the kidneys through the inferior pubic rami during excretory phase. FINDINGS: LOWER THORAX: Lung bases are clear. No pleural effusion. HEPATOBILIARY: Liver is normal in size, contour and density. No extra- or intrahepatic ductal dilatation. Status pos cholecystectomy. SPLEEN: No splenomegaly. PANCREAS: No focal lesion. No pancreatic ductal dilatation. No peripancreatic fat stranding. ADRENAL GLANDS: No mass or nodule. KIDNEYS AND URETERS: Right: Tiny 3 mm nonobstructing calculus in the lower pole of the right kidney. Additional 1 mm calcification in the interpolar region is located at the periphery of the know renal lesion. The known lesion in the interpolar region of the right kidney measures 14 x 13 x 16 mm on the current study (measures 13 x 11 x [address] study from 2016). The minor variation in the measurements along the years and different modalities could be due to the mildly lobulated shape of the lesion and slice/plane selection used for measurements. Allowing to these differences, the size of this lesion has been similar since 2016. A peripheral punctate calcification is seen at the same level on the unenhanced images and correlates with the echogenic focus seen on the recent ultrasound. No enhancing solid components identified. Comparison with previous MRI study is difficult due to the artifacts. No hydronephrosis or additional renal lesions identified. No hydroureter. Left: No nephrolithiasis, hydronephrosis or focal lesions. No hydroureter. STOMACH/GI TRACT: Oral contrast reaches the ileum without obstruction. Stomach is partially distended, and filled with oral contrast. There is no bowel distension, wall thickening, or inflammation. Few diverticula along the sigmoid colon. PELVIC ORGANS/BLADDER: Urinary bladder is partially distended and grossly unremarkable. Note is made of suggestion of urachal remnant. Mildly enlarged prostate gland. PERITONEUM AND RETROPERITONEUM: No free fluid, fluid collection or free air. LYMPH NODES: No enlarged retroperitoneal, mesenteric or pelvic lymph nodes. VESSELS: Atherosclerotic disease along normal-caliber abdominal aorta and iliac arteries. Inferior vena cava is unremarkable. BONES AND SOFT TISSUES: Small bilateral fat-containing inguinal hernias. Small fat-containing umbilical hernia. Cystic lesions in the anterior aspect of the right femoral neck/head are similar to previous CT study from June 2012. Procedure Note Adam Blum MD - 10/29/2017 EXAM: CT ABDOMEN/PELVIS WITHOUT AND WITH INTRAVENOUS CONTRAST COMPARISON: Ultrasound of kidneys on October 01, 2017 describes chronic rightupper pole cyst, equivocally larger and with possible peripheralcalcifications.. Previous abdominal CT on June 02, 2015. Previous abdomenMRI on May 09, 2015. Previous CT study on June 23, 2012. TECHNIQUE: Water is used as an oral contrast agent. Pre-contrast viewsare obtained from the kidneys through the inferior pubic rami.Intravenous contrast is then administered and scanning obtained at ninetyseconds from the dome of the liver to the iliac crests. Delayed scanningis then obtained from above the kidneys through the inferior pubic ramiduring excretory phase. FINDINGS: LOWER THORAX: Lung bases are clear. No pleural effusion. HEPATOBILIARY: Liver is normal in size, contour and density. Noextra- or intrahepatic ductal dilatation. Status pos cholecystectomy. SPLEEN: No splenomegaly. PANCREAS: No focal lesion. No pancreatic ductal dilatation. Noperipancreatic fat stranding. ADRENAL GLANDS: No mass or nodule. KIDNEYS AND URETERS: Right: Tiny 3 mm nonobstructing calculus in the lower pole of the rightkidney. Additional 1 mm calcification in the interpolar region is locatedat the periphery of the know renal lesion. The known lesion in theinterpolar region of the right kidney measures 14 x 13 x 16 mm on thecurrent study (measures 13 x 11 x [address] study from 2016). Theminor variation in the measurements along the years and differentmodalities could be due to the mildly lobulated shape of the lesion andslice/plane selection used for measurements. Allowing to thesedifferences, the size of this lesion has been similar since 2016. Aperipheral punctate calcification is seen at the same level on theunenhanced images and correlates with the echogenic focus seen on therecent ultrasound. No enhancing solid components identified. Comparisonwith previous MRI study is difficult due to the artifacts. Nohydronephrosis or additional renal lesions identified. No hydroureter. Left: No nephrolithiasis, hydronephrosis or focal lesions. Nohydroureter. STOMACH/GI TRACT: Oral contrast reaches the ileum without obstruction.Stomach is partially distended, and filled with oral contrast. There is nobowel distension, wall thickening, or inflammation. Few diverticula alongthe sigmoid colon. PELVIC ORGANS/BLADDER: Urinary bladder is partially distended and grosslyunremarkable. Note is made of suggestion of urachal remnant. Mildlyenlarged prostate gland. PERITONEUM AND RETROPERITONEUM: No free fluid, fluid collection or freeair. LYMPH NODES: No enlarged retroperitoneal, mesenteric or pelvic lymphnodes. VESSELS: Atherosclerotic disease along normal-caliber abdominal aorta andiliac arteries. Inferior vena cava is unremarkable. BONES AND SOFT TISSUES: Small bilateral fat-containing inguinal hernias.Small fat-containing umbilical hernia. Cystic lesions in the anterioraspect of the right femoral neck/head are similar to previous CT studyfrom June 2012. IMPRESSION: 1. Right renal cyst with punctate peripheral calcification, but withoutappreciable solid components. Allowing to differences described above,size of the cyst is similar to prior studies as far back as 2015. Asix-month follow-up CT study is recommended. 2. No new renal lesions. TOTAL CTDIvol: 18.3 mGy POS - [id number] Molly ADAMS IMG CT ABD/PELVIS Final Re sult documented in this encounter Visit Diagnoses Diagnosis Acquired cyst of kidney Acquired cyst of kidney documented in this encounter Care Teams Office Clerk Routine Relationship Specialty Start Date End Date Emely Cid MD [email or web address] PCP - General 01/21/17 02/25/23 Emely Cid MD [address] [place] [phone] [email or web address] PCP - General Family Medicine 02/26/23 Emely Cid MD [email or web address] Historical LMR Provider 01/02/17 Bravo Coulter MD, MS [address] [place] [address] Historical LMR Provider 01/02/17 03/24/21 Melissa Mendez MD [address] [facility], [address] [place] [address] Historical LMR Provider 01/02/17 Conrado De Luna MD [address] [facility], [address] [place] [address] Historical LMR Provider 01/02/17 03/24/21 Manpreet Cali CNP [address] [facility], [address] [place] [address] Historical LMR Provider 01/02/17 03/24/21 Derek Webster MD [address] [place] [address] [email or web address] Historical LMR Provider 01/02/17 03/24/21 documented as of this encounter Additional Source Comments The information contained in this document represents components of the legal health record. It is not the complete legal health record.[facility]
--- OUTSIDE RECORDS SUMMARY | 2024-12-08 14:11 | XMS_ITS | Encounter Summary ---
Author Organization [facility] Address [address] [place] [address] [place] [address] Phone Care Team Providers Care It Support Specialist Name Role Phone Emely Cid MD Unavailable [phone] Bravo Coulter MD, [place] Unavailable [phone] Melissa Mendez MD Unavailable Conrado De Luna MD Unavailable [phone] Manpreet Cali CNP Unavailable [phone] Derek Webster MD Unavailable [phone] Emely Cid MD Primary Care Provider [phone] Emely Cid MD Primary Care Provider Encounter Details Date Type Department Care Team (Late st Contact Info) Description 10/14/2017 Procedure Pass [facility] [place], Ct Scan - [address] [address] Social History Tobacco Use Types Packs/Day Years [...] on filedocumented in this encounter Care Teams It Support Specialist Relationship Specialty Start Date End Date Emely Cid MD PCP - General 01/21/17 02/25/23 Emely Cid MD [address] [place] [phone] [email or web address] PCP - General Family Medicine 02/26/23 Emely Cid MD Historical LMR Provider 01/02/17 Bravo Coulter MD, MS [address] [place] [address] [email or web address] Historical LMR Provider 01/02/17 03/24/21 Melissa Mendez MD [address] [place] [address] Historical LMR Provider 01/02/17 Conrado De Luna MD [address] [place] [address], [facility] [address] [place] [address] Historical LMR Provider 01/02/17 03/24/21 Manpreet Cali, BRAKE HOLDER [address] [place] [address] Historical LMR Provider 01/02/17 03/24/21 Derek Webster MD [address] [address] [email or web address] Historical LMR Provider 01/02/17 03/24/21 documented as of this encounter Additional Source Comments The information contained in this document represents components of the legal health record. It is not the complete legal health record.[facility]
--- OUTSIDE RECORDS SUMMARY | 2024-12-08 14:11 | XMS_ITS | Encounter Summary ---
Author Organization [facility] Address [address] [place] [address] [place] [address] Phone Care Team Providers Care Play Writer Name Role Phone Emely Cid MD Unavailable Bravo Coulter MD, [place] Unavailable [phone] Melissa Mendez MD Unavailable Conrado De Luna MD Unavailable [phone] Manpreet Cali CNP Unavailable Derek Webster MD Unavailable [phone] Emely Cid MD Primary Care Provider Emely Cid MD Primary Care Provider Encounter Details Date Type Department Care Team (Late st Contact Info) Description 01/21/2017 Transcribe Orders [facility] [address] [address] Lisandro Forbes MD [email or web address] Chronic diarrhea (Primary Dx) Social History Tobacco Use Types [...] on file documented as of this encounter Procedures Procedure Name Priority Date/Time Associated Diagnosis Comments CBC Routine 01/21/2017 1:51 PM EST Chronic diarrhea C-REACTIVE PROTEIN Routine 01/21/2017 1: 51 PM EST Chronic diarrhea documented in this encounter Results * C-Reactive Protein (01/21/2017 1:51 PM EST) C REACTIVE PROTEIN 0.2 0 - 0.5 mg/L [facility] Blood 01/21/2017 1:51 PM EST 01/21/2017 1:56 PM EST Lisandro Forbes MD LAB BLOOD ORDERABLES Final Result [address] [address] * CBC (01/21/2017 1:51 PM EST) WBC 8.00 3.40 - 11.20 K/uL [facility] RBC 5.02 4.50 - 5.50 M/uL [facility] HGB 15.7 13.0 - 17.0 g/dL [facility] HCT 44.6 40.0 - 51.0 % [facility] PLT 266 130 - 400 K/uL [facility] MCV 88.8 79.0 - 98.0 fL [facility] MCH 31.3 27.0 - 34.8 pg [facility] MCHC 35.2 31.5 - 36.0 g/dL [facility] RDW 12.9 10.8 - 14.6 % [facility] MPV 9.5 9.4 - 12.4 fl [facility] NRBC 0.00 /100 WBCs [facility] ABSOLUTE NRBC 0.00 K/uL [facility] Blood 01/21/2017 1:51 PM EST 01/21/2017 1:56 PM EST Lisandro Forbes MD LAB BLOOD ORDERABLES Final Result [facility] [address] [place] [address] documented in this encounter Visit Diagnoses Diagnosis Chronic diarrhea- Primary Diarrhea documented in this encounter Care Teams Play Writer Relationship Specialty Start Date End Date Emely Cid MD [email or web address] PCP - General 01/21/17 02/25/23 Emely Cid MD [address] [place] [phone] [email or web address] PCP - General Family Medicine 02/26/23 Emely Cid MD Historical LMR Provider 01/02/17 Bravo Coulter MD, MS [address] [place] [address] [email or web address] Historical LMR Provider 01/02/17 03/24/21 Melissa Mendez MD [address] [place] [address] Historical LMR Provider 01/02/17 Conrado De Luna MD 22 [facility], [address] [address] [email or web address] Historical LMR Provider 01/02/17 03/24/21 Manpreet Cali, ELECTRIC TRANSFER OPERATOR [address] [address] [email or web address] Historical LMR Provider 01/02/17 03/24/21 Derek Webster MD [address] [place] [address] [email or web address] Historical LMR Provider 01/02/17 03/24/21 documented as of this encounter Additional Source Comments The information contained in this document represents components of the legal health record. It is not the complete legal health record.[facility]
--- OUTSIDE RECORDS SUMMARY | 2024-12-08 14:11 | XMS_ITS | Encounter Summary ---
Author Organization [facility] Address [address] [place] [address] [place] [address] Phone Care Team Providers Care Pipe Inspector Name Role Phone Emely Cid MD Unavailable Bravo Coulter MD, [place] Unavailable Melissa Mendez MD Unavailable [phone] Conrado De Luna MD Unavailable [phone] Manpreet Cali CNP Unavailable [phone] Derek Webster MD Unavailable [phone] Emely Cid MD Primary Care Provider [phone] Emely Cid MD Primary Care Provider [phone] Encounter Details Date Type Department Care Team (Late st Contact Info) Description 08/26/2017 Ancillary Orders Virtual Department [address] [place] [address] Rosalia Mcclelland MD [facility], [address] [place] [address] [email or web address] Social History Tobacco Use Types Packs/Day Years [...] documented as of this encounter Results * US Kidneys (10/01/2017 9:14 AM EDT) Anatomical Region Laterality Modality Abdomen, Kidney Ultrasound 10/01/2017 9:28 AM EDT Impressions 10/02/2017 12:05 AM EDT Chronic right upper pole cyst is equivocally larger and now appears to have peripheral calcifications. As there has been a change in the appearance, recommend renal CT to assess for suspicious features. Otherwise no hydronephrosis or nephrolithiasis on either side. POS - [id number] Edited by: Jessy Wheeler on 10/01/2017 9:40 AM Narrative 10/02/2017 12:05 AM EDT COMPARISON: 07/19/2016, CT abdomen 06/02/2015 FINDINGS: Kidneys are within normal limits for size measuring 12.2 x 5.3 cm on the right and 11.3 x 5.6 cm on the left. Cortical thickness and echogenicity are within normal limits. No hydronephrosis. On the right, there is a 1.8 x 1.7 x 0.9 cm cyst which may be larger than on the prior exam where it measured 1.8 x 1.4 x 0.8 cm versus variant in measurement secondary to technique. There are new rounded echogenicities along the periphery of the lesion, a few of which appear to have twinkle artifact. These probably represent calcifications. On the left, no focal lesion or shadowing stone. Procedure Note Viet Joel MD - 10/02/2017 COMPARISON: 07/19/2016, CT abdomen 06/02/2015 FINDINGS: Kidneys are within normal limits for size measuring 12.2 x 5.3 cm on theright and 11.3 x 5.6 cm on the left. Cortical thickness and echogenicityare within normal limits. No hydronephrosis. On the right, there is a 1.8 x 1.7 x 0.9 cm cyst which may be larger thanon the prior exam where it measured 1.8 x 1.4 x 0.8 cm versus variant inmeasurement secondary to technique. There are new rounded echogenicitiesalong the periphery of the lesion, a few of which appear to have twinkleartifact. These probably represent calcifications. On the left, no focal lesion or shadowing stone. IMPRESSION: Chronic right upper pole cyst is equivocally larger and now appears tohave peripheral calcifications. As there has been a change in theappearance, recommend renal CT to assess for suspicious features. Otherwise no hydronephrosis or nephrolithiasis on either side. POS - [id number] Edited by: Jessy Wheeler on 10/01/2017 9:40 AM Rosalia Mcclelland MD [facility] Final Re sult documented in this encounter Visit Diagnoses Diagnosis Kidney stone Calculus of kidney Kidney stone Calculus of kidney documented in this encounter Care Teams Pipe Inspector Relationship Specialty Start Date End Date Emely Cid MD PCP - General 01/21/17 02/25/23 Emely Cid MD [address] [place] [phone] [email or web address] PCP - General Family Medicine 02/26/23 Emely Cid MD Historical LMR Provider 01/02/17 Bravo Coulter MD, MS [address] [place] [address] Historical LMR Provider 01/02/17 03/24/21 Melissa Mendez MD [address] [place] [address] [place] [address] [email or web address] Historical LMR Provider 01/02/17 Conrado De Luna MD [address] [facility], [address] [place] [address] Historical LMR Provider 01/02/17 03/24/21 Manpreet Cali PHYSICAL DAMAGE APPRAISER [address] [facility], [address] [place] [address] [email or web address] Historical LMR Provider 01/02/17 03/24/21 Derek Webster MD [address] [place] [address] [email or web address] Historical LMR Provider 01/02/17 03/24/21 documented as of this encounter Additional Source Comments The information contained in this document represents components of the legal health record. It is not the complete legal health record.[facility]
--- OUTSIDE RECORDS SUMMARY | 2024-12-08 14:11 | XMS_ITS | Encounter Summary ---
Author Organization [facility] Address [address] [place] [address] Phone Care Team Providers Care Parenting Skills Instructor Name Role Phone Emely Cid MD Unavailable [phone] Emely Cid MD Primary Care Provider [phone] Emely Cid MD Primary Care Provider [phone] Encounter Details Date Type Department Care Team (Late st Contact Info) Description 10/10/2021 Procedure Pass [facility], Ct Scan - [address] [address] Social History Tobacco Use Types Packs/Day Years [...] Date of Assessment Author No Risk Indicated 10/10/2021 4:39 PM EDT Seda Fox RN * Geary Suicide Severity Rating Scale (Screener/Recent Self-Report) Question Answer Date of Assessment Author 1. Wish to be (Past 1 Month) No 10/10/2021 4:39 PM EDT Brett Conrad RN 2. Non-Specific Active Suicidal Thoughts (Past 1 Month) No 10/10/2021 4:39 PM EDT Brett Conrad RN 6. Suicidal Behavior (Lifetime) No 10/10/2021 4:39 PM EDT Brett Conrad RN documented as of this encounter Plan of Treatment Not on file documented as of this encounter Visit Diagnoses Not on filedocumented in this encounter Care Teams Parenting Skills Instructor Relationship Specialty Start Date End Date Emely Cid MD [email or web address] PCP - General 01/21/17 02/25/23 Emely Cid MD [address] [place] [phone] [email or web address] PCP - General Family Medicine 02/26/23 Emely Cid MD [email or web address] Historical LMR Provider 01/02/17 documented as of this encounter Additional Source Comments The information contained in this document represents components of the legal health record. It is not the complete legal health record.[facility]
--- OUTSIDE RECORDS SUMMARY | 2024-12-08 14:11 | XMS_ITS | Encounter Summary ---
Author Organization [facility] Address [address] [place] [address] Phone Care Team Providers Care Visiting Nurse Name Role Phone Emely Cid MD Unavailable [phone] Emely Cid MD Primary Care Provider [phone] Emely Cid MD Primary Care Provider [phone] Encounter Details Date Type Department Care Team (Late st Contact Info) Description 10/10/2021 Procedure Pass [facility], Ct Scan - [address] [address] Social History Tobacco Use Types Packs/Day Years [...] 4:39 PM EDT Seda Fox RN * Wilkinson Suicide Severity Rating Scale (Screener/Recent Self-Report) Question [...] on filedocumented in this encounter Care Teams Visiting Nurse Relationship Specialty Start Date End Date Emely Cid MD [email or web address] PCP - General 01/21/17 02/25/23 Emely Cid MD [address] [place] [phone] [email or web address] PCP - General Family Medicine 02/26/23 Emely Cid MD [email or web address] Historical LMR Provider 01/02/17 documented as of this encounter Additional Source Comments The information contained in this document represents components of the legal health record. It is not the complete legal health record.[facility]
--- OUTSIDE RECORDS SUMMARY | 2024-12-08 14:11 | XMS_ITS | Encounter Summary ---
Author Organization [facility] Address [facility] [employer] [facility] [address] [place] [address] Phone Care Team Providers Care Laborer Bituminous Paving Name Role Phone Emely Cid MD Unavailable [phone] Bravo Coulter MD, [place] Unavailable [phone] Melissa Mendez MD Unavailable [phone] Conrado De Luna MD Unavailable [phone] Manpreet Cali CNP Unavailable [phone] Derek Webster MD Unavailable [phone] Emely Cid MD Primary Care Provider Emely Cid MD Primary Care Provider Encounter Details Date Type Department Care Team (Late st Contact Info) Description 02/03/2017 Procedure Pass [facility], [address] [address] Social History Tobacco Use Types Packs/Day Years [...] - Inhaled Oxygen Concentration - - Weight 81.6 kg (180 lb) 02/05/2017 6:19 PM EST Height 160 cm (5' 3 ) 02/05/2017 6:19 PM EST Body Mass Index 31.89 02/05/2017 6:19 PM EST documented in this encounter Plan of Treatment Not on file documented as of this encounter Visit Diagnoses Not on filedocumented in this encounter Care Teams Laborer Bituminous Paving Relationship Specialty Start Date End Date Emely Cid MD PCP - General 01/21/17 02/25/23 Emely Cid MD [address] [place] [phone] [email or web address] PCP - General Family Medicine 02/26/23 Emely Cid MD Historical LMR Provider 01/02/17 Bravo Coulter MD, MS [address] [place] [address] [email or web address] Historical LMR Provider 01/02/17 03/24/21 Melissa Mendez MD [address] [place] [address] Historical LMR Provider 01/02/17 Conrado De Luna MD 22 [facility], [facility] [address] [place] [address] Historical LMR Provider 01/02/17 03/24/21 Manpreet Cali CNP 15 [facility], [address] [place] [address] [email or web address] Historical LMR Provider 01/02/17 03/24/21 Derek Webster MD [address] [address] [email or web address] Historical LMR Provider 01/02/17 03/24/21 documented as of this encounter Additional Source Comments The information contained in this document represents components of the legal health record. It is not the complete legal health record.[facility]
--- OUTSIDE RECORDS SUMMARY | 2024-12-08 14:11 | XMS_ITS | Encounter Summary ---
Author Organization [facility] Address [address] [place] [address] [place] [address] Phone Care Team Providers Care Professor Of Graphic Design Name Role Phone Emely Cid MD Unavailable [phone] Bravo Coulter MD, [place] Unavailable [phone] Melissa Mendez MD Unavailable [phone] Conrado De Luna MD Unavailable [phone] Manpreet Cali CNP Unavailable [phone] Derek Webster MD Unavailable [phone] Emely Cid MD Primary Care Provider [phone] Emely Cid MD Primary Care Provider [phone] Reason for Referral * MRI/CAT Scan - Closed Specialty Diagnoses / [facility] Diagnoses Abnormal findings on diagnostic imaging of other specified body structures Procedures CT Chest Emely Cid MD Phone: tel: fax: mailto: Referral ID Status Reason Start Date Expiration Date Visits Re quested Visits Authorized [id number] Closed 05/08/2018 07/07/2018 1 1 Encounter Details Date Type Department Care Team (Late st Contact Info) Description 05/08/2018 Ancillary Orders Virtual Department [address] [place] [address] Emely Cid MD [address] [place] [phone] [email or web address] Abnormal findings on diagnostic imaging of other specified body structures Social History Tobacco Use Types Packs/Day Years [...] as of this encounter Results * CT CHEST WITHOUT CONTRAST (05/20/2018 1:51 PM EST) Anatomical Region Laterality Modality Chest Computed Tomogra phy 05/20/2018 3:00 PM EST Impressions 05/20/2018 3:14 PM EST 1. Previously seen area of consolidation in the medial aspect of the right lower lobes no longer seen and likely represent area of atelectasis. 2. Respiratory motion limits evaluation for small lung nodules. There is 1 or 2 lung nodules measuring up to 2 mm as described above. 3. Stable ectasia of the ascending thoracic aorta measuring 4.1 cm. Based on Fleischner Criteria 2017, new multiple solid pulmonary nodules measuring <6 mm in low risk patients do not require further imaging studies. However, patients with a history of smoking/asbestos/radiation exposure or a 1st degree relative with lung cancer should consider having a follow-up non-contrast CT in 1 year. If unchanged, no further follow-up studies would be indicated. Note that patients with an infectious process, personal history of cancer, and those with advanced age/co-morbidities may require adjustments to these recommendations. TOTAL CTDIvol: 8.6 mGy POS - [id number] Narrative 05/20/2018 3:14 PM EST EXAM: CT CHEST WITHOUT CONTRAST CT CHEST WITHOUT INTRAVENOUS CONTRAST COMPARISON: Chest CT on February 10, 2018 describes rounded 2 cm airspace opacity in the medial aspect of the right lower lobe. Follow-up chest CT was recommended. TECHNIQUE: CT scan of the chest was performed without intravenous contrast. Coronal and sagittal reformatted images were generated, together with axial maximum intensity projection images of the lungs. Automated exposure control utilized. FINDINGS: Absence of intravenous contrast decreases sensitivity for detection of lymphadenopathy and vascular pathology. LUNGS AND LARGE AIRWAYS: Central airways are patent. No bronchiectasis. Minimal biapical scarring. No confluent lung consolidations. Previously seen consolidation in the medial aspect of the right lower lobe is no longer seen and likely represented an area of atelectasis. Respiratory motion limits evaluation for small lung nodules. There is a 2 mm lung nodule in the left lung apex (5:40), probably better seen on today's study given better lung aeration. Possible additional 2 mm lung nodule in the anterior aspect of the right upper lobe (5:92), difficult to evaluate due to respiratory motion. PLEURA: No pleural effusion. No pneumothorax. MEDIASTINUM AND JOSH: No adenopathy or masses. Visualized thyroid is unremarkable. Esophagus appear unremarkable. HEART AND VESSELS: Heart is normal in size. No pericardial effusion. Redemonstration of ectasia of the ascending thoracic aorta measuring 4.1 cm in caliber. Minimal atherosclerotic calcifications at the level of the aortic arch. Pulmonary trunk is normal in caliber. UPPER ABDOMEN: Postcholecystectomy changes. Stable nonobstructing right renal stones. BONES AND SOFT TISSUES: Soft tissues are grossly unremarkable. No acute or suspicious osseous abnormalities. Procedure Note Adam Blum MD - 05/20/2018 EXAM: CT CHEST WITHOUT CONTRAST CT CHEST WITHOUT INTRAVENOUS CONTRAST COMPARISON: Chest CT on February 10, 2018 describes rounded 2 cm airspaceopacity in the medial aspect of the right lower lobe. Follow-up chest CTwas recommended. TECHNIQUE: CT scan of the chest was performed without intravenouscontrast. Coronal and sagittal reformatted images were generated,together with axial maximum intensity projection images of the lungs.Automated exposure control utilized. FINDINGS: Absence of intravenous contrast decreases sensitivity for detection oflymphadenopathy and vascular pathology. LUNGS AND LARGE AIRWAYS: Central airways are patent. No bronchiectasis.Minimal biapical scarring. No confluent lung consolidations. Previouslyseen consolidation in the medial aspect of the right lower lobe is nolonger seen and likely represented an area of atelectasis. Respiratorymotion limits evaluation for small lung nodules. There is a 2 mm lungnodule in the left lung apex (5:40), probably better seen on today's studygiven better lung aeration. Possible additional 2 mm lung nodule in theanterior aspect of the right upper lobe (5:92), difficult to evaluate dueto respiratory motion. PLEURA: No pleural effusion. No pneumothorax. MEDIASTINUM AND JOSH: No adenopathy or masses. Visualized thyroid isunremarkable. Esophagus appear unremarkable. HEART AND VESSELS: Heart is normal in size. No pericardial effusion.Redemonstration of ectasia of the ascending thoracic aorta measuring 4.1cm in caliber. Minimal atherosclerotic calcifications at the level of theaortic arch. Pulmonary trunk is normal in caliber. UPPER ABDOMEN: Postcholecystectomy changes. Stable nonobstructing rightrenal stones. BONES AND SOFT TISSUES: Soft tissues are grossly unremarkable. No acuteor suspicious osseous abnormalities. IMPRESSION: 1. Previously seen area of consolidation in the medial aspect of theright lower lobes no longer seen and likely represent area ofatelectasis. 2. Respiratory motion limits evaluation for small lung nodules. There is1 or 2 lung nodules measuring up to 2 mm as described above. 3. Stable ectasia of the ascending thoracic aorta measuring 4.1 cm. Based on Fleischner Criteria 2017, new multiple solid pulmonary nodulesmeasuring <6 mm in low risk patients do not require further imagingstudies. However, patients with a history of smoking/asbestos/radiationexposure or a 1st degree relative with lung cancer should consider havinga follow-up non-contrast CT in 1 year. If unchanged, no further follow-upstudies would be indicated. Note that patients with an infectiousprocess, personal history of cancer, and those with advancedage/co-morbidities may require adjustments to these recommendations. TOTAL CTDIvol: 8.6 mGy POS - [id number] Emely Cid MD IMG CT CHEST Final Resul t documented in this encounter Visit Diagnoses Diagnosis Abnormal findings on diagnostic imaging of other specified body structures Abnormal findings on diagnostic imaging of other specified body structures documented in this encounter Care Teams Professor Of Graphic Design Relationship Specialty Start Date End Date Emely Cid MD PCP - General 01/21/17 02/25/23 Emely Cid MD [address] [place] [phone] [email or web address] PCP - General Family Medicine 02/26/23 Emely Cid MD Historical LMR Provider 01/02/17 Bravo Coulter MD, MS [address] [place] [address] Historical LMR Provider 01/02/17 03/24/21 Melissa Mendez MD [address] [place] [address] Historical LMR Provider 01/02/17 Conrado De Luna MD [address] [place] [address], [facility] [address] [place] [address] Historical LMR Provider 01/02/17 03/24/21 Manpreet Cali, TRANSMISSION ASSEMBLER [address] [place] [address] Historical LMR Provider 01/02/17 03/24/21 Derek Webster MD [address] [address] [email or web address] Historical LMR Provider 01/02/17 03/24/21 documented as of this encounter Additional Source Comments The information contained in this document represents components of the legal health record. It is not the complete legal health record.[facility]
--- OUTSIDE RECORDS SUMMARY | 2024-12-08 14:11 | XMS_ITS | Clinical Summary ---
Author Organization [facility] Address [address] [place] [id number] Phone Care Team Providers Care Senior Hr Generalist Name Role Phone Emely Cid MD Unavailable [phone] Emely Cid MD Primary Care Provider Allergies Active Allergy Reactions Criticality Noted Date Comments Allergen Aif-Nzhra-Zpygq Bee Anaphylaxis High 12/06/2020 Atorvastatin Myalgia 12/06/2020 Nebivolol Fatigue Medium 12/06/2020 Celecoxib 03/20/2021 Meperidine 02/10/2018 Desipramine Urinary Retention Medium 12/06/2020 Duloxetine 04/17/2024 Fluticasone 12/06/2020 Fluticasone Propion-Salmeterol 12/13/2022 Other Reaction(s): headaches Other reaction(s): headaches Gabapentin 12/06/2020 Hydrochlorothiazide 12/06/2020 Melatonin 12/13/2022 Other Reaction(s): migraines Other reaction(s): migraines Meloxicam Hives Medium 12/06/2020 Morphine 02/10/2018 Nortriptyline 12/06/2020 Penicillins Anaphylaxis High 02/10/2018 Oxycodone-Acetaminophen 12/06/2020 Topiramate 12/06/2020 Venom-Honey Bee Anaphylaxis High 12/13/2022 Medications allopurinol (ZYLOPRIM) 300 MG tablet Take 300 mg by mouth daily. Active rosuvastatin (CRESTOR) 20 MG tablet Take 20 mg by mouth nightly at bedtime. Active verapamiL (VERELAN PM) 100 mg 24 hr capsule Take 100 mg by mouth nightly at bedtime. 11/02/2020 Active busPIRone (BUSPAR) 7.5 MG tablet Take 7.5 mg by mouth nightly at bedtime. Take one tablet daily Active coenzyme Q10 200 mg capsule Take 200 mg by mouth daily. Active albuterol 90 mcg/actuation inhaler Inhale 2 puffs into the lungs every 4 (four) hours as needed. ProAir HFA Active aspirin 81 MG EC tablet Take 1 tablet (81 mg total) by mouth daily. 30 tablet 05/01/2021 Active Active Problems Problem Noted Date Diagnosed Date Thyroid nodule 05/01/2021 Acute CVA (cerebrovascular accident) 04/30/2021 Chronic low back pain 03/27/2021 Overview (03/27/2021): 60 you male with hx of low back pain since early Recently worsened with some historical features of inflammatory back pain (nocturnal pain, AM stiffness which improved with activity) Only mild lumbar spine degenerative changes by XR, Normal XR SI Joints - Labs and XR as above - MRI as above to evaluate for any sacroiliitis - Trial of celebrex 100mg BID, AE discussed in detail - Continue PT and PSSP f/u Completed PT without improvement He is intolerant to NSAIDS, Gabapentin and Lyrica in the past Will hold on new meds until workup completes Consider trial of Elavil or Cymbalta Will try to obtain MRI SI joints Assessment & Plan (03/27/2021 7:15 AM EST): 60 you male with hx of low back pain since early s Recently worsened with some historical features of inflammatory back pain (nocturnal pain, AM stiffness which improved with activity) Only mild lumbar spine degenerative changes by XR, Normal XR SI Joints - Labs and XR as above - MRI as above to evaluate for any sacroiliitis - Trial of celebrex 100mg BID, AE discussed in detail - Continue PT and PSSP f/u Completed PT without improvement He is intolerant to NSAIDS, Gabapentin and Lyrica in the past Will hold on new meds until workup completes Consider trial of Elavil or Cymbalta Will try to obtain MRI SI joints Aortic aneurysm 02/10/2018 Assessment & Plan (02/10/2018 4:18 PM EST): Known 4.2 thoracic aneurism, stable in size compared to previous, no evidence of dissection Follows with a pediatric neuropsychologist in [place] Exercise-induced asthma 02/10/2018 Assessment & Plan (02/10/2018 4:01 PM EST): Was apparently diagnosed with this by Dr Oswald, then saw Dr. Coulter in follow-up who disagreed with the diagnosis. He states that he also gets more severe colds when he gets sick, no wheezing this week. Hyperlipidemia 02/10/2018 Assessment & Plan (02/10/2018 4:02 PM EST): Will hold statin in the setting of acute transaminitis Resolved Problems Problem Noted Date Diagnosed Date Resolved Date RUQ pain 02/10/2018 02/12/2018 Assessment & Plan (02/11/2018 4:46 PM EST): The character and course of the pain and sudden onset offset suggests a stone but he did not have stones in the past. We will need to obtain his outpatient LFTs from [facility] pending, then we will feed low-fat diet Pneumonia due to infectious organism 02/10/2018 02/12/2018 Assessment & Plan (02/10/2018 4:16 PM EST): Diagnosed with probable walking pneumonia and sinusitis at PCPs office 2 days ago, started azithromycin yesterday and then had the sudden onset of right upper quadrant pain along with a transaminitis CT of the chest shows a 2 cm airspace opacity of the right lower lobe Influenza negative Will prescribe as needed nebs, Levaquin. Culture sputum, urinary antigens May also have an element of sinusitis as he had some facial pain which resolved after his first dose of azithromycin Hypoxia 02/10/2018 02/12/2018 Assessment & Plan (02/10/2018 4:14 PM EST): Required 2 L of O2 after narcotic pain medication was given. He has been known to be sensitive in the past to narcotics, will try to use Toradol instead CTPA negative for PE Nausea & vomiting 02/10/2018 02/12/2018 Assessment & Plan (02/10/2018 4:12 PM EST): Started after narcotic pain medication was given, this is not unusual for him, will try to use nonnarcotic modalities Loose stools 02/10/2018 02/12/2018 Assessment & Plan (02/10/2018 4:17 PM EST): Chronic loose stool since his cholecystectomy several years ago, has followed up with GI Encounters Date Type Department Care Team Description 09/13/2024 8:11 PM EDT - 09/13/2024 11:45 PM EDT Emergency [facility] [address] [place] [address] Brannon Mesa MD Savage, Justin G, DO Discharge Disposition: Home or Self Care 09/13/2024 Procedure Pass [facility], Ct Scan - [facility] [address] [place] [address] from Last 3 Months Immunizations Immunization Administration Dates Next Due COVID-19 (Pre-01/06) Pfizer Vaccine, mRNA, PF 07/30/2020,07/09/2020 INFLUENZA, SPLIT VIRUS, TRIVALENT PF 01/15/2015, 12/25/2012 INFLUENZA, SPLIT VIRUS, TRIV ALENT W/ PRESERVATIVE IM 12/22/2013 Influenza Quadrivalent Preservative Free IM 11/15,11/01/2016,01/04/2016 Influenza Quadrivalent w/ Preservative IM 2019,11/24/2018,10/29/2017 Influenza trivalent preserva tive free intradermal 12/04/2011 Td (adult),2 Lf Tetanus Toxo id, PF, Adsorbed 08/23/2020 Tdap 03/21/2010 Zoster recombinant 10/24/2019,05/17/2019 Family History Medical History Relation Comments Heart disease Brother Dementia Father Other Father Diverticular dis ease and colitis. Coronary artery disease Mother Heart disease Mother Hyperlipidemia Mother Other Mother Heart valve repl acement and PPM Relation Status Comments Brother Father Mother Social History Tobacco Use Types Packs/Day Years [...] Orientation Straight 02/10/2018 9: 05 AM EST Last Filed Vital Signs Vital Sign Reading Time Taken Comments Blood Pressure 124/60 09/13/2024 11:16 PM EDT Pulse 54 09/13/2024 11:16 PM EDT Temperature 36.4 C (97.5 F) 09/13/2024 11:36 PM EDT Respiratory Rate 18 09/13/2024 11:16 PM EDT Oxygen Saturation 100% 09/13/2024 11:16 PM EDT Inhaled Oxygen Concentration - - Weight 88.5 kg (195 lb) 09/13/2024 3:21 PM EDT Height 157.5 cm (5' 2 ) 09/13/2024 3:21 PM EDT Body Mass Index 35.67 09/13/2024 3:21 PM EDT Plan of Treatment Health Maintenance Due Date Last Done Comments DEPRESSION SCREENING 1974 SMOKING Hx and SMOKELESS TOBACCO SCREENING 1975 HIV ONE-TIME SCREENING (18-65 YEARS) 1980 PNEUMOCOCCAL VACCINES (50+ years) (1 of 2 - PCV) 1981 COLOGUARD 2007 COLONOSCOPY 2007 COLORECTAL CANCER SCREENING 2007 FIT TEST 2007 FOBT 2007 SIGMOIDOSCOPY 2007 VIRTUAL COLONOSCOPY 2007 RSV VACCINE (1 - Risk 60-74 years 1-dose series) 2022 INFLUENZA VACCINE (#1) 2024 , 11/17/2019, 11/24/2018, Additional history exists COVID-19 VACCINE ( season) 2024 03/07/2021, 07/30/2020, 07/09/2020 CREATININE LEVEL 09/13/2025 09/13/2024, , 02/26/2023, Additional history exists SCREENING FOR DIABETES 09/14/2027 09/13/2024 Adult Td,Tdap Booster 08/23/2030 08/23/2020, 011 HEPATITIS C SCREENING Completed 02/12/2018, 018 ZOSTER VACCINES Completed 10/24/2019, 05/17/2019 HEPATITIS A VACCINES Aged Out No long er eligible based on patient's age to complete this topic HIB VACCINES Aged Out No longer eligi ble based on patient's age to complete this topic MENINGOCOCCAL VACCINES (ACWY) Aged Out No longer eligible based on patient's age to complete this topic MENINGOCOCCAL VACCINES (B) Aged Out N o longer eligible based on patient's age to complete this topic Medical Devices Not on file Procedures Procedure Name Priority Date/Time Associated Diagnosis Comments CT ABDOMEN/PELVIS WITH CONTRAST Routine 09/13/2024 9:36 PM EDT URINALYSIS W/REFLEX URINE CULTURE STAT 09/13/2024 5:54 PM EDT LIPASE STAT 09/13/2024 3:30 PM EDT LFTS (HEPATIC PANEL) STAT 09/13/2024 3:30 PM EDT BASIC METABOLIC PANEL STAT 09/13/2024 3:30 PM EDT CBC AND DIFFERENTIAL STAT 09/13/2024 3:30 PM EDT HEPATITIS C ANTIBODY, QUALITATIVE Routine 02/12/2018 5:33 AM EST from Last 3 Months or Most Recently Relevant to Health Maintenance Results * CT ABDOMEN/PELVIS WITH CONTRAST (09/13/2024 9:36 PM EDT) Anatomical Region Laterality Modality Abdomen, Pelvis Computed Tomogra phy 09/13/2024 11:0 1 PM EDT Impressions 09/13/2024 11:03 PM EDT No acute abnormality within the abdomen or pelvis. Specifically no appendicitis. Narrative 09/13/2024 11:[address] ABDOMEN/PELVIS WITH CONTRAST Referring clinician's provided indication for this examination in Epic: * RLQ abdominal pain, appendicitis suspected (Age >= 14y) TECHNIQUE: CT of the abdomen and pelvis was performed after administration of intravenous contrast using tailored dose modulation techniques. Images were reconstructed in the axial, coronal, and sagittal planes. COMPARISON: CT ABDOMEN/PELVIS WITHOUT CONTRAST FINDINGS: Lower Chest: No consolidation or effusions. Liver: No focal lesions. Biliary: Prior cholecystectomy. No biliary ductal dilatation. Spleen: Normal. No splenomegaly. Pancreas: No ductal dilatation, peripancreatic fluid, or stranding. Adrenal Glands: No nodules. Kidneys/Ureters: 6 mm nonobstructing right renal stone. Left hydronephrosis or hydroureter. Bowel: Normal appendix. No bowel obstruction or wall thickening. Scattered colonic diverticula without diverticulitis. Peritoneum/Retroperitoneum: No pneumoperitoneum or fluid. Lymph Nodes: No lymphadenopathy. Pelvic Organs/Bladder: No mass. Vessels: No abdominal aortic aneurysm. Atherosclerosis. Bones/Soft Tissues: No destructive osseous lesions. Procedure Note Stephanie Song MD - 09/13/2024 CT ABDOMEN/PELVIS WITH CONTRAST Referring clinician's provided indication for this examination in Epic: *RLQ abdominal pain, appendicitis suspected (Age >= 14y) TECHNIQUE: CT of the abdomen and pelvis was performed after administrationof intravenous contrast using tailored dose modulation techniques. Imageswere reconstructed in the axial, coronal, and sagittal planes. COMPARISON: CT ABDOMEN/PELVIS WITHOUT CONTRAST FINDINGS: Lower Chest: No consolidation or effusions. Liver: No focal lesions. Biliary: Prior cholecystectomy. No biliary ductal dilatation. Spleen: Normal. No splenomegaly. Pancreas: No ductal dilatation, peripancreatic fluid, or stranding. Adrenal Glands: No nodules. Kidneys/Ureters: 6 mm nonobstructing right renal stone. Lefthydronephrosis or hydroureter. Bowel: Normal appendix. No bowel obstruction or wall thickening. Scatteredcolonic diverticula without diverticulitis. Peritoneum/Retroperitoneum: No pneumoperitoneum or fluid. Lymph Nodes: No lymphadenopathy. Pelvic Organs/Bladder: No mass. Vessels: No abdominal aortic aneurysm. Atherosclerosis. Bones/Soft Tissues: No destructive osseous lesions. IMPRESSION: No acute abnormality within the abdomen or pelvis. Specifically noappendicitis. us Emely Hernandez PA-C IMG CT ABD/PELVI S Final Result * Urinalysis w/reflex Urine Culture (09/13/2024 5:54 PM EDT) COLOR Yellow Yellow [facility] CLARITY Clear [facility] GLUCOSE Negative Negative [facility] BILI Negative Negative [facility] KETONES Negative Negative [facility] SPECIFIC GRAVITY >1.030 1.005 - 1.030 [facility] BLOOD Negative Negative [facility] PH 6.0 5.0 - 8.0 [facility] Protein-UA Negative Negative [facility] NITRITE Negative Negative [facility] Leukocyte esterase, ur Negative Negative [facility] Urine (Urine) 09/13/2024 5:5 4 PM EDT 09/13/2024 5:59 PM EDT us Brannon Mesa MD URINE ORDERABLES Final R esult [address] [address] * (ABNORMAL) LFTs (hepatic panel) (09/13/2024 3:30 PM EDT) Pathologist [facility] ALKALINE PHOSPHATASE 119(H) 39 - 117 U/L [facility] TOTAL BILIRUBIN 0.5 0.0 - 1.2 mg/dL [facility] DIRECT BILIRUBIN 0.2 0.0 - 0.2 mg/dL [facility] Bilirubin (Indirect) 0.3 0 - 1.5 mg/dL [facility] AST 19 0 - 37 U/L [facility] ALT 22 0 - 40 U/L [facility] TOTAL PROTEIN 6.8 6.5 - 8.0 g/dL [facility] ALBUMIN 4.4 3.9 - 4.8 g/dL [facility] GLOBULIN 2.4 1 - 4.8 g/dL [facility] A/G Ratio 1.83 1.00 - 4.80 RATIO [facility] Blood 09/13/2024 3:30 PM EDT 09/13/2024 3:37 PM EDT us Brannon Mesa MD LAB BLOOD ORDERABLES Fin al Result [address] [address] * (ABNORMAL) CBC and differential (09/13/2024 3:30 PM EDT) Pathologist [facility] WBC 9.49 4.00 - 11.00 K/uL [facility] RBC 4.79 4.50 - 5.90 M/uL [facility] HGB 15.1 13.5 - 17.5 g/dL [facility] HCT 44.5 41.0 - 53.0 % [facility] PLT 223 150 - 450 K/uL [facility] MCV 92.9 80.0 - 100.0 fL [facility] MCH 31.5(H) 27.0 - 31.0 pg [facility] MCHC 33.9 32.0 - 36.0 g/dL [facility] RDW 13.2 11.5 - 14.5 % [facility] MPV 8.9 8.4 - 12.0 fL [facility] NRBC 0.00 0.00 /100 WBCs [facility] ABSOLUTE NRBC 0.00 0.00 K/uL [facility] DIFF METHOD Auto [facility] NEUTS 65.8 48.0 - 76.0 % [facility] LYMPHS 21.6 18.0 - 41.0 % [facility] MONOS 8.2 4.0 - 11.0 % [facility] EOS 3.4 0.0 - 5.0 % [facility] BASOS 0.7 0.0 - 1.5 % [facility] Granulocytes, immature (%) 0.3 0.0 - 0.9 % [facility] ABSOLUTE NEUTS 6.24 1.92 - 7.60 K/uL [facility] ABSOLUTE LYMPHS 2.05 0.72 - 4.10 K/uL [facility] ABSOLUTE MONOS 0.78 0.16 - 1.10 K/uL [facility] ABSOLUTE EOS 0.32 0.00 - 0.50 K/uL [facility] ABSOLUTE BASOS 0.07 0.00 - 0.15 K/uL [facility] Granulocytes, immature 0.03 0.00 - 0.09 K/uL [facility] Blood 09/13/2024 3:30 PM EDT 09/13/2024 3:37 PM EDT us Brannon Mesa MD LAB BLOOD ORDERABLES Fin al Result [address] [address] * Lipase (09/13/2024 3:30 PM EDT) LIPASE 26 16 - 63 U/L [facility] Blood 09/13/2024 3:30 PM EDT 09/13/2024 3:37 PM EDT Brannon Mesa MD LAB BLOOD ORDERABLES Fin al Result Performing Organization Address City/State/[facility] Co de Phone Number [address] [address] * Basic metabolic panel (09/13/2024 3:30 PM EDT) SODIUM 141 133 - 146 mmol/L [facility] CHLORIDE 107 96 - 108 mmol/L [facility] POTASSIUM 4.2 3.3 - 5.1 mmol/L [facility] CO2 24 21 - 35 mmol/L [facility] BUN 17 6 - 19 mg/dL [facility] CREATININE 0.90 0.5 - 1.5 mg/dL [facility] GLUCOSE 89 70 - 99 mg/dL [facility] CALCIUM 9.7 8.4 - 10.3 mg/dL [facility] EGFR 97 >59 mL/min/1.7 3m2 [facility] Comment:Estimated glomerular filtration rate calculated using the CKD-EPI refit equation. ANION GAP 14 10 - 20 mmol/L [facility] Blood 09/13/2024 3:30 PM EDT 09/13/2024 3:37 PM EDT us Brannon Mesa MD LAB BLOOD ORDERABLES Fin al Result Performing Organization Address [facility]/ZIP Co de Phone Number [address] [address] * Hepatitis C antibody, qualitative (02/12/2018 5:33 AM EST) Pathologist [facility] HCV Negative Negative [facility] Comment: This is a screening test and should be confirmed with molecular testing Blood 02/12/2018 5:33 AM EST 02/12/2018 6:11 AM EST us [place] Krishnan MD LAB BLOOD ORDERABLES Final Result Performing Organization Address [facility]/ZIP Co de Phone Number [address] [address] from Last 3 Months or Most Recently Relevant to Health Maintenance Insurance [place]IC[place] PART [place] [facility] [place] & [place] HEALTH MEDICARE PART A & [place] COMPENSATION Advance Directives For more information, please contact: [phone] (9AM - 5PM [facility], Friday-Friday) Documents on File Type Date Recorded 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 Healthcare Proxy 05/02/2021 4:07 PM Healthcare Proxy 02/13/2018 3:57 PM * Full Code (Latest Code Status on File) Date Activated Date Inactivated Comments 04/30/2021 6:21 PM Question Answer Comments Code Status Confirmed With: Patient * Full Code (Presumed) Date Activated Date Inactivated Comments 02/10/2018 5:14 PM 02/12/2018 3:07 PM Healthcare Agents on File Name Relationship Healthcare Agent Relationship Communication Paras Ibrahimoy Spouse .Primary Health Care Agent (Proxy form on file) Care Teams Senior Hr Generalist Relationship Specialty Start Date End Date Emely Cid MD [address] [place] [phone] [email or web address] PCP - General Family Medicine 02/26/23 Emely Cid MD [email or web address] LMR Provider 01/02/17 Additional Source Comments The information contained in this document represents components of the legal health record. It is not the complete legal health record.[facility]
== END 2024-12-08 10:58 | disposition home or self-care (01) ==
LOC: HO.LAB 10:57
PROVIDERS: PCP Family Medicine
DX: I25.10 Atherosclerotic heart disease of native coronary artery without angina pectoris (principal)
CPT/HCPCS: 36415; 80048

== ENCOUNTER 2024-12-14 08:19 | Outpatient (AMB) | payer MEDICARE, MEDICAID, SELFPAY ==
--- NOTE | 2024-12-14 08:24 | A.OFFVIS_ITS ---
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 [employer] Kiln Required: No Accompanied by: Spouse Allergies duloxetine Allergy (Mild, Verified 12/14/24 08:24) Chest Pain hydrochlorothiazide Allergy (Mild, Verified 12/14/24 08:24) Palpitations morphine (Morphine) Allergy (Mild, Verified 12/14/24 08:24) NAUSEA & VOMITING TO NARCOTICS, nausea, vomiting melatonin Allergy (Unknown, Verified 12/14/24 08:24) migraines nebivolol (Bystolic) Allergy (Unknown, Verified 12/14/24 08:24) hypotension nortriptyline Allergy (Unknown, Verified 12/14/24 08:24) dizziness oxycodone (Percocet) Allergy (Unknown, Verified 12/14/24 08:24) nausea,vomiting penicillin V Allergy (Unknown, Verified 12/14/24 08:24) hives topiramate Allergy (Unknown, Verified 12/14/24 08:24) dizziness meperidine (From Demerol) Adverse Reaction (Mild, Verified 12/14/24 08:24) NAUSEA & VOMITING TO NARCOTICS Medication List - Last Reconciled 12/14/24 by Mahogany Townsend MD albuterol sulfate 90 mcg/actuation (ProAir HFA) 1 inh inhalation QID allopurinol 300 mg PO DAILY aspirin 81 mg PO DAILY buspirone 7.5 mg PO BID clotrimazole 1% appl topical BID coenzyme Q10 (Co Q-10) 200 mg PO DAILY cyclobenzaprine 5 mg PO BEDTIME epinephrine IM gabapentin 100 mg PO .qhs 90 days MDD 100mg ketorolac 10 mg PO TID PRN losartan 50 mg PO BID magnesium oxide 400 mg PO BEDTIME meclizine 25 mg PO DAILY PRN methenamine hippurate 1 g PO BID ondansetron HCl 4 mg PO Q8H riboflavin (vitamin B2) 400 mg PO DAILY rosuvastatin 20 mg PO DAILY sennosides (senna) 8.6 - 17.2 mg PO Q OTHER DAY sertraline 150 mg PO DAILY HPI Comments Details: ??64y/o male comes for treatment of migraines with botox. Most frequent reported adverse reactions following injection of botox for chronic migraine include neck pain (9%), headache(5%), eyelid ptosis(4%), migraine(4%), muscular weakness(4%), musculuskeletal stiffness(4%), bronchitis(3%), injection site pain (3%), musculoskeletal pain(3%), myalgia(3%), facial paresis(2%), HTN(2%) and muscle spasms(2%) were discussed in detail. Migraine days prior to botox- 20 How long do the migraines last-2-3 days Intensity of sjatdfjs-5-03 ER visits related to jhoqjhut-2-7 Effectiveness of botox from last two treatment(s)- this is his first treatment Botulinum toxin typeA 200units Lot no [id number] expiration Jan 2027 was diluted with 4 cc of normal saline . Muscles injected- Frontalis 4 sites Procerus 1 site Operational Test Mechanic- 2 sites Temporalis- 8 sites Occipitalis- 6 sites Cervical paraspinals- 4 sites Trapezius- 6 sites- 10 units each 5 units each in 31 site Total use- 185units Discarded-15units [facility] Medical History Chronic migraine with aura Restless legs syndrome (RLS) Snoring Cerebrovascular accident Anxiety Depression Cognitive dysfunction Sleep disorder GERD (gastroesophageal reflux disease) Chronic headaches Kidney stones Thoracic aortic aneurysm PVCs (premature ventricular contractions) CAD (coronary artery disease) Hyperlipidemia Left-sided carotid artery disease CAD (coronary artery disease) Thoracic aortic aneurysm Surgical History History of lithotripsy S/P right knee surgery H/O elbow surgery S/P left knee surgery Hx of cardiac cath (~2012) Family History Father Dementia Mother Heart disease Brother CVD (cardiovascular disease) Social History Alcohol intake: never Patient Tobacco Use Status: Former Tobacco user Tobacco use type: Cigarette Gender identity: Male Review of Systems ENT Reports Normal hearing present Neuro Reports Normal hearing present Physical Exam Vital Signs: Last Vital Signs Pulse 62 09/30/25 08:25 BP 118/80 12/14/24 08:25 Pulse Ox 96 12/14/24 08:25 Oxygen Delivery Method Room Air 12/14/24 08:25 BMI result Body Mass Index 35.9 Const General: cooperative, comfortable and anxious Nutritional Appearance: obese Orientation/consciousness: patient oriented x3 HEENT Head: Yes normal to inspection, Yes normocephalic and Yes atraumatic Eyes Pupils: Equal, round and reactive pupils present Neuro Other: speech is better General: patient oriented x3 and gait normal Cranial nerves: Yes CN's II-XII intact bilaterally, Yes Facial sensation intact/muscles of mastication intact, Yes Equal, round and reactive pupils present, Yes Bilaterally intact EOM present, Yes Nystagmus not present, Yes Normal facial strength present, Yes Midline tongue present, Yes Symmetric palate elevation present, Yes Normal hearing present and Yes Ability to bilaterally elevate shoulders present Gait exam (Neuro): Normal gait present Motor exam (neuro): 5/5 motor strength present throughout and Normal motor muscle tone present throughout Psych Affect: Anxious affect present and Depressed mood present Office Procedures Botulinum toxin Injection 18362 - Migraine Procedure code (CPT) selection complete Office Meds onabotulinumtoxinA 200 unit solution for injection Performing Provider: Mahogany Townsend MD Performing Location: [facility] Administered by: Mahogany Townsend MD on 12/14/24 09:08 Dose Route Admin Location Dispensed Lot Number Expiration Date [facility] Angle Shear Operator 185 unit subcut 200 units [id number] ALLERGAN /BOTOX Total Dispensed Waste 200 units 7.5 % Comments: see HPI Assessment & Plan Assessment & Plan (1) Chronic migraine with aura: Code(s): G43.E09 - Chronic migraine with aura, not intractable, without status migrainosus Category: Medical Qualifiers: Status migrainosus presence: without status migrainosus Intractability: intractable Qualified Code(s): G43.E19 - Chronic migraine with aura, intractable, without status migrainosus (2) Restless legs syndrome (RLS): Code(s): G25.81 - Restless legs syndrome Category: Medical Plan Patinet tolerated the procedure well He will call with any side effects increase gabapentin to 200-300mg qhs Orders: Orders AMB Botulinum toxin Injection Today G43.E19 - Chronic migraine with aura, intractable, without status migrainosus Medications: Changed From gabapentin take one tablet by mouth daily at bedtime. 100 mg PO .qhs 90 days 90 caps 6RF sleep difficulties MDD 100mg G25.81 - Restless legs syndrome, G47.9 - Sleep disorder, unspecified To gabapentin 1-3 caps orally QHS; take one tablet by mouth daily at bedtime. 90 days 270 caps 6RF sleep difficulties G25.81 - Restless legs syndrome, G47.9 - Sleep disorder, unspecified From gabapentin 1-3 caps orally QHS; take one tablet by mouth daily at bedtime. 90 days 270 caps 6RF sleep difficulties G25.81 - Restless legs syndro me, G47.9 - Sleep disorder, unspecified To gabapentin 1-3 caps orally QHS mouth daily at bedtime. 270 caps 6RF sleep difficulties 90 days G25.81 - Restless legs syndrome, G47.9 - Sleep disorder, unspecified Coding Level of Care Code Est Pt Level 1 (09830) Diagnoses Intractable chronic migraine with aura and without status migrainosus G43.E19 Status migrainosus presence: without status migrainosus Intractability: intractable Restless legs syndrome (RLS) G25.81 CPT Codes Botox Injection - Botox 3: 59766 - Migraine ([id number])
[2024-12-14 08:25] VITALS: BP 118/80; PULSE 62; O2SAT 96; BMI 35.9
--- OUTSIDE RECORDS SUMMARY | 2024-12-14 08:35 | XMS_ITS | Encounter Summary ---
Author Organization [facility] Address [address] [place] [address] [place] [address] Phone Care Team Providers Care Full Time Babysitter Name Role Phone Emely Cid MD Unavailable Bravo Coulter MD, [place] Unavailable Melissa Mendez MD Unavailable Conrado De Luna MD Unavailable [phone] Manpreet Cali ORAL SURGERY PHYSICIAN Unavailable [phone] Derek Webster MD Unavailable [phone] Emely Cid MD Primary Care Provider [phone] Emley Cid MD Primary Care Provider Reason for Referral * MRI/CAT Scan - Closed Specialty Diagnoses / Procedures Referred By Zeeshan rick Referred To Contact Radiology Diagnoses Kidney stone Pre-op exam Unspecified renal colic Generalized abdominal pain Procedures CT Abdomen/Pelvis CT Abdomen/Pelvis Rosalia Mcclelland MD Phone: tel: fax: [email or web address] Referral ID Status Reason Start Date Expiration Date Visits Re quested Visits Authorized [id number] Closed 04/14/2019 06/13/2019 1 1 Encounter Details Date Type Department Care Team (Late Contact Info) Description 04/14/2019 Ancillary Orders Virtual Department [address] [place] [address] Rosalia Mcclelland MD [address] [place] [address], [address] [address] [email or web address] Kidney stone; Pre-op exam; Unspecified [...] as of this encounter Plan of Treatment Upcoming Encounters Date Type Department Care Team (Late Contact Info) Description 02/17/2025 2:15 PM EST Office Visit [facility] [address] [place] [address] Unknown, Unknown, MD Contreras, Patricia Goldman, ROXANA [address] [place] [address] documented as of this encounter Results * [...] generalized documented in this encounter Care Teams Full Time Babysitter Relationship Specialty Start Date End Date Emely Cid MD PCP - General 01/21/17 02/25/23 Emely Cid MD [address] [place] [phone] [email or web address] PCP - General Family Medicine 02/26/23 Emely Cid MD Historical LMR Provider 01/02/17 Bravo Coulter MD, [place] [address] [place] [address] Historical LMR Provider 01/02/17 03/24/21 Melissa Mendez MD 15 [facility], [address] [place] [address] Historical LMR Provider 01/02/17 Conrado D eLuna MD [address] [facility], [address] [place] [address] Historical LMR Provider 01/02/17 03/24/21 Manpreet Cali CNP 15 [facility], [address] [place] [address] Historical LMR Provider 01/02/17 03/24/21 Derek Webster MD [address] [place] [address] [email or web address] Historical LMR Provider 01/02/17 03/24/21 documented as of this encounter Additional Source Comments The information contained in this document represents components of the legal health record. It is not the complete legal health record.[facility]
--- OUTSIDE RECORDS SUMMARY | 2024-12-14 08:35 | XMS_ITS | Encounter Summary ---
Author Organization [facility] Address [address] [place] [address] [place] [address] Phone Care Team Providers Care Patient Support Associate Name Role Phone Emely Cid MD Unavailable Bravo Coulter MD, [place] Unavailable Melissa Mendez MD Unavailable [phone] Conrado De Luna MD Unavailable [phone] Manpreet Cali CNP Unavailable Derek Webster MD Unavailable [phone] Emely Cid MD Primary Care Provider [phone] Emely Cid MD Primary Care Provider [phone] Encounter Details Date Type Department Care Team (Late st Contact Info) Description 09/15/2018 Transcribe Orders Virtual Department [address] [place] [address] Rosalia Mcclelland MD [address] [facility], [address] [place] [address] [email or web address] Calculus of kidney (Primary Dx); [...] Encounters Date Type Department Care Team (Late st Contact Info) Description 02/17/2025 2:15 PM EST Office Visit [facility] 10 [place] [address] Unknown, Unknown, Patricia John, ROXANA 10 [place] [address] documented as of this encounter Results * [...] urinary tract calculi identified. POS - [id number] us Rosalia Mcclelland MD IMG XR ABDOMEN Final [...] 20 cc or 14% post-void residual. POS [id number] Edited by: Jessy Wheeler on 11/18/2018 9:07 [...] CAT abdomen and pelvis 10/29/2017 and MRI [id number]/11/2018. FINDINGS: Kidneys: Right kidney measured at 12.2 [...] with 20 cc or14% post-void residual. POS [id number] Edited by: Jessy Wheeler on 11/18/2018 9:07 AM us Rosalia Mcclelland MD IM US RENAL Final Re sult documented in this encounter Visit Diagnoses Diagnosis Calculus of kidney- Primary Cyst of kidney, acquired Acquired cyst of kidney Calculus of kidney Cyst of kidney, acquired Acquired cyst of kidney Calculus of kidney Cyst of kidney, acquired Acquired cyst of kidney documented in this encounter Care Teams Patient Support Associate Relationship Specialty Start Date End Date Emely Cid MD PCP - General 01/21/17 02/25/23 Emely Cid MD [address] [place] [phone] [email or web address] PCP - General Family Medicine 02/26/23 Emely Cid MD Historical LMR Provider 01/02/17 Bravo Coulter MD, MS [address] [place] [address] Historical LMR Provider 01/02/17 03/24/21 Melissa Mendez MD [address] [place] [address] Historical LMR Provider 01/02/17 Cornado De Luna MD [address] [address] Historical LMR Provider 01/02/17 03/24/21 Manpreet Cali, MARKER HAND [address] [place] [address] Historical LMR Provider 01/02/17 03/24/21 Derek eWbster MD [address] [place] [address] [email or web address] Historical LMR Provider 01/02/17 03/24/21 documented as of this encounter Additional Source Comments The information contained in this document represents components of the legal health record. It is not the complete legal health record.[facility]
--- OUTSIDE RECORDS SUMMARY | 2024-12-14 08:35 | XMS_ITS | Encounter Summary ---
Author Organization [facility], Address [address] [place] [address] Phone Care Team Providers Care Forging Operator Name Role Phone Emely Cid MD Primary Care Provider Encounter Details Date Type Department Care Team (Late st Contact Info) Description 04/24/2023 Documentation Only [facility], [address] [place] [phone] Gina York [address] [place] [phone] Social History Tobacco Use Types Packs/Day Years [...] on filedocumented in this encounter Care Teams Forging Operator Relationship Specialty Start Date End Date Emely Cid MD [address] [place] [address] PCP - General Family Medicine 09/11/22 documented as of this encounter
--- OUTSIDE RECORDS SUMMARY | 2024-12-14 08:35 | XMS_ITS | Encounter Summary ---
Author Organization [facility], Address [address] [place] [address] Phone Care Team Providers Care Central Sterile Tech Name Role Phone Emely Cid MD Primary Care Provider Encounter Details Date Type Department Care Team (Late st Contact Info) Description 12/13/2022 Documentation Only [facility], [address] [place] [phone] Lis Martinez [address] [place] [phone] Social History Tobacco Use Types Packs/Day Years [...] on filedocumented in this encounter Care Teams Central Sterile Tech Relationship Specialty Start Date End Date Emely Cid MD [address] [place] [address] PCP - General Family Medicine 09/11/22 documented as of this encounter
--- OUTSIDE RECORDS SUMMARY | 2024-12-14 08:35 | XMS_ITS | Clinical Summary ---
Author Organization [facility], Address [address] [address] Phone Care Team Providers Care Documentation Specialist Name Role Phone Emely Cid MD Primary [...] age to complete this topic Insurance , [address] [place] [address] [place] [address] Care Teams Documentation Specialist Relationship Specialty Start Date End Date Emely Cid MD [address] [place] [address] PCP - General Family Medicine 09/11/22
--- OUTSIDE RECORDS SUMMARY | 2024-12-14 08:35 | XMS_ITS | Encounter Summary ---
Author Organization [facility] Address [address] [place] [address] [place] [address] Phone Care Team Providers Care Veterinary Receptionist Name Role Phone Emely Cid MD Unavailable [phone] Bravo Coulter MD, [place] Unavailable Melissa Mendez MD Unavailable Conrado De Luna MD Unavailable [phone] Manpreet Cali CNP Unavailable Derek Webster MD Unavailable [phone] Emely Cid MD Primary Care Provider Emely Cid MD Primary Care Provider Encounter Details Date Type Department Care Team (Late st Contact Info) Description 04/14/2019 Ancillary Orders Virtual Department [address] [place] [address] Rosalia Mcclelland MD [facility], [address] [place], [place] [phone] [email or web address] Kidney stone; Pre-op exam Social History Tobacco [...] Description 02/17/2025 2:15 PM EST Office Visit [facility] 10 [place] [address] Unknown, Unknown, MD Contreras, Patricia Goldman, ROXANA [address] [place] [address] documented as of this encounter Visit Diagnoses Diagnosis Kidney stone Calculus of kidney Pre-op exam documented in this encounter Care Teams Veterinary Receptionist Relationship Specialty Start Date End Date Emely Cid MD [email or web address] PCP - General 01/21/17 02/25/23 Emely Cid MD [address] [place] [phone] [email or web address] PCP - General Family Medicine 02/26/23 Emely Cid MD Historical LMR Provider 01/02/17 Bravo Coulter MD, MS [address] [place] [address] Historical LMR Provider 01/02/17 03/24/21 Melissa Mendez MD [address] [place] [address] Historical LMR Provider 01/02/17 Conrado De Luna MD 22 [facility], [address] [place] [address] Historical LMR Provider 01/02/17 03/24/21 Manpreet Cali FORGE TENDER 15 [facility], 2nd [place] [address] Historical LMR Provider 01/02/17 03/24/21 Derek Webster MD [address] [address] [email or web address] Historical LMR Provider 01/02/17 03/24/21 documented as of this encounter Additional Source Comments The information contained in this document represents components of the legal health record. It is not the complete legal health record.[facility]
--- OUTSIDE RECORDS SUMMARY | 2024-12-14 08:35 | XMS_ITS | Encounter Summary ---
Author Organization [facility] Address [address] [place] [address] Phone Care Team Providers Care Shell Grader Name Role Phone Emely Cid MD Unavailable [phone] Emely Cid MD Primary Care Provider Emely Cid MD Primary Care Provider Encounter Details Date Type Department Care Team (Latest Contact Info) Description 09/20/2022 Transcribe Orders Virtual Department [address] [place] [address] Angelica Lin CNP [address] [place] [address], [address] [address] [email or web address] Calculus of ureter (Primary Dx) Social [...] Description 02/17/2025 2:15 PM EST Office Visit [facility] 10 [place] [address] Unknown, Unknown, Patricia John, RESPITE WORKER [address] [place] [address] documented as of this encounter Visit Diagnoses Diagnosis Calculus of ureter- Primary documented in this encounter Care Teams Shell Grader Relationship Specialty Start Date End Date Emely Cid MD [email or web address] PCP - General 01/21/17 02/25/23 Emely Cid MD [address] [place] [phone] [email or web address] PCP - General Family Medicine 02/26/23 Emely Cid MD [email or web address] Historical LMR Provider 01/02/17 documented as of this encounter Additional Source Comments The information contained in this document represents components of the legal health record. It is not the complete legal health record.[facility]
--- OUTSIDE RECORDS SUMMARY | 2024-12-14 08:36 | XMS_ITS | Encounter Summary ---
Author Organization [facility] Address [address] [place] [address] Phone Care Team Providers Care Assistant Sales Director Name Role Phone Emely Cid MD Unavailable [phone] Emely Cid MD Primary Care Provider [phone] Emely Cid MD Primary Care Provider [phone] Encounter Details Date Type Department Care Team (Late st Contact Info) Description 04/30/2021 Procedure Pass [facility], [address] [address] Social History Tobacco Use Types Packs/Day Years [...] 3:35 PM EST Frida Carreon RN * [place] Suicide Severity Rating Scale (Screener/Recent Self-Report) Question Answer Date of Assessment Author 1. Wish to be (Past 1 Month) No 04/30/2021 3:35 PM EST Frida Chauhan RN 2. Non-Specific Active Suicidal Thoughts (Past 1 Month) No 04/30/2021 3:35 PM EST Frida Chauhan RN 6. Suicidal Behavior (Lifetime) No 04/30/2021 3:35 PM EST Frida Chauhan RN documented as of this encounter Plan of Treatment Upcoming Encounters Date Type Department Care Team (Late st Contact Info) Description 02/17/2025 2:15 PM EST Office Visit [facility] [address] [place] [address] Unknown, Unknown, Patricia John NP [address] [place] [address] documented as of this encounter Visit Diagnoses Not on filedocumented in this encounter Care Teams Assistant Sales Director Relationship Specialty Start Date End Date Emely Cid MD [email or web address] PCP - General 01/21/17 02/25/23 Emely Cid MD [address] [place] [phone] [email or web address] PCP - General Family Medicine 02/26/23 Emely Cid MD [email or web address] Historical LMR Provider 01/02/17 documented as of this encounter Additional Source Comments The information contained in this document represents components of the legal health record. It is not the complete legal health record.[facility]
--- OUTSIDE RECORDS SUMMARY | 2024-12-14 08:36 | XMS_ITS | Encounter Summary ---
Author Organization [facility] Address [address] [place] [address] Phone Care Team Providers Care Pumper Gager Apprentice Name Role Phone Emely Cid MD Unavailable [phone] Emely Cid MD Primary Care Provider [phone] Encounter Details Date Type Department Care Team (Late st Contact Info) Description 04/17/2024 Procedure Pass [facility], Ct Scan - [address] [address] Social History Tobacco Use Types Packs/Day Years [...] 04/17/2024 11:41 AM Britta Jones RN * [place] Suicide Severity Rating Scale (Screener/Recent Self-Report) Question Answer Date of Assessment Author 1. Wish to be (Past 1 Month) No 025 11:41 AM Britta Nicole, RN 2. Non-Specific Active Suici shawn Thoughts (Past 1 Month) No 04/17/2024 11:41 AM Claudine Nicole RN 6. Suicidal Behavior (Lifetime) No 11:41 AM Britta Nicole, RN documented as of this encounter Plan of Treatment Upcoming Encounters Date Type Department Care Team (Late st Contact Info) Description 02/17/2025 2:15 PM EST Office Visit [facility] [address] [place] [address] Unknown, Unknown, Patricia John NP [address] [place] [address] documented as of this encounter Visit Diagnoses Not on filedocumented in this encounter Care Teams Pumper Gager Apprentice Relationship Specialty Start Date End Date Emely Cid MD [address] [place] [phone] [email or web address] PCP - General Family Medicine 02/26/23 Emely Cid MD [email or web address] Historical LMR Provider 01/02/17 documented as of this encounter Additional Source Comments The information contained in this document represents components of the legal health record. It is not the complete legal health record.[facility]
--- OUTSIDE RECORDS SUMMARY | 2024-12-14 08:36 | XMS_ITS | Encounter Summary ---
Author Organization [facility] Address [address] [facility] [address] [place] [address] Phone Care Team Providers Care Bomb Technician Name Role Phone Emely Cid MD Unavailable Bravo Coulter MD, [place] Unavailable [phone] Melissa Mendez MD Unavailable Conrado De Luna MD Unavailable [phone] Manpreet Cali CNP Unavailable Derek Webster MD Unavailable [phone] Emely Cid MD Primary Care Provider [phone] Emely Cid MD Primary Care Provider [phone] Encounter Details Date Type Department Care Team (Late st Contact Info) Description 12/04/2019 Procedure Pass [facility], Ct Scan - [address] [address] Social History Tobacco Use Types Packs/Day Years [...] Description 02/17/2025 2:15 PM EST Office Visit [facility] 10 [place] [address] Unknown, Unknown, Patricia John, ARCHITECT NAVAL 10 [place] [address] documented as of this encounter Visit Diagnoses Not on filedocumented in this encounter Care Teams Bomb Technician Relationship Specialty Start Date End Date Emely Cid MD PCP - General 01/21/17 02/25/23 Emely Cid MD [address] [place] [phone] [email or web address] PCP - General Family Medicine 02/26/23 Emely Cid MD Historical LMR Provider 01/02/17 Bravo Coulter MD, [place] [address] [place] [address] [email or web address] Historical LMR Provider 01/02/17 03/24/21 Melissa Mendez MD [address] [place] [address] [email or web address] Historical LMR Provider 01/02/17 Conrado De Luna MD 22 [facility], [address] [place] [address] [email or web address] Historical LMR Provider 01/02/17 03/24/21 Manpreet Cali CNP 15 [facility], [address] [place] [address] Historical LMR Provider 01/02/17 03/24/21 Derek Webster MD [address] [place] [address] [email or web address] Historical LMR Provider 01/02/17 03/24/21 documented as of this encounter Additional Source Comments The information contained in this document represents components of the legal health record. It is not the complete legal health record.[facility]
--- OUTSIDE RECORDS SUMMARY | 2024-12-14 08:36 | XMS_ITS | Encounter Summary ---
Author Organization [facility] Address [facility] [employer] [facility] [address] [place] [address] Phone Care Team Providers Care Transport Operations Inspector Name Role Phone Emely Cid MD Unavailable [phone] Emely Cid MD Primary Care Provider [phone] Emely Cid MD Primary Care Provider [phone] Encounter Details Date Type Department Care Team (Late st Contact Info) Description 07/30/2021 Procedure Pass [address] [place] [address] Social History Tobacco Use Types Packs/Day Years [...] documented in this encounter Plan of Treatment Upcoming Encounters Date Type Department Care Team (Late st Contact Info) Description 02/17/2025 2:15 PM EST Office Visit [facility] Gastroenterology Clinic 10 [place] [address] Unknown, Unknown, MD Contreras, Patricia Goldman, VENEER GLUER 10 [place] [address] documented as of this encounter Visit Diagnoses Not on filedocumented in this encounter Care Teams Transport Operations Inspector Relationship Specialty Start Date End Date Emely Cid MD [email or web address] PCP - General 01/21/17 02/25/23 Emely Cid MD [address] [place] [phone] [email or web address] PCP - General Family Medicine 02/26/23 Emely Cid MD [email or web address] Historical LMR Provider 01/02/17 documented as of this encounter Additional Source Comments The information contained in this document represents components of the legal health record. It is not the complete legal health record.[facility]
--- OUTSIDE RECORDS SUMMARY | 2024-12-14 08:36 | XMS_ITS | Encounter Summary ---
Author Organization [facility] Address [address] [employer] [facility] [address] [place] [address] Phone Care Team Providers Care Machine Woodworking Sander Name Role Phone Emely Cid MD Unavailable Bravo Coulter MD, [place] Unavailable Melissa Mendez MD Unavailable Conrado De Luna MD Unavailable [phone] Manpreet Cali CNP Unavailable Derek Webster MD Unavailable [phone] Emely Cid MD Primary Care Provider [phone] Emely Cid MD Primary Care Provider [phone] Encounter Details Date Type Department Care Team (Late st Contact Info) Description 03/20/2021 Procedure Pass [facility], [address] [address] Social History Tobacco Use Types Packs/Day Years [...] Description 02/17/2025 2:15 PM EST Office Visit [facility] 10 [place] [address] Unknown, Unknown, Patricia John, GENETICS PHYSICIAN 10 [place] [address] documented as of this encounter Visit Diagnoses Not on filedocumented in this encounter Care Teams Machine Woodworking Sander Relationship Specialty Start Date End Date Emely Cid MD PCP - General 01/21/17 02/25/23 Emely Cid MD [address] [place] [phone] [email or web address] PCP - General Family Medicine 02/26/23 Emely Cid MD Historical LMR Provider 01/02/17 Bravo Coulter MD, MS [address] [place] [address] [email or web address] Historical LMR Provider 01/02/17 03/24/21 Melissa Mendez MD [address] [place] [address] [email or web address] Historical LMR Provider 01/02/17 Conrado De Luna MD 22 [facility], [address] [place] [address] [email or web address] Historical LMR Provider 01/02/17 03/24/21 Manpreet Cali CNP 15 [facility], [address] [place] [address] Historical LMR Provider 01/02/17 03/24/21 Derek Webster MD [address] [place] [address] [email or web address] Historical LMR Provider 01/02/17 03/24/21 documented as of this encounter Additional Source Comments The information contained in this document represents components of the legal health record. It is not the complete legal health record.[facility]
--- OUTSIDE RECORDS SUMMARY | 2024-12-14 08:36 | XMS_ITS | Encounter Summary ---
Author Organization [facility], Address [address] [place] [address] Phone Care Team Providers Care Metal Model Builder Name Role Phone Emely Cid MD Primary Care Provider [phone] Encounter Details Date Type Department Care Team (Late st Contact Info) Description 09/13/2022 Documentation Only [facility], - [address] [place] [address] Emely Cid MD [address] [place] [phone] Social History Tobacco Use Types Packs/Day Years [...] on filedocumented in this encounter Care Teams Metal Model Builder Relationship Specialty Start Date End Date Emely Cdi MD [address] [place] [phone] PCP - General Family Medicine 09/11/22 documented as of this encounter
--- OUTSIDE RECORDS SUMMARY | 2024-12-14 08:36 | XMS_ITS | Encounter Summary ---
Author Organization [facility] Address [address] [place] [address] [place] [address] Phone Care Team Providers Care Jacquard Loom Card Changer Name Role Phone Emely Cid MD Unavailable [phone] Emely Cid MD Primary Care Provider [phone] Emely Cid MD Primary Care Provider [phone] Reason for Referral * MRI/CAT Scan - Closed Specialty Diagnoses / Procedures Referred By Zeeshan rick Referred To Contact Radiology Diagnoses Facial weakness Procedures MRI Brain CHG MRI BRAIN Emely Cid MD Phone: tel: fax: mailto: Referral ID Status Reason Start Date Expiration Date Visits Re quested Visits Authorized [id number] Closed 07/26/2021 01/22/2022 1 1 Encounter Details Date Type Department Care Team (Late st Contact Info) Description 07/30/2021 Transcribe Orders [facility] Department 30 [place] [address] Emely Cid MD [address] [place] [address] [email or web address] Facial weakness (Primary Dx) Social History Tobacco [...] Description 02/17/2025 2:15 PM EST Office Visit [facility]ology Clinic 10 [place] [address] Unknown, Unknown, MD Contreras, Patricia Goldman, COACH TOUR DRIVER 10 [place] [address] documented as of this encounter Results * [...] weakness documented in this encounter Care Teams Jacquard Loom Card Changer Relationship Specialty Start Date End Date Emely Cid MD [email or web address] PCP - General 01/21/17 02/25/23 Emely Cid MD [address] [place] [address] [email or web address] PCP - General Family Medicine 02/26/23 Emely Cid MD [email or web address] Historical LMR Provider 01/02/17 documented as of this encounter Additional Source Comments The information contained in this document represents components of the legal health record. It is not the complete legal health record.[facility]
--- OUTSIDE RECORDS SUMMARY | 2024-12-14 08:36 | XMS_ITS | Encounter Summary ---
Author Organization [facility] Address [address] [place] [address] [place] [address] Phone Care Team Providers Care Harbor Police Launch Commander Name Role Phone Emely Cid MD Unavailable [phone] Emely Cid MD Primary Care Provider [phone] Emely Cid MD Primary Care Provider Encounter Details Date Type Department Care Team (Late st Contact Info) Description 05/01/2021 Procedure Pass [facility]iology [address] [place] [address] Social History Tobacco Use Types Packs/Day Years [...] Description 02/17/2025 2:15 PM EST Office Visit [facility] Clinic 10 [place], [place] [phone] Unknown, Unknown, MD Contreras, Patricia Goldman, ROXANA 10 [place], [place] [phone] documented as of this encounter Visit Diagnoses Not on filedocumented in this encounter Care Teams Harbor Police Launch Commander Relationship Specialty Start Date End Date Emely Cid MD [email or web address] PCP - General 01/21/17 02/25/23 Emely Cid MD [address] [place] [phone] [email or web address] PCP - General Family Medicine 02/26/23 Emely Cid MD [email or web address] Historical LMR Provider 01/02/17 documented as of this encounter Additional Source Comments The information contained in this document represents components of the legal health record. It is not the complete legal health record.[facility]
--- OUTSIDE RECORDS SUMMARY | 2024-12-14 08:36 | XMS_ITS | Encounter Summary ---
Author Organization [facility] Address [address] [place] [address] Phone Care Team Providers Care Homeland Security Program Specialist Name Role Phone Emely Cid MD Unavailable [phone] Emely Cid MD Primary Care Provider [phone] Encounter Details Date Type Department Care Team (Late st Contact Info) Description 04/17/2024 Procedure Pass [facility], Ct Scan - [address] [address] Social History Tobacco Use Types Packs/Day Years [...] 04/17/2024 11:41 AM Britta Jones RN * [place] Suicide Severity Rating Scale (Screener/Recent Self-Report) Question [...] Description 02/17/2025 2:15 PM EST Office Visit [facility] [address] [place] [address] Unknown, Unknown, Patricia John NP [address] [place] [address] documented as of this encounter Visit Diagnoses Not on filedocumented in this encounter Care Teams Homeland Security Program Specialist Relationship Specialty Start Date End Date Emely Cid MD [address] [place] [phone] [email or web address] PCP - General Family Medicine 02/26/23 Emely Cid MD [email or web address] Historical LMR Provider 01/02/17 documented as of this encounter Additional Source Comments The information contained in this document represents components of the legal health record. It is not the complete legal health record.[facility]
--- OUTSIDE RECORDS SUMMARY | 2024-12-14 08:36 | XMS_ITS | Encounter Summary ---
Author Organization [facility] Address [address] [employer] [facility] [address] [place] [address] Phone Care Team Providers Care Database Dba Name Role Phone Emely Cid MD Unavailable [phone] Emely Cid MD Primary Care Provider [phone] Encounter Details Date Type Department Care Team (Latest Contact Info) Description 05/27/2024 Transcribe Orders [facility] [address] [address] Patricia Contreras, ROXANA 10 [place] [address] Constipation, unspecified constipation type (Primary Dx) Social [...] Description 02/17/2025 2:15 PM EST Office Visit [facility] G[facility]ology Clinic [address] [place] [address] Unknown, Unknown, MD Contreras, Patricia Goldman, ROXANA 10 [place] [address] documented as of this encounter Results * Calprotectin, stool (06/15/2024 10:30 AM EDT) STOOL CALPROTECTIN 60 mcg/g [facility]/K[facility]EL [facility] Comment: (NOTE) Reference Range: <50 Normal 50-120 [...] 30 AM EDT 06/15/2024 11:06 AM EDT Patricia Contreras NP BODY FLUIDS AND STOOLS ORDERABLES Final Result [facility]/PETTY [facility] [address] [place] [address], [facility] [phone] * C-Reactive Protein (05/27/2024 3:31 PM EDT) C REACTIVE PROTEIN <3.0 0.0 - 4.0 mg/L [facility] Blood 05/27/2024 3:31 PM EDT 05/27/2024 3:41 PM EDT Patricia Contreras NP LAB BLOOD ORDER MIRTHA Final Result [address] [address] * (ABNORMAL) Comprehensive metabolic panel (05/27/2024 3:31 PM EDT) SODIUM 142 133 - 146 mmol/L [facility] POTASSIUM 4.2 3.3 - 5.1 mmol/L [facility] CHLORIDE 106 96 - 108 mmol/L [facility] CO2 26 21 - 35 mmol/L [facility] BUN 15 6 - 19 mg/dL [facility] CREATININE 0.80 0.5 - 1.5 mg/dL [facility] GLUCOSE 86 70 - 99 mg/dL [facility] ALBUMIN 4.5 3.9 - 4.8 g/dL [facility] TOTAL PROTEIN 6.9 6.5 - 8.0 g/dL [facility] CALCIUM 9.7 8.4 - 10.3 mg/dL [facility] ALKALINE PHOSPHATASE 121(H) 39 - 117 U/L [facility] TOTAL BILIRUBIN 0.5 0.0 - 1.2 mg/dL [facility] AST 25 0 - 37 U/L [facility] ALT 29 0 - 40 U/L [facility] GLOBULIN 2.4 1 - 4.8 g/dL [facility] EGFR 100 >59 mL/min/1.7 3m2 [facility] Comment:Estimated glomerular filtration rate calculated using the CKD-EPI refit equation. ANION GAP 14 10 - 20 mmol/L [facility] Blood 05/27/2024 3:31 PM EDT 05/27/2024 3:41 PM EDT Patricia Contreras PUBLIC HEALTH TECHNOLOGIST LAB BLOOD ORDER MIRTHA Final Result Performing Organization Address City/[facility]/ZIP Co de Phone Number [address] [address] * (ABNORMAL) CBC (05/27/2024 3:31 PM EDT) WBC 9.66 4.00 - 11.00 K/uL [facility] RBC 4.78 4.50 - 5.90 M/uL [facility] HGB 15.2 13.5 - 17.5 g/dL [facility] HCT 43.7 41.0 - 53.0 % [facility] PLT 219 150 - 450 K/uL [facility] MCV 91.4 80.0 - 100.0 fL [facility] MCH 31.8(H) 27.0 - 31.0 pg [facility] MCHC 34.8 32.0 - 36.0 g/dL [facility] RDW 13.1 11.5 - 14.5 % [facility] MPV 9.5 8.4 - 12.0 fL [facility] NRBC 0.00 0.00 /100 WBCs [facility] ABSOLUTE NRBC 0.00 0.00 K/uL [facility] Blood 05/27/2024 3:31 PM EDT 05/27/2024 3:41 PM EDT Patricia Contreras PUBLIC HEALTH TECHNOLOGIST LAB BLOOD ORDER MIRTHA Final Result [address] [address] * Immunoglobulin A (05/27/2024 3:31 PM EDT) IgA 88 70 - 400 mg/dL [facility] Blood 05/27/2024 3:31 PM EDT 05/27/2024 3:41 PM EDT us Patricia Aguirrekiewicz Contreras PUBLIC HEALTH TECHNOLOGIST LAB BLOOD ORDER MIRTHA Final Result [facility] [address] [place] [address] * Tissue transglutaminase IgA (05/27/2024 3:31 PM EDT) TTG IGA ANTIBODY <1.2 <4.0 (Negative) U/mL [facility] Blood 05/27/2024 3:31 PM EDT 05/27/2024 3:41 PM EDT Patricia Susi Contreras PUBLIC HEALTH TECHNOLOGIST LAB BLOOD ORDER MIRTHA Final Result Performing Organization Address City/[facility]/ZIP Co de Phone Number [facility] [address] [address] [place] [address] documented in this encounter Visit Diagnoses Diagnosis Constipation, unspecified constipation type- Primary documented in this encounter Care Teams Database Dba Relationship Specialty Start Date End Date Emely Cid MD [address] [place] [address] [email or web address] PCP - General Family Medicine 02/26/23 Emely Cid MD [email or web address] Historical LMR Provider 01/02/17 documented as of this encounter Additional Source Comments The information contained in this document represents components of the legal health record. It is not the complete legal health record.[facility]
--- OUTSIDE RECORDS SUMMARY | 2024-12-14 08:36 | XMS_ITS | Encounter Summary ---
Author Organization [facility] Address [address] [place] [address] Phone Care Team Providers Care Stars Specialist Name Role Phone Emely Cid MD Unavailable [phone] Emely Cid MD Primary Care Provider [phone] Emely Cid MD Primary Care Provider Encounter Details Date Type Department Care Team (Late st Contact Info) Description 04/30/2021 Procedure Pass [facility] [address] [place] [address] Social History Tobacco Use Types Packs/Day Years [...] 3:35 PM EST Frida Carreon, RN * [place] Suicide Severity Rating Scale (Screener/Recent Self-Report) Question [...] Description 02/17/2025 2:15 PM EST Office Visit [facility] Gastroenterology Clinic 10 [place] [address] Unknown, Unknown, Patricia John, ROXANA 10 [place] [address] documented as of this encounter Visit Diagnoses Not on filedocumented in this encounter Care Teams Stars Specialist Relationship Specialty Start Date End Date Emely Cid MD PCP - General 01/21/17 02/25/23 Emely Cid MD [address] [place] [phone] [email or web address] PCP - General Family Medicine 02/26/23 Emely Cid MD Historical LMR Provider 01/02/17 documented as of this encounter Additional Source Comments The information contained in this document represents components of the legal health record. It is not the complete legal health record.[facility]
--- OUTSIDE RECORDS SUMMARY | 2024-12-14 08:36 | XMS_ITS | Encounter Summary ---
Author Organization [facility] Address [address] [place] [address] [place] [address] Phone Care Team Providers Care Business Education Teacher Name Role Phone Emely Cid MD Unavailable [phone] Bravo Coulter MD, [place] Unavailable [phone] Melissa Mendez MD Unavailable [phone] Conrado De Luna MD Unavailable [phone] Manpreet Cali CNP Unavailable [phone] Derek Webster MD Unavailable [phone] Emely Cid MD Primary Care Provider [phone] Emely Cid MD Primary Care Provider [phone] Reason for Referral * MRI/CAT Scan - Closed Specialty Diagnoses / Procedures Referred By [facility] rick Referred To Contact Radiology Diagnoses Mild cognitive impairment, so stated Procedures MRI Brain CHG MRI BRAIN Emely Cid MD Phone: tel: fax: mailto: Referral ID Status Reason Start Date Expiration Date Visits Re quested Visits Authorized [id number] Closed 12/13/2020 06/11/2021 1 1 Encounter Details Date Type Department Care Team (Late st Contact Info) Description 12/13/2020 Transcribe Orders Virtual Department [address] [place] [address] Emely Cid MD [address] [place] [address] [email or web address] Mild cognitive impairment, so [...] Description 02/17/2025 2:15 PM EST Office Visit [facility] Clinic 10 [place] [address] Unknown, Unknown, MD Contreras, Patricia Goldman, RECORD CHANGER TESTER [address] [place] [address] documented as of this encounter Results * [...] seen in the cerebral peduncles. No abnormal qxqor-ysqzg-oduek blood or fluid collection, mass, or mass [...] seen in the cerebral peduncles. No abnormal djcwp-spbig-mxncn blood or fluid collection, mass, or masseffect [...] from 2017. No progressive lobar volume loss. Emely Cid MD IMG MR HEAD/NECK Final Resu lt documented in this encounter Visit Diagnoses Diagnosis Mild cognitive impairment, so stated- Primary Mild cognitive impairment, so stated documented in this encounter Care Teams Business Education Teacher Relationship Specialty Start Date End Date Emely Cid MD PCP - General 01/21/17 02/25/23 Emely Cid MD [address] [place] [phone] [email or web address] PCP - General Family Medicine 02/26/23 Emely Cid MD Historical LMR Provider 01/02/17 Bravo Coulter MD, MS [address] [place] [address] [email or web address] Historical LMR Provider 01/02/17 03/24/21 Melissa Mendez MD [address] [place] [address] Historical LMR Provider 01/02/17 Conrado De Luna MD 22 [facility] [address] [place] [address] [email or web address] Historical LMR Provider 01/02/17 03/24/21 Manpreet Cali CNP [address] [address] [email or web address] Historical LMR Provider 01/02/17 03/24/21 Derek Webster MD [address] [place] [address] [email or web address] Historical LMR Provider 01/02/17 03/24/21 documented as of this encounter Additional Source Comments The information contained in this document represents components of the legal health record. It is not the complete legal health record.[facility]
--- OUTSIDE RECORDS SUMMARY | 2024-12-14 08:36 | XMS_ITS | Encounter Summary ---
Author Organization [facility] Address [address] [place] [address] Phone Care Team Providers Care Water Attendant Name Role Phone Emely Cid MD Unavailable [phone] Emely Cid MD Primary Care Provider [phone] Emely Cid MD Primary Care Provider [phone] Encounter Details Date Type Department Care Team (Late st Contact Info) Description 04/30/2021 Procedure Pass [facility], Ct Scan - [address] [address] Social History Tobacco Use Types Packs/Day Years [...] 3:35 PM EST Frida Carreon, ELOY * [place] Suicide Severity Rating Scale (Screener/Recent Self-Report) Question [...] Description 02/17/2025 2:15 PM EST Office Visit [facility] 10 [place] [address] Unknown, Unknown, MD Contreras, Patricia Goldman NP 10 [place] [address] documented as of this encounter Visit Diagnoses Not on filedocumented in this encounter Care Teams Water Attendant Relationship Specialty Start Date End Date Emely Cid MD PCP - General 01/21/17 02/25/23 Emely Cid MD [address] [place] [phone] [email or web address] PCP - General Family Medicine 02/26/23 Emely Cid MD [email or web address] Historical LMR Provider 01/02/17 documented as of this encounter Additional Source Comments The information contained in this document represents components of the legal health record. It is not the complete legal health record.[facility]
--- OUTSIDE RECORDS SUMMARY | 2024-12-14 08:36 | XMS_ITS | Encounter Summary ---
Author Organization [facility] Address [facility] [employer] [facility] [address] [place] [address] Phone Care Team Providers Care Director Of Strategic Communications Name Role Phone Emely Cid MD Unavailable Bravo Coulter MD, [place] Unavailable [phone] Melissa Mendez MD Unavailable Conrado De Luna MD Unavailable [phone] Manpreet Cali CNP Unavailable Derek Webster MD Unavailable [phone] Emely Cid MD Primary Care Provider [phone] Emely Cid MD Primary Care Provider [phone] Encounter Details Date Type Department Care Team (Late st Contact Info) Description 12/13/2020 Procedure Pass [facility], [address] [address] Social History Tobacco Use Types Packs/Day Years [...] 02/17/2025 2:15 PM EST Office Visit [facility] 10 [place] [address] Unknown, Unknown, Patricia John, FLORAL ASSISTANT 10 [place] [address] documented as of this encounter Visit Diagnoses Not on filedocumented in this encounter Care Teams Director Of Strategic Communications Relationship Specialty Start Date End Date Emely Cid MD PCP - General 01/21/17 02/25/23 Emely Cid MD [address] [place] [phone] [email or web address] PCP - General Family Medicine 02/26/23 Emely Cid MD Historical LMR Provider 01/02/17 Bravo Coulter MD, MS [address] [place] [address] [email or web address] Historical LMR Provider 01/02/17 03/24/21 Melissa Mendez MD [address] [place] [address] [email or web address] Historical LMR Provider 01/02/17 Conrado De Luna MD 22 [facility], [address] [place] [address] [email or web address] Historical LMR Provider 01/02/17 03/24/21 Manpreet Cali CNP 15 [facility], [address] [place] [address] Historical LMR Provider 01/02/17 03/24/21 Derek Webster MD [address] [place] [address] [email or web address] Historical LMR Provider 01/02/17 03/24/21 documented as of this encounter Additional Source Comments The information contained in this document represents components of the legal health record. It is not the complete legal health record.[facility]
--- OUTSIDE RECORDS SUMMARY | 2024-12-14 08:36 | XMS_ITS | Encounter Summary ---
Author Organization [facility] Address [address] [place] [address] [place] [address] Phone Care Team Providers Care Watershed Coordinator Name Role Phone Emely Cid MD Unavailable Bravo Coulter MD, [place] Unavailable [phone] Melissa Mendez MD Unavailable Conrado De Luna MD Unavailable [phone] Manpreet Cali CNP Unavailable Derek Webster MD Unavailable [phone] Emely Cid MD Primary Care Provider Emely Cid MD Primary Care Provider Encounter Details Date Type Department Care Team (Latest Contact Info) Description 09/04/2020 Ancillary Orders Virtual Department [address] [place] [address] Kendell Cid PA [address] [place] [address] [email or web address] Cervical radiculopathy; Lumbar radiculopathy Social History Tobacco [...] Description 02/17/2025 2:15 PM EST Office Visit [facility] 10 [place] [address] Unknown, Unknown, MD Contreras, Patricia Goldman, ROXANA 10 [place] [address] documented as of this encounter Results * [...] L3-4 disc disease and L5-S1 facet arthropathy. us Kendell ADAMS IMG XR SPINE Final Resul [...] left-sided neural foraminal stenosis asabove. Kendell ADAMS IMG XR SPINE Final Resul t documented in this encounter Visit Diagnoses Diagnosis Cervical radiculopathy Brachial neuritis or radiculitis nos Lumbar radiculopathy Thoracic or lumbosacral neuritis or radiculitis, unspecified Cervical radiculopathy Brachial neuritis or radiculitis nos Lumbar radiculopathy Thoracic or lumbosacral neuritis or radiculitis, unspecified documented in this encounter Care Teams Watershed Coordinator Relationship Specialty Start Date End Date Emely Cid MD [email or web address] PCP - General 01/21/17 02/25/23 Emely Cid MD [address] [place] [phone] [email or web address] PCP - General Family Medicine 02/26/23 Emely Cid MD Historical LMR Provider 01/02/17 Bravo Coulter MD, MS [address] [place] [address] [email or web address] Historical LMR Provider 01/02/17 03/24/21 Melissa Mendez MD [address] [place] [address] [email or web address] Historical LMR Provider 01/02/17 Conrado De Luna MD [address] [place], [place] [address], [place] [address] Historical LMR Provider 01/02/17 03/24/21 Manpreet Cali CNP 15 [facility], 2nd [place] [address] Historical LMR Provider 01/02/17 03/24/21 Derek Webster MD [address] [address] [email or web address] Historical LMR Provider 01/02/17 03/24/21 documented as of this encounter Additional Source Comments The information contained in this document represents components of the legal health record. It is not the complete legal health record.[facility]
--- OUTSIDE RECORDS SUMMARY | 2024-12-14 08:36 | XMS_ITS | Encounter Summary ---
Author Organization [facility] Address [address] [place] [address] Phone Care Team Providers Care Environmental Coordinator Name Role Phone Emely Cid MD Unavailable [phone] Emely Cid MD Primary Care Provider [phone] Emely Cid MD Primary Care Provider [phone] Encounter Details Date Type Department Care Team (Late st Contact Info) Description 04/30/2021 Procedure Pass [facility], Ct Scan - [address] [address] Social History Tobacco Use Types Packs/Day Years [...] 3:35 PM EST Frida Carreon, ELOY * [place] Suicide Severity Rating Scale (Screener/Recent Self-Report) Question [...] Description 02/17/2025 2:15 PM EST Office Visit [facility] 10 [place] [address] Unknown, Unknown, MD Contreras, Patricia Goldman NP 10 [place] [address] documented as of this encounter Visit Diagnoses Not on filedocumented in this encounter Care Teams Environmental Coordinator Relationship Specialty Start Date End Date Emely Cid MD PCP - General 01/21/17 02/25/23 Emely Cid MD [address] [place] [phone] [email or web address] PCP - General Family Medicine 02/26/23 Emely Cid MD [email or web address] Historical LMR Provider 01/02/17 documented as of this encounter Additional Source Comments The information contained in this document represents components of the legal health record. It is not the complete legal health record.[facility]
--- OUTSIDE RECORDS SUMMARY | 2024-12-14 08:36 | XMS_ITS | Encounter Summary ---
Author Organization [facility] Address [address] [place] [address] Phone Care Team Providers Care Electrical Controls Designer Name Role Phone Emely Cid MD Unavailable [phone] Emely Cid MD Primary Care Provider [phone] Encounter Details Date Type Department Care Team (Late st Contact Info) Description 09/13/2024 Procedure Pass [facility], Ct Scan - [address] [address] Social History Tobacco Use Types Packs/Day Years [...] 3:23 PM EDT Seda Fox RN * [place] Suicide Severity Rating Scale (Screener/Recent Self-Report) Question Answer Date of Assessment Author 1. Wish to be (Past 1 Month) No 09/13/2024 3:23 PM EDT Brett Conrad RN 2. Non-Specific Active Suicidal Thoughts (Past 1 Month) No 09/13/2024 3:23 PM EDT Brett Conrad RN 6. Suicidal Behavior (Lifetime) No 09/13/2024 3:23 PM VINCENTT Brett Conrad RN documented as of this encounter Plan of Treatment Upcoming Encounters Date Type Department Care Team (Late st Contact Info) Description 02/17/2025 2:15 PM EST Office Visit [facility] [address] [place] [address] Unknown, Unknown, Patricia John NP [address] [place] [address] documented as of this encounter Visit Diagnoses Not on filedocumented in this encounter Care Teams Electrical Controls Designer Relationship Specialty Start Date End Date Emely Cid MD [address] [place] [address] [email or web address] PCP - General Family Medicine 02/26/23 Emely Cid MD [email or web address] Historical LMR Provider 01/02/17 documented as of this encounter Additional Source Comments The information contained in this document represents components of the legal health record. It is not the complete legal health record.[facility]
--- OUTSIDE RECORDS SUMMARY | 2024-12-14 08:37 | XMS_ITS | Encounter Summary ---
Author Organization [facility] Address [address] [place] [address] [place] [address] Phone Care Team Providers Care Server Security Administrator Name Role Phone Emely Cid MD Unavailable Bravo Coulter MD, [place] Unavailable [phone] Melissa Mendez MD Unavailable [phone] Conrado De Luna MD Unavailable [phone] Manpreet Cali CNP Unavailable [phone] Derek Webster MD Unavailable [phone] Emely Cid MD Primary Care Provider Emely Cid MD Primary Care Provider Encounter Details Date Type Department Care Team (Late st Contact Info) Description 02/03/2017 Ancillary Orders Virtual Department [address] [place] [address] Emely Cid MD [address] [place], [place] [phone] Dizziness and giddiness Social History Tobacco Use [...] 02/17/2025 2:15 PM EST Office Visit [facility] 10 [place] [address] Unknown, Unknown, Patricia John, ROXANA 10 [place] [address] documented as of this encounter Results * [...] No other significant intracranial abnormalities. POS - [id number] Narrative 02/13/2017 9:50 AM EST HISTORY: Presyncope, [...] likely. Noother significant intracranial abnormalities. POS - [id number] Emely Cid MD IMG MR HEAD/NECK Final Resu lt documented in this encounter Visit Diagnoses Diagnosis Dizziness and giddiness Dizziness and giddiness documented in this encounter Care Teams Server Security Administrator Relationship Specialty Start Date End Date Emely Cid MD PCP - General 01/21/17 02/25/23 Emely Cid MD [address] [place] [phone] [email or web address] PCP - General Family Medicine 02/26/23 Emely Cid MD Historical LMR Provider 01/02/17 Bravo Coulter MD, MS [address] [place] [address] Historical LMR Provider 01/02/17 03/24/21 Melissa Mendez MD [address] [address] Historical LMR Provider 01/02/17 Conrado De Luna MD 22 [facility], [facility] [address] [place] [address] Historical LMR Provider 01/02/17 03/24/21 Manpreet Cali REGULATORY AFFAIRS STRATEGY SPECIALIST [address] [address] Historical LMR Provider 01/02/17 03/24/21 Derek Webster MD [address] [place] [address] [email or web address] Historical LMR Provider 01/02/17 03/24/21 documented as of this encounter Additional Source Comments The information contained in this document represents components of the legal health record. It is not the complete legal health record.[facility]
--- OUTSIDE RECORDS SUMMARY | 2024-12-14 08:37 | XMS_ITS | Encounter Summary ---
Author Organization [facility] Address [address] [place] [address] [place] [address] Phone Care Team Providers Care Waistline Joiner Lockstitch Name Role Phone Emely Cid MD Unavailable Bravo Coulter MD, [place] Unavailable Melissa Mendez MD Unavailable [phone] Conrado De Luna MD Unavailable [phone] Manpreet Cali CNP Unavailable [phone] Derek Webster MD Unavailable [phone] Emely Cid MD Primary Care Provider [phone] Emely Cid MD Primary Care Provider [phone] Reason for Referral * MRI/CAT Scan - Closed Specialty Diagnoses / Procedures Referred By Zeeshan rick Referred To Contact Radiology Diagnoses Acquired cyst of kidney Procedures CT Abdomen/Pelvis Molly Sloan PA Phone: tel: fax: [email or web address] Referral ID Status Reason Start Date Expiration Date Visits Re quested Visits Authorized [id number] Closed 10/14/2017 12/13/2017 1 1 Encounter Details Date Type Department Care Team (Late Contact Info) Description 10/14/2017 Ancillary Orders Virtual Department 30 [place] [address] Molly Sloan PA [address] [phone] [email or web address] Acquired cyst of kidney Social History Tobacco [...] Upcoming Encounters Date Type Department Care Team ([facility] Contact Info) Description 02/17/2025 2:15 PM EST Office Visit [facility]ology [facility] 10 [place] [address] Unknown, Unknown, MD Contreras, Patricia Goldman, ROXANA 10 [place] [address] documented as of this encounter Results * [...] to prior studies as far back as 2016. A six-month follow-up CT study is recommended. [...] [address] study from 2015). Theminor variation in the measurements along the years and differentmodalities could be due to the mildly lobulated shape of the lesion andslice/plane selection used for measurements. Allowing to thesedifferences, the size of this lesion has been similar since 2015. Aperipheral punctate calcification is seen at the [...] kidney documented in this encounter Care Teams Waistline Joiner Lockstitch Relationship Specialty Start Date End Date Emely Cid MD PCP - General 01/21/17 02/25/23 Emely Cid MD [address] [place] [phone] [email or web address] PCP - General Family Medicine 02/26/23 Emely Cid MD Historical LMR Provider 01/02/17 Bravo Coulter MD, MS [address] [place] [address] [email or web address] Historical LMR Provider 01/02/17 03/24/21 Melissa Mendez MD [address] [place] [address] Historical LMR Provider 01/02/17 Conrado De Luna MD [address] [place] [address] [email or web address] Historical LMR Provider 01/02/17 03/24/21 Manpreet Cali, FIREFIGHTER TYPE ONE [address] [place] [address] Historical LMR Provider 01/02/17 03/24/21 Derek Webster MD [address] [place] [address] [email or web address] Historical LMR Provider 01/02/17 03/24/21 documented as of this encounter Additional Source Comments The information contained in this document represents components of the legal health record. It is not the complete legal health record.[facility]
--- OUTSIDE RECORDS SUMMARY | 2024-12-14 08:37 | XMS_ITS | Encounter Summary ---
Author Organization [facility] Address [address] [facility] [address] [place] [address] Phone Care Team Providers Care Bdc Manager Name Role Phone Emely Cid MD Unavailable Bravo Coulter MD, [place] Unavailable Melissa Mendez MD Unavailable Conrado De Luna MD Unavailable [phone] Manpreet Cali CNP Unavailable Derek Webster MD Unavailable [phone] Emely Cid MD Primary Care Provider [phone] Emely Cid MD Primary Care Provider [phone] Encounter Details Date Type Department Care Team (Late st Contact Info) Description 02/11/2018 Procedure Pass [facility], [address] [address] Social History Tobacco Use Types Packs/Day Years [...] Description 02/17/2025 2:15 PM EST Office Visit [facility] G[facility]ology Clinic 10 [place] [address] Unknown, Unknown, Patricia John, SWISS TYPE SCREW MACHINE OPERATOR 10 [place] [address] documented as of this encounter Visit Diagnoses Not on filedocumented in this encounter Care Teams Bdc Manager Relationship Specialty Start Date End Date Emely Cid MD PCP - General 01/21/17 02/25/23 Emely Cid MD [address] [place] [phone] [email or web address] PCP - General Family Medicine 02/26/23 Emely Cid MD Historical LMR Provider 01/02/17 Bravo Coulter MD, MS [address] [place] [address] [email or web address] Historical LMR Provider 01/02/17 03/24/21 Melissa Mendez MD [address] [place] [address] [email or web address] Historical LMR Provider 01/02/17 Conrado De Luna MD 22 [facility], [address] [place] [address] [email or web address] Historical LMR Provider 01/02/17 03/24/21 Manpreet Cali CNP 15 [facility], [address] [place] [address] Historical LMR Provider 01/02/17 03/24/21 Derek Webster MD [address] [place] [address] [email or web address] Historical LMR Provider 01/02/17 03/24/21 documented as of this encounter Additional Source Comments The information contained in this document represents components of the legal health record. It is not the complete legal health record.[facility]
--- OUTSIDE RECORDS SUMMARY | 2024-12-14 08:37 | XMS_ITS | Encounter Summary ---
Author Organization [facility] Address [address] [place] [address] [place] [address] Phone Care Team Providers Care Fugitive Detective Name Role Phone Emely Cid MD Unavailable Bravo Coulter MD, [place] Unavailable Melissa Mendez MD Unavailable [phone] Conrado De Luna MD Unavailable [phone] Manpreet Cali CNP Unavailable [phone] Derek Webster MD Unavailable [phone] Emely Cid MD Primary Care Provider Emely Cid MD Primary Care Provider Encounter Details Date Type Department Care Team (Late st Contact Info) Description 10/14/2017 Procedure Pass [facility], Ct Scan - [address] [address] Social History Tobacco Use Types Packs/Day Years [...] Visit [facility]enterology Clinic 10 [place] [address] Unknown, Unknown, Patricia John, STRAIGHTENING PRESS OPERATOR 10 [place] [address] documented as of this encounter Visit Diagnoses Not on filedocumented in this encounter Care Teams Fugitive Detective Relationship Specialty Start Date End Date Emely Cid MD PCP - General 01/21/17 02/25/23 Emely Cid MD [address] [place] [phone] [email or web address] PCP - General Family Medicine 02/26/23 Emely Cid MD Historical LMR Provider 01/02/17 Bravo Coulter MD, MS [address] [place] [address] [email or web address] Historical LMR Provider 01/02/17 03/24/21 Melissa Mendez MD [address] [place] [address] Historical LMR Provider 01/02/17 Conrado De Luna MD [address] [place] [address], [facility] [address] [place] [address] Historical LMR Provider 01/02/17 03/24/21 Manpreet Cali CNP 15 [facility], [address] [place] [address] [email or web address] Historical LMR Provider 01/02/17 03/24/21 Derek Webster MD [address] [place] [address] [email or web address] Historical LMR Provider 01/02/17 03/24/21 documented as of this encounter Additional Source Comments The information contained in this document represents components of the legal health record. It is not the complete legal health record.[facility]
--- OUTSIDE RECORDS SUMMARY | 2024-12-14 08:37 | XMS_ITS | Clinical Summary ---
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 with a websphere administrator in [place] Exercise-induced asthma 02/10/2018 Assessment & Plan (02/10/2018 [...] need to obtain his outpatient LFTs from [facility] pending, then we will feed low-fat diet [...] 11:45 PM EDT Emergency [facility] [address] [place] [address] Brannon Mesa MD Savage, Justin G, DO Discharge Disposition: Home or Self Care 09/13/2024 Procedure Pass [facility], Ct Scan - [facility] [address] [place] [address] from Last 3 Months Immunizations Immunization Administration [...] 09/13/2024 3:21 PM EDT Plan of Treatment Upcoming Encounters Date Type Department Care Team (Late st Contact Info) Description 02/17/2025 2:15 PM EST Office Visit [facility] [address] [place] [address] Unknown, Unknown, MD Contreras, Patricia Goldman, EMBROIDERY SPECIALIST [address] [place] [address] Health Maintenance Due Date Last Done Comments [...] within the abdomen or pelvis. Specifically noappendicitis. Emely Hernandez PA-C IMG CT ABD/PELVI S Final Result * Urinalysis w/reflex Urine Culture (09/13/2024 5:54 PM EDT) COLOR Yellow Yellow [facility] CLARITY Clear [facility] GLUCOSE Negative Negative [facility] BILI Negative Negative [facility] KETONES Negative Negative [facility] SPECIFIC GRAVITY >1.030 1.005 - 1.030 [facility] BLOOD Negative Negative [facility] PH 6.0 5.0 - 8.0 [facility] Protein-UA Negative Negative [facility] NITRITE Negative Negative [facility] Leukocyte esterase, ur Negative Negative [facility] Urine (Urine) 09/13/2024 5:5 4 PM EDT 09/13/2024 5:59 PM EDT us Brannon Mesa MD URINE ORDERABLES Final R esult Performing Organization Address [facility] Co de Phone Number [address] [address] * (ABNORMAL) LFTs (hepatic panel) (09/13/2024 3:30 PM EDT) ALKALINE PHOSPHATASE 119(H) 39 - 117 U/L [facility] TOTAL BILIRUBIN 0.5 0.0 - 1.2 mg/dL [facility] DIRECT BILIRUBIN 0.2 0.0 - 0.2 mg/dL [facility] Bilirubin (Indirect) 0.3 0 - 1.5 mg/dL [facility] AST 19 0 - 37 U/L [facility] ALT 22 0 - 40 U/L [facility] TOTAL PROTEIN 6.8 6.5 - 8.0 g/dL [facility] ALBUMIN 4.4 3.9 - 4.8 g/dL [facility] GLOBULIN 2.4 1 - 4.8 g/dL [facility] A/G Ratio 1.83 1.00 - 4.80 RATIO [facility] Blood 09/13/2024 3:30 PM EDT 09/13/2024 3:37 PM EDT us Brannon Mesa MD LAB BLOOD ORDERABLES Fin al Result Performing Organization Address [facility]/ZIP Co de Phone Number [address] [address] * (ABNORMAL) CBC and differential (09/13/2024 3:30 PM EDT) WBC 9.49 4.00 - 11.00 K/uL [facility] RBC 4.79 4.50 - 5.90 M/uL [facility] HGB 15.1 13.5 - 17.5 g/dL [facility] HCT 44.5 41.0 - 53.0 % [facility] PLT 223 150 - 450 K/uL [facility] MCV 92.9 80.0 - 100.0 fL [facility] MCH 31.5(H) 27.0 - 31.0 pg [facility] MCHC 33.9 32.0 - 36.0 g/dL [facility] RDW 13.2 11.5 - 14.5 % [facility] MPV 8.9 8.4 - 12.0 fL [facility] NRBC 0.00 0.00 /100 WBCs [facility] ABSOLUTE NRBC 0.00 0.00 K/uL [facility] DIFF METHOD Auto [facility] NEUTS 65.8 48.0 - 76.0 % [facility] LYMPHS 21.6 18.0 - 41.0 % [facility] MONOS 8.2 4.0 - 11.0 % [facility] EOS 3.4 0.0 - 5.0 % [facility] BASOS 0.7 0.0 - 1.5 % [facility] Granulocytes, immature (%) 0.3 0.0 - 0.9 % [facility] ABSOLUTE NEUTS 6.24 1.92 - 7.60 K/uL [facility] ABSOLUTE LYMPHS 2.05 0.72 - 4.10 K/uL [facility] ABSOLUTE MONOS 0.78 0.16 - 1.10 K/uL [facility] ABSOLUTE EOS 0.32 0.00 - 0.50 K/uL [facility] ABSOLUTE BASOS 0.07 0.00 - 0.15 K/uL [facility] Granulocytes, immature 0.03 0.00 - 0.09 K/uL [facility] Blood 09/13/2024 3:30 PM EDT 09/13/2024 3:37 PM EDT us Brannon Mesa MD LAB BLOOD ORDERABLES Fin al Result [facility] [address] [place] [address] * Lipase (09/13/2024 3:30 PM EDT) LIPASE 26 16 - 63 U/L [facility] Blood 09/13/2024 3:30 PM EDT 09/13/2024 3:37 PM EDT Brannon Mesa MD LAB BLOOD ORDERABLES Fin al Result Performing Organization Address City/[facility]/ZIP Co de Phone Number [address] [address] * Basic metabolic panel (09/13/2024 3:30 PM EDT) Pathologist [facility] SODIUM 141 133 - 146 mmol/L [facility] CHLORIDE 107 96 - 108 mmol/L [facility] POTASSIUM 4.2 3.3 - 5.1 mmol/L [facility] CO2 24 21 - 35 mmol/L [facility] BUN 17 6 - 19 mg/dL [facility] CREATININE 0.90 0.5 - 1.5 mg/dL [facility] GLUCOSE 89 70 - 99 mg/dL [facility] CALCIUM 9.7 8.4 - 10.3 mg/dL [facility] EGFR 97 >59 mL/min/1.7 3m2 [facility] Comment:Estimated glomerular filtration rate calculated using the CKD-EPI refit equation. ANION GAP 14 10 - 20 mmol/L [facility] Blood 09/13/2024 3:30 PM EDT 09/13/2024 3:37 PM EDT us Brannon Mesa MD LAB BLOOD ORDERABLES Fin al Result Performing Organization Address [facility]/ZIP Co de Phone Number [address] [address] * Hepatitis C antibody, qualitative (02/12/2018 5:33 AM EST) HCV Negative Negative [facility] Comment: This is a screening test and should be confirmed with molecular testing Blood 02/12/2018 5:33 AM EST 02/12/2018 6:11 AM EST [place] Krishnan MD LAB BLOOD ORDERABLES Final Result [address] [address] from Last 3 Months or Most Recently Relevant to Health Maintenance Insurance MEDICARE PART A & B [employer] MED[employer]ARE PART A & B [place]IC[place] B [facility] & B [facility] MEDICARE PART A & B [place] WORKERS COMPENSATION Advance Directives For more information, please contact: [phone] (9AM - 5PM [facility], Friday-Friday) Documents on File Type Date Recorded 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 Healthcare Proxy 05/02/2021 4:07 PM Healthcare Proxy 02/13/2018 3:57 PM * Full Code (Latest Code Status on File) Date Activated Date Inactivated Comments 04/30/2021 6:21 PM Question Answer Comments Code Status Confirmed With: Patient * Full Code (Presumed) Date Activated Date Inactivated Comments 02/10/2018 5:14 PM 02/12/2018 3:07 PM Healthcare Agents on File Name Relationship Healthcare Agent Relationship Communication Paras Guajardo Spouse .Primary Health Care Agent (Proxy form on file) Care Teams Frame Changer Relationship Specialty Start Date End Date Emely Cid MD [address] [place] [phone] [email or web address] PCP - General Family Medicine 02/26/23 Emely Cid MD [email or web address] Historical LMR Provider 01/02/17 Additional Source Comments The information contained in this document represents components of the legal health record. It is not the complete legal health record.[facility]
--- OUTSIDE RECORDS SUMMARY | 2024-12-14 08:37 | XMS_ITS | Encounter Summary ---
Author Organization [facility] Address [address] [place] [address] Phone Care Team Providers Care Salon Leader Name Role Phone Emely Cid MD Unavailable [phone] Emely Cid MD Primary Care Provider [phone] Emely Cid MD Primary Care Provider [phone] Encounter Details Date Type Department Care Team (Late st Contact Info) Description 10/10/2021 Procedure Pass [facility], Ct Scan - [address] [address] Social History Tobacco Use Types Packs/Day Years [...] 4:39 PM EDT Seda Fox RN * [place] Suicide Severity Rating Scale (Screener/Recent Self-Report) Question [...] Description 02/17/2025 2:15 PM EST Office Visit [facility] [address] [place] [address] Unknown, Unknown, Patricia John NP [address] [place] [address] documented as of this encounter Visit Diagnoses Not on filedocumented in this encounter Care Teams Salon Leader Relationship Specialty Start Date End Date Emely Cid MD [email or web address] PCP - General 01/21/17 02/25/23 Emely Cid MD [address] [place] [phone] [email or web address] PCP - General Family Medicine 02/26/23 Emely Cid MD [email or web address] Historical LMR Provider 01/02/17 documented as of this encounter Additional Source Comments The information contained in this document represents components of the legal health record. It is not the complete legal health record.[facility]
--- OUTSIDE RECORDS SUMMARY | 2024-12-14 08:37 | XMS_ITS | Encounter Summary ---
Author Organization [facility] Address [address] [place] [address] [place] [address] Phone Care Team Providers Care Java Web Engineer Name Role Phone Emely Cid MD Unavailable [phone] Bravo Coulter MD, [place] Unavailable [phone] Melissa Mendez MD Unavailable Conrado De Luna MD Unavailable [phone] Manpreet Cali CNP Unavailable [phone] Derek Webster MD Unavailable [phone] Emely Cid MD Primary Care Provider Emely Cid MD Primary Care Provider Encounter Details Date Type Department Care Team (Latest Contact Info) Description 10/22/2017 Transcribe Orders [facility] [address] [place] [address] Rosalia Mcclelland MD [facility], [address] [place] [address] [email or web address] Uric acid nephrolithiasis (Primary Dx) [...] Description 02/17/2025 2:15 PM EST Office Visit [facility] [address] [place] [address] Unknown, Unknown, MD Contreras, Patricia Goldman, COAL SAMPLE TESTER [address] [place] [address] documented as of this encounter Results * Creatinine/eGFR (10/22/2017 7:38 AM EDT) CREATININE 0.90 0.5 - 1.5 mg/dL [facility] EGFR 96 >59 mL/min/1.7 3m2 [facility] Comment:If patient is black, multiply result by 1.159. Estimated glomerular filtration rate calculated using the CKD-EPI equation. Blood 10/22/2017 7:38 AM EDT 10/22/2017 8:02 AM EDT us Rosalia Mcclelland MD LAB BLOOD ORDERABLES Fin al Result [address] [address] * BUN (10/22/2017 7:38 AM EDT) BUN 16 6 - 19 mg/dL [facility] Blood 10/22/2017 7:38 AM EDT 10/22/2017 8:02 AM EDT us Rosalia Mcclelland MD LAB BLOOD ORDERABLES Fin al Result [address] [address] documented in this encounter Visit Diagnoses Diagnosis Uric acid nephrolithiasis- Primary documented in this encounter Care Teams Java Web Engineer Relationship Specialty Start Date End Date Emely Cid MD PCP - General 01/21/17 02/25/23 Emely Cid MD [address] [place] [phone] [email or web address] PCP - General Family Medicine 02/26/23 Emely Cid MD Historical LMR Provider 01/02/17 Bravo Coulter MD, MS [address] [place] [address] Historical LMR Provider 01/02/17 03/24/21 Melissa Mendez MD [address] [place] [address] Historical LMR Provider 01/02/17 Conrado De Luna MD 22 [facility], [address] [address] Historical LMR Provider 01/02/17 03/24/21 Manpreet Cali, FISH BUTCHER [address] [place] [address] Historical LMR Provider 01/02/17 03/24/21 Derek Webster MD [address] [place] [address] [email or web address] Historical LMR Provider 01/02/17 03/24/21 documented as of this encounter Additional Source Comments The information contained in this document represents components of the legal health record. It is not the complete legal health record.[facility]
--- OUTSIDE RECORDS SUMMARY | 2024-12-14 08:37 | XMS_ITS | Encounter Summary ---
Author Organization [facility] Address [address] [place] [address] [place] [address] Phone Care Team Providers Care Machine Stapler Name Role Phone Emely Cdi MD Unavailable [phone] Bravo Coulter MD, [place] Unavailable [phone] Melissa Mendez MD Unavailable [phone] Conrado De Luna MD Unavailable [phone] Manpreet Cali CNP Unavailable [phone] Derek Webster MD Unavailable [phone] Emely Cid MD Primary Care Provider [phone] Emely Cid MD Primary Care Provider [phone] Reason for Referral * MRI/CAT Scan - Closed Specialty Diagnoses / Procedures [facility] To Contact Radiology Diagnoses Abnormal findings on diagnostic imaging of other specified body structures Procedures CT Chest Emely Cid MD Phone: tel: fax: [email or web address] Referral ID Status Reason Start Date Expiration Date Visits Re quested Visits Authorized [id number] Closed 05/08/2018 07/07/2018 1 1 Encounter Details Date Type Department Care Team (Late st Contact Info) Description 05/08/2018 Ancillary Orders Virtual Department [address] [place] [address] Emely Cid MD [address] [place] [address] [email or web address] Abnormal findings on diagnostic imaging of other [...] Upcoming Encounters Date Type Department Care Team ([facility] Contact Info) Description 02/17/2025 2:15 PM EST Office Visit [facility] 10 [place] [address] Unknown, Unknown, MD Contreras, Patricia Goldman, ROXANA [address] [place] [address] documented as of this encounter Results * [...] recommendations. TOTAL CTDIvol: 8.6 mGy POS - [id number] Narrative 05/20/2018 3:14 PM EST EXAM: CT [...] recommendations. TOTAL CTDIvol: 8.6 mGy POS - [id number] Emely Cid MD IMG CT CHEST Final Resul t documented in this encounter Visit Diagnoses Diagnosis Abnormal findings on diagnostic imaging of other specified body structures Abnormal findings on diagnostic imaging of other specified body structures documented in this encounter Care Teams Machine Stapler Relationship Specialty Start Date End Date Emely Cid MD PCP - General 01/21/17 02/25/23 Emely Cid MD [address] [place] [phone] [email or web address] PCP - General Family Medicine 02/26/23 Emely Cid MD Historical LMR Provider 01/02/17 Bravo Coulter MD, MS [address] [place] [address] [email or web address] Historical LMR Provider 01/02/17 03/24/21 Melissa Mendez MD [address] [address] [email or web address] Historical LMR Provider 01/02/17 Conrado De Luna MD 22 [facility], [facility] [address] [place] [address] Historical LMR Provider 01/02/17 03/24/21 Manpreet Cali CNP 15 [facility], [address] [place] [address] [email or web address] Historical LMR Provider 01/02/17 03/24/21 Derek Webster MD [address] [place] [address] [email or web address] Historical LMR Provider 01/02/17 03/24/21 documented as of this encounter Additional Source Comments The information contained in this document represents components of the legal health record. It is not the complete legal health record.[facility]
--- OUTSIDE RECORDS SUMMARY | 2024-12-14 08:37 | XMS_ITS | Encounter Summary ---
Author Organization [facility] Address [address] [place] [address] Phone Care Team Providers Care Financial Business Analyst Name Role Phone Emely Cid MD Unavailable [phone] Emely Cid MD Primary Care Provider [phone] Emely Cid MD Primary Care Provider [phone] Encounter Details Date Type Department Care Team (Late st Contact Info) Description 10/10/2021 Procedure Pass [facility], Ct Scan - [address] [address] Social History Tobacco Use Types Packs/Day Years [...] 4:39 PM EDT Seda Fox RN * [place] Suicide Severity Rating Scale (Screener/Recent Self-Report) Question [...] 02/17/2025 2:15 PM EST Office Visit [facility] [address] [place] [address] Unknown, Unknown, Patricia John NP [address] [place] [address] documented as of this encounter Visit Diagnoses Not on filedocumented in this encounter Care Teams Financial Business Analyst Relationship Specialty Start Date End Date Emely Cid MD [email or web address] PCP - General 01/21/17 02/25/23 Emely Cid MD [address] [place] [phone] [email or web address] PCP - General Family Medicine 02/26/23 Emely Cid MD [email or web address] Historical LMR Provider 01/02/17 documented as of this encounter Additional Source Comments The information contained in this document represents components of the legal health record. It is not the complete legal health record.[facility]
--- OUTSIDE RECORDS SUMMARY | 2024-12-14 08:37 | XMS_ITS | Encounter Summary ---
Author Organization [facility] Address [address] [place] [address] [place] [address] Phone Care Team Providers Care News Librarian Name Role Phone Emely Cid MD Unavailable Bravo Coulter MD, [place] Unavailable Melissa Mendez MD Unavailable Conrado De Luna MD Unavailable [phone] Manpreet Cali CNP Unavailable [phone] Derek Webster MD Unavailable [phone] Emely Cid MD Primary Care Provider Emely Cid MD Primary Care Provider Encounter Details Date Type Department Care Team (Late st Contact Info) Description 08/26/2017 Ancillary Orders Virtual Department [address] [place] [address] Rosalia Mcclelland MD Critical access hospital[facility], [address] [place] [address] [email or web address] Social History Tobacco Use Types [...] Description 02/17/2025 2:15 PM EST Office Visit [facility] 10 [place] [address] Unknown, Unknown, Patricia John, ROXANA [address] [place] [address] documented as of this encounter Results * [...] or nephrolithiasis on either side. POS - [id number] Edited by: Jessy Wheeler on 10/01/2017 9:40 [...] stone. Procedure Note Viet Joel MD - 07/19/2018 COMPARISON: 07/19/2016, CT abdomen 06/02/2015 FINDINGS: Kidneys [...] or nephrolithiasis on either side. POS - [id number] Edited by: Jessy Wheeler on 10/01/2017 9:40 AM us Rosalia Mcclelland MD [facility] US RENAL Final Re sult documented in this encounter Visit Diagnoses Diagnosis Kidney stone Calculus of kidney Kidney stone Calculus of kidney documented in this encounter Care Teams News Librarian Relationship Specialty Start Date End Date Emely Cid MD [email or web address] PCP - General 01/21/17 02/25/23 Emely Cid MD [address] [place] [address] [email or web address] PCP - General Family Medicine 02/26/23 Emely Cid MD Historical LMR Provider 01/02/17 Bravo Coulter MD, MS [address] [place] [address] [email or web address] Historical LMR Provider 01/02/17 03/24/21 Melissa Mendez MD [address] [place] [address] Historical LMR Provider 01/02/17 Conrado De Luna MD [address] [address] [email or web address] Historical LMR Provider 01/02/17 03/24/21 Manpreet Cali, SKI PATROL [address] [place] [address] Historical LMR Provider 01/02/17 03/24/21 Derek Webster MD [address] [place] [phone] [email or web address] Historical LMR Provider 01/02/17 03/24/21 documented as of this encounter Additional Source Comments The information contained in this document represents components of the legal health record. It is not the complete legal health record.[facility]
--- OUTSIDE RECORDS SUMMARY | 2024-12-14 08:37 | XMS_ITS | Encounter Summary ---
Author Organization [facility] Address [facility] [employer] [facility] [address] [place] [address] Phone Care Team Providers Care Intelligence Senior Sergeant Name Role Phone Emely Cid MD Unavailable Bravo Coulter MD, [place] Unavailable Melissa Mendez MD Unavailable Conrado De Luna MD Unavailable [phone] Manpreet Cali CNP Unavailable Derek Webster MD Unavailable [phone] Emely Cid MD Primary Care Provider Emely Cid MD Primary Care Provider Encounter Details Date Type Department Care Team (Late st Contact Info) Description 02/03/2017 Procedure Pass [facility], [address] [address] Social History Tobacco Use Types Packs/Day Years [...] [facility] [address] [place] [address] Unknown, Unknown, MD Contreras, Patricia Goldman, MAKEUP INSTRUCTOR [address] [place] [address] documented as of this encounter Visit Diagnoses Not on filedocumented in this encounter Care Teams Intelligence Senior Sergeant Relationship Specialty Start Date End Date Emely Cid MD [email or web address] PCP - General 01/21/17 02/25/23 Emely Cid MD [address] [place] [phone] [email or web address] PCP - General Family Medicine 02/26/23 Emely Cid MD Historical LMR Provider 01/02/17 Bravo Coulter MD, [place] [address] [place] [id number] Historical LMR Provider 01/02/17 03/24/21 Melissa Mendez MD [address] [address] Historical LMR Provider 01/02/17 Conrado De Luna MD [address] [facility], [address] [place] [address] Historical LMR Provider 01/02/17 03/24/21 Manpreet Cali CNP [address] [facility], 2nd [place] [address] Historical LMR Provider 01/02/17 03/24/21 Derek Webster MD [address] [address] [email or web address] Historical LMR Provider 01/02/17 03/24/21 documented as of this encounter Additional Source Comments The information contained in this document represents components of the legal health record. It is not the complete legal health record.[facility]
--- OUTSIDE RECORDS SUMMARY | 2024-12-14 08:37 | XMS_ITS | Encounter Summary ---
Author Organization [facility] Address [address] [place] [address] [place] [address] Phone Care Team Providers Care Supervisor Tumbling And Rolling Name Role Phone Emely Cid MD Unavailable Bravo Coulter MD, [place] Unavailable Melissa Mendez MD Unavailable [phone] Conrado De Luna MD Unavailable [phone] Manpreet Cali CNP Unavailable Derek Webster MD Unavailable [phone] Emely Cid MD Primary Care Provider Emely Cid MD Primary Care Provider Encounter Details Date Type Department Care Team (Late st Contact Info) Description 01/21/2017 Transcribe Orders [facility] Laboratory [address] [address] Lisandro Forbes MD [email or web address] Chronic diarrhea (Primary Dx) Social History Tobacco [...] Description 02/17/2025 2:15 PM EST Office Visit [facility] [address] [place] [address] Unknown, Unknown, Patricia John, ROXANA [address] [place] [address] documented as of this encounter Procedures Procedure Name Priority Date/Time Associated Diagnosis Comments CBC Routine 01/21/2017 1:51 PM EST Chronic diarrhea C-REACTIVE PROTEIN Routine 01/21/2017 1: 51 PM EST Chronic diarrhea documented in this encounter Results * C-Reactive Protein (01/21/2017 1:51 PM EST) C REACTIVE PROTEIN 0.2 0 - 0.5 mg/L [facility] Blood 01/21/2017 1:51 PM EST 01/21/2017 1:56 PM EST us Lisandro Forbes MD LAB BLOOD ORDERABLES Final Result [facility] [address] [place] [address] * CBC (01/21/2017 1:51 PM EST) WBC 8.00 3.40 - 11.20 K/uL [facility] RBC 5.02 4.50 - 5.50 M/uL [facility] HGB 15.7 13.0 - 17.0 g/dL [facility] HCT 44.6 40.0 - 51.0 % [facility] PLT 266 130 - 400 K/uL [facility] MCV 88.8 79.0 - 98.0 fL [facility] MCH 31.3 27.0 - 34.8 pg [facility] MCHC 35.2 31.5 - 36.0 g/dL [facility] RDW 12.9 10.8 - 14.6 % [facility] MPV 9.5 9.4 - 12.4 fl [facility] NRBC 0.00 /100 WBCs [facility] ABSOLUTE NRBC 0.00 K/uL [facility] Blood 01/21/2017 1:5 1 PM EST 01/21/2017 1:56 PM EST us Lisandro Forbes MD LAB BLOOD ORDERABLES Final Result Performing Organization Address City/State/[facility] Co de Phone Number [facility] [address] [place] [address] documented in this encounter Visit Diagnoses Diagnosis Chronic diarrhea- Primary Diarrhea documented in this encounter Care Teams Supervisor Tumbling And Rolling Relationship Specialty Start Date End Date Emely Cid MD [email or web address] PCP - General 01/21/17 02/25/23 Emely Cid MD [address] [place] [phone] [email or web address] PCP - General Family Medicine 02/26/23 Emely Cid MD Historical LMR Provider 01/02/17 Bravo Coulter MD, MS [address] [place] [address] [email or web address] Historical LMR Provider 01/02/17 03/24/21 Melissa Mendez MD [address] [place] [address] [email or web address] Historical LMR Provider 01/02/17 Conrado De Luna MD 22 [facility], [address] [place] [address] [email or web address] Historical LMR Provider 01/02/17 03/24/21 Manpreet Cali CNP 15 [facility], 2nd [place] [address] [email or web address] Historical LMR Provider 01/02/17 03/24/21 Derek Webster MD [address] [address] [email or web address] Historical LMR Provider 01/02/17 03/24/21 documented as of this encounter Additional Source Comments The information contained in this document represents components of the legal health record. It is not the complete legal health record.[facility]
== END 2024-12-14 08:57 | disposition home or self-care (01) ==
LOC: HO.HSMS 08:20
PROVIDERS: PCP Family Medicine; Visit Provider Psychiatry & Neurology Neurology
DX: G43.E19 Chronic migraine with aura, intractable, without status migrainosus (principal)
CPT/HCPCS: 64615

== ENCOUNTER → 2024-12-14 08:19 | Outpatient (BNVA) | payer MEDICARE, MEDICAID, SELFPAY | PROVIDERS: PCP Family Medicine; Visit Provider Psychiatry & Neurology Neurology | DX: G43.E19 Chronic migraine with aura, intractable, without status migrainosus (principal); G25.81 Restless legs syndrome | CPT/HCPCS: 64615; 99211; J0585 ==